=== PATIENT | male | born 1965 | race Caucasian/White ===

== ENCOUNTER → 2016-07-30 | Outpatient (CLI) | payer BC ==
[~2016-07-30] MED LIST: IBP800T PO
--- OUTSIDE RECORDS SUMMARY | 2016-07-30 12:46 | XMS REPORT | Continuity of Care Document ---
Author Author [facility] Address Unknown Phone Unavailable Allergies Medications Problems Date Dx Coded Attending Type Code Diagnosis Diagnosed By 07/16/2012 079.99 VIRAL SYNDROME 07/16/2012 784.91 POSTNASAL DRIP 07/16/2012 CONNIE GOEL APRN 079.99 VIRAL SYNDROME 07/16/2012 CONNIE GOEL APRN 784.91 POSTNASAL DRIP 07/16/2012 SCOTTY WALLIS JAMILAH R 079.99 VIRAL SYNDROME 07/16/2012 SCOTTY WALLIS, JAMILAH R 784.91 POSTNASAL DRIP 07/16/2012 SCOTTY WALLIS JAMILAH R 079.99 VIRAL SYNDROME 07/16/2012 SCOTTY WALLIS, JAMILAH R 784.91 POSTNASAL DRIP 06/25/2013 CONNIE GOEL APRN 719.47 PAIN- FOOT 06/25/2013 SCOTTY TICKET MARKER, JAMILAH R 719.47 PAIN- FOOT 06/25/2013 SCOTTY ADAMSN, JAMILAH R 719.47 PAIN- FOOT 07/22/2013 SCOTTY WALLIS, JAMILAH R 382.9 OTITIS MEDIA 07/22/2013 SCOTTY WALLIS, JAMILAH R 462 ACUTE PHARYNGITIS 07/22/2013 SCOTTY WALLIS JAMILAH R 786.2 COUGH 07/22/2013 SCOTTY WALLIS, JAMILAH R 382.9 OTITIS MEDIA 07/22/2013 SCOTTY WALLIS, JAMILAH R 462 ACUTE PHARYNGITIS 07/22/2013 SCOTTY WALLIS, JAMILAH R 786.2 COUGH 11/25/2013 SCOTTY WALLIS, JAMILAH R 784.0 HEADACHE 11/25/2013 SCOTTY WALLIS JAMILAH R V70.0 EXAM - ROUTINE H&P Procedures Code [place] [address] ROUTINE VENIPUNCTURE 11/29/2013 12312 CBC 11/29/2013 [id number] GFR CALC (RESULT ONLY) 11/29/2013 [id number] CMP 11/29/2013 Results Encounters ACCT No. Visit Date/Time Discharge Status Pt. Type Provider Facility Loc./Unit Complaint [id number] 11/29/2013 08:18:00 11/29/2013 23: 59:59 CLS Outpatient JAMILAH FAJARDO APRN [id number] 07/22/2013 16:38:00 07/22/2013 23: 59:59 CLS Outpatient JAMILAH FAJARDO APRN [id number] 06/25/2013 10:22:00 06/25/2013 23: 59:59 CLS Outpatient CONNIE GOEL APRN [id number] 07/16/2012 11:27:00 07/16/2012 23: 59:59 CLS Outpatient
--- NOTE | 2016-07-31 09:00 | ECHOCARDIOGRAPHY REPORT ---
PROCEDURE PHYSICIAN: LUCAS PATTON DATE OF PROCEDURE: 07/30/2016 TWO DIMENSIONAL ECHOCARDIOGRAM REPORT PRIMARY PHYSICIAN: OTHER PHYSICIAN: REFERRING PHYSICIAN: ORDERING PHYSICIAN: INDICATION FOR THE PROCEDURE: 1. Chest pain. 2. Hypertension. MEASUREMENTS DERIVED VALUES LV DIAMETER (LAX) NORMALS NORMALS Diastolic 4.8 (3.6-5.2) Eject. Fract. 50% (60%+/-6%) Systolic (2.3-3.9) Diastolic Vol. % Shortening (0.22-0.42) Systolic Vol. Aortic Root IVS THICKNESS Diastolic 1.1 (0.6-1.1) LVPW THICKNESS Diastolic 1.1 (0.6-1.1) LA DIAMETER Systolic 2.5 (2.1-3.7) FINDINGS: 1. Technically suboptimal study. 2. The left ventricle is normal in size. Endocardium was not well visualized in all segments. Overall systolic function appeared to be normal. Estimated ejection fraction 50%. 3. The left atrium is normal in size. No clot or thrombus were seen within the left atrium. 4. The right atrium and right ventricle are normal in size. No clot or thrombus were seen within the right side. 5. Mitral valve is normal in morphology with mild mitral regurgitation noted by color Doppler flow. Doppler across the mitral valve showed equalization of E and A, which is suggestive diastolic dysfunction. 6. Aortic valve leaflets were not well visualized. No significant aortic stenosis or regurgitation was seen. 7. Tricuspid valve is normal in morphology. Mild tricuspid regurgitation noted by color Doppler flow. Doppler across tricuspid valve estimated pulmonary artery pressure of 8+ right atrial pressure. 8. Pulmonic valve is functioning normally. 9. No pericardial effusion. IN CONCLUSION: 1. Technically difficult study. 2. Normal left ventricular size and systolic function. Estimated ejection fraction 50%. Endocardium was not well visualized in all segments. Diastolic dysfunction is suggested by Doppler. 3. Mild mitral and tricuspid regurgitation. 4. Estimated pulmonary artery pressure of 15 mmHg. Job ID: [id number] Dictated Date: 07/30/2016 16:59:21 Audit Associate Date: 07/31/2016 08:58:05 / kayla
== END ==
LOC: CARD 12:43
PROVIDERS: ATTEND Internal Medicine Cardiovascular Disease
DX: R07.89 Other chest pain (principal); R06.02 Shortness of breath; I10 Essential (primary) hypertension; E66.9 Obesity, unspecified
CPT/HCPCS: 93017; 93306

== ENCOUNTER 2017-06-09 17:58 | Emergency (ER) | payer BC ==
[~2017-06-09] VITALS: Ht 180.3 cm; Wt 122.0 kg
[2017-06-09] MEDS ORDERED: NS IV 500 ML 500 ML IV ONE (18:20)
[2017-06-09] MEDS ORDERED: LACTATED RINGERS 1,000 ML IV ONE (18:20)
[2017-06-09] MEDS ORDERED: ACETAMINOPHEN 500 MG TAB (TYLENOL) PO ONE (18:30)
[2017-06-09] MEDS ORDERED: ONDANSETRON 4 MG/2 ML (SDV) Z0FRAN IVP PRN (18:30)
[2017-06-09] MEDS ORDERED: IBUPROFEN 800 MG (MOTRIN) TAB PO ONE (18:30)
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
[2017-06-09] MEDS ORDERED: RT-ALBUTEROL/IPRATROPIUM 3 ML (DUONEB) VIAL INH ONE (18:45)
--- NOTE | 2017-06-09 18:56 | Diagnostic Imaging Report ---
INDICATION: Cough and congestion PA and lateral chest Heart size and pulmonary vascularity are normal. Lungs are clear. There are no effusions or pneumothoraces. IMPRESSION: Negative chest Dictated by: Dictated on workstation # [id number]
[2017-06-09 19:02] LABS: BASOPHILS % (AUTO) 1 % (0-10); EOSINOPHILS % (AUTO) 1 % (0-10); LYMPHOCYTES % (AUTO) 17 % (12-44); MEAN CORPUSCULAR HEMOGLOBIN 31 PG (25-34); MEAN CORPUSCULAR HGB CONC 34 G/DL (32-36); MEAN CORPUSCULAR VOLUME 89 FL (80-99); MEAN PLATELET VOLUME 9.9 FL (7.4-10.4); MONOCYTES # (AUTO) 1.2 X 10^3 (0.0-1.0); MONOCYTES % (AUTO) 21 % (0-12); NEUTROPHILS # (AUTO) 3.4 X 10^3 (1.8-7.8); NEUTROPHILS % (AUTO) 61 % (42-75); PLATELET COUNT 191 10^3/uL (130-400); RED BLOOD COUNT 5.09 10^6/uL (4.35-5.85); WHITE BLOOD COUNT 5.6 10^3/uL (4.3-11.0)
[2017-06-09 19:17] LABS: BAND NEUTROPHILS 0 %; BASOPHILS % (MANUAL) 0 %; EOSINOPHILS % (MANUAL) 0 %; LYMPHOCYTES % (MANUAL) 26 %; NEUTROPHILS % (MANUAL) 63 %
[2017-06-09 19:18] LABS: PROTHROMBIN TIME PATIENT 13.7 SEC (12.2-14.7)
[2017-06-09 19:20] LABS: ALANINE AMINOTRANSFERASE 142 U/L (0-55); ALBUMIN 4.3 GM/DL (3.2-4.5); ANION GAP 10 MMOL/L (5-14); ASPARTATE AMINO TRANSFERASE 88 U/L (5-34); BILIRUBIN,TOTAL 0.7 MG/DL (0.1-1.0); BLOOD UREA NITROGEN 14 MG/DL (7-18); BUN/CREATININE RATIO 15; CALCIUM 9.6 MG/DL (8.5-10.1); CARBON DIOXIDE 25 MMOL/L (21-32); CHLORIDE 104 MMOL/L (98-107); CREATININE SERUM 0.95 MG/DL (0.60-1.30); GFR ESTIMATED > 60; GLUCOSE 93 MG/DL (70-105); SODIUM 139 MMOL/L (135-145); TOTAL PROTEIN 7.6 GM/DL (6.4-8.2)
[2017-06-09] MEDS ORDERED: AZIT250T12 PO (20:42)
[2017-06-09 20:47] VITALS: BP 133/99
== END 2017-06-09 20:47 | disposition home or self-care (01) ==
LOC: EDUNIT# 17:58 → ER 17:59
DX: J11.1 Influenza due to unidentified influenza virus with other respiratory manifestations (principal); H66.92 Otitis media, unspecified, left ear; Z90.89 Acquired absence of other organs
CPT/HCPCS: 36415; 71020; 80053; 83605; 83735; 85007; 85027; 85610; 85730; 87040; 87430; 87804; 94640; 96361; 96374

== ENCOUNTER 2017-11-30 13:05 | Outpatient (CLI) | payer BC ==
[~2017-11-30 13:05] MED LIST changes: +AZIT250T12 PO
== END 2017-11-30 13:19 | disposition home or self-care (01) ==
LOC: SLEEP 13:05
PROVIDERS: ATTEND Nurse Practitioner Family
DX: G47.33 Obstructive sleep apnea (adult) (pediatric) (principal)

== ENCOUNTER → 2017-12-28 | Outpatient (CLI) | payer BC ==
[~2017-12-28] MED LIST changes: +AMOX-358 PO; +HYDR-757 PO; +RT-ALBUTEROL SULF 2.5 MG/3 ML PRE-MIX VIAL INH ONE; +RT-ALBUTEROL SULF 2.5 MG/3 ML PRE-MIX VIAL ONE
== END ==
LOC: RT 08:20
PROVIDERS: ATTEND Nurse Practitioner Family
DX: R06.02 Shortness of breath (principal)
CPT/HCPCS: 94060; 94726; 94729

== ENCOUNTER 2018-01-01 20:02 | Outpatient (CLI) | payer BC ==
[~2018-01-01 20:02] MED LIST changes: -AMOX-358 PO; -HYDR-757 PO; -RT-ALBUTEROL SULF 2.5 MG/3 ML PRE-MIX VIAL INH ONE; -RT-ALBUTEROL SULF 2.5 MG/3 ML PRE-MIX VIAL ONE
== END 2018-01-02 06:00 | disposition home or self-care (01) ==
LOC: SLEEP 20:02
PROVIDERS: ATTEND Nurse Practitioner
DX: G47.33 Obstructive sleep apnea (adult) (pediatric) (principal); R06.83 Snoring; R09.02 Hypoxemia; R51 Headache; R53.83 Other fatigue
CPT/HCPCS: 95811

== ENCOUNTER 2018-01-11 09:32 | Outpatient (RCR) | payer BC ==
[2018-01-31] MEDS ORDERED: HYDR-4226 PO (18:11)
[2018-02-26] MEDS ORDERED: NEBI2.5T5 PO (11:43)
[2018-03-01] MEDS ORDERED: PANT40TA2 PO (09:58)
== END 2018-01-19 | disposition home or self-care (01) ==
LOC: RT 09:32
PROVIDERS: ATTEND Nurse Practitioner Family
DX: J98.4 Other disorders of lung (principal)
CPT/HCPCS: 99211

== ENCOUNTER → 2018-01-21 | Outpatient (CLI) | payer BC ==
[~2018-01-21] MED LIST changes: +AMOX-358 PO; +HYDR-757 PO
== END ==
LOC: CARD 11:54
PROVIDERS: ATTEND Internal Medicine Cardiovascular Disease
DX: I10 Essential (primary) hypertension (principal); R07.89 Other chest pain; R06.02 Shortness of breath; G47.30 Sleep apnea, unspecified; E66.9 Obesity, unspecified
CPT/HCPCS: 93306

== ENCOUNTER 2018-01-31 16:03 | Emergency (ER) | payer BC ==
[~2018-01-31] VITALS: Ht 180.3 cm; Wt 127.0 kg
[~2018-01-31 16:03] MED LIST changes: -AMOX-358 PO; -HYDR-757 PO
--- OUTSIDE RECORDS SUMMARY | 2018-01-31 16:09 | XMS REPORT | Continuity of Care Document ---
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 Problems Date Dx Coded Attending Type Code Diagnosis Diagnosed By 05/27/2012 Ot 784.0 HEADACHE 07/16/2012 079.99 VIRAL SYNDROME 07/16/2012 784.91 POSTNASAL DRIP 07/16/2012 CONNIE GOEL APRN 079.99 VIRAL SYNDROME 07/16/2012 CONNIE GOEL APRN 784.91 POSTNASAL DRIP 07/16/2012 SCOTTY WALLIS, JAMILAH R 079.99 VIRAL SYNDROME 07/16/2012 SCOTTY WALLIS, JAMILAH R 784.91 POSTNASAL DRIP 07/16/2012 SCOTTY WALLIS, JAMILAH R 079.99 VIRAL SYNDROME 07/16/2012 SCOTTY WALLIS, JAMILAH R 784.91 POSTNASAL DRIP 06/25/2013 CONNIE GOEL APRN 719.47 PAIN- FOOT 06/25/2013 SCOTTY ADAMSN, JAMILAH R 719.47 PAIN- FOOT 06/25/2013 SCOTTY ADAMSN, JAMILAH R 719.47 PAIN- FOOT 07/22/2013 SCOTTY WALLIS JAMILAH R 382.9 OTITIS MEDIA 07/22/2013 SCOTTY ADAMSN, JAMILAH R 462 ACUTE PHARYNGITIS 07/22/2013 SCOTTY ADAMSN, JAMILAH R 786.2 COUGH 07/22/2013 SCOTTY ADAMSN, JAMILAH R 382.9 OTITIS MEDIA 07/22/2013 SCOTTY ADAMSN, JAMILAH R 462 ACUTE PHARYNGITIS 07/22/2013 SCOTTY WALLIS, JAMILAH R 786.2 COUGH 11/25/2013 SCOTTY WALLIS, JAMILAH R 784.0 HEADACHE 11/25/2013 SCOTTY WALLIS JAMILAH R V70.0 EXAM - ROUTINE H&P 07/31/2016 ABDI JOEL, BASHAR J Ot E66.9 OBESITY, UNSPECIFIED 07/31/2016 ABDI JOEL, LUCAS J Ot I10 ESSENTIAL (PRIMARY) HYPERTENSION 07/31/2016 LUCAS PATTON MD Ot R06.02 SHORTNESS OF BREATH 07/31/2016 LUCAS PATTON MD J Ot R07.89 OTHER CHEST PAIN 08/01/2016 LUCAS PATTON MD Ot E66.9 OBESITY, UNSPECIFIED 08/01/2016 LUCAS PATTON MD J Ot I10 ESSENTIAL (PRIMARY) HYPERTENSION 08/01/2016 LUCAS PATTON MD J Ot R06.02 SHORTNESS OF BREATH 08/01/2016 LUCAS PATTON MD J Ot R07.89 OTHER CHEST PAIN 08/14/2016 LUCAS PATTON MD Ot E66.9 OBESITY, UNSPECIFIED 08/14/2016 LUCAS PATTON MD J Ot I10 ESSENTIAL (PRIMARY) HYPERTENSION 08/14/2016 LUCAS PATTON MD Ot R06.02 SHORTNESS OF BREATH 08/14/2016 LUCAS PATTON MD Ot R07.89 OTHER CHEST PAIN 06/09/2017 NOA PALMER MD J Ot H66.92 OTITIS MEDIA, UNSPECIFIED, LEFT EAR 06/09/2017 SONIA PALMER MDUS J Ot J11.1 FLU DUE TO UNIDENTIFIED INFLUENZA VIRUS 06/09/2017 SONIA PALMER MDUS J Ot R50.9 FEVER, UNSPECIFIED 06/09/2017 ESTELA JOEL, NOA J Ot Z90.89 ACQUIRED ABSENCE OF OTHER ORGANS 06/11/2017 SONIA PALMER MDUS J Ot H66.92 OTITIS MEDIA, UNSPECIFIED, LEFT EAR 06/11/2017 SONIA PALMER MDUS J Ot J11.1 FLU DUE TO UNIDENTIFIED INFLUENZA VIRUS 06/11/2017 SONIA PALMER MDUS J Ot R50.9 FEVER, UNSPECIFIED 06/11/2017 ESTELA JOEL, NOA J Ot Z90.89 ACQUIRED ABSENCE OF OTHER ORGANS 12/01/2017 LEANDRO DAVILA MARKETING SENIOR RECRUITER Ot G47.33 OBSTRUCTIVE SLEEP APNEA (ADULT) (PEDIATR 12/16/2017 OLIVIA VASQUEZ MARKETING SENIOR RECRUITER Ot R05 COUGH 12/16/2017 OLIVIA VASQUEZ MARKETING SENIOR RECRUITER Ot R07.89 OTHER CHEST PAIN 12/21/2017 OLIVIA VASQUEZ MARKETING SENIOR RECRUITER Ot R05 COUGH 12/21/2017 CHRISTINA, OLIVIA E MARKETING SENIOR RECRUITER Ot R07.89 OTHER CHEST PAIN 12/30/2017 OLIVIA VASQUEZ MARKETING SENIOR RECRUITER Ot R06.02 SHORTNESS OF BREATH 12/31/2017 OLIVIA VASQUEZ MARKETING SENIOR RECRUITER Ot R05 COUGH 12/31/2017 OLIVIA VASQUEZ MARKETING SENIOR RECRUITER Ot R07.89 OTHER CHEST PAIN 01/02/2018 YEIMY DAVILA MARKETING SENIOR RECRUITER Ot G47.33 OBSTRUCTIVE SLEEP APNEA (ADULT) (PEDIATR 01/02/2018 YEIMY DAVILA MARKETING SENIOR RECRUITER Ot R06.83 SNORING 01/02/2018 GIOVANNIYEIMY MARKETING SENIOR RECRUITER Ot R09.02 HYPOXEMIA 01/02/2018 GIOVANNIYEIMY MARKETING SENIOR RECRUITER Ot R51 HEADACHE 01/02/2018 YEIMY DAVILA MARKETING SENIOR RECRUITER Ot R53.83 OTHER FATIGUE 01/05/2018 YEIMY DAVILA MARKETING SENIOR RECRUITER Ot G47.33 OBSTRUCTIVE SLEEP APNEA (ADULT) (PEDIATR 01/05/2018 GIOVANNIYEIMY MARKETING SENIOR RECRUITER Ot R06.83 SNORING 01/05/2018 YEIMY DAVILA MARKETING SENIOR RECRUITER Ot R09.02 HYPOXEMIA 01/05/2018 YEIMY DAVILA MARKETING SENIOR RECRUITER Ot R51 HEADACHE 01/05/2018 GIOVANNIYEIMY MARKETING SENIOR RECRUITER Ot R53.83 OTHER FATIGUE 01/13/2018 OLIVIA VASQUEZ MARKETING SENIOR RECRUITER Ot R06.02 SHORTNESS OF BREATH Procedures Code [place] [address] ROUTINE VENIPUNCTURE 11/29/2013 64605 CBC 11/29/2013 [id number] GFR CALC (RESULT ONLY) 11/29/2013 14838 CMP 11/29/2013 Results Test Result Range CBC - 05/22/17 17:06 WHITE BLOOD CELL COUNT 8.4 Thousand/uL 3.8-10.8 RED BLOOD CELL COUNT 5.42 Million/uL 4.20-5.80 HEMOGLOBIN 16.6 g/dL 13.2-17.1 HEMATOCRIT 47.7 % 38.5-50.0 MCV 88.0 fL 80.0-100.0 MCH 30.6 pg 27.0-33.0 MCHC 34.8 g/dL 32.0-36.0 RDW 12.7 % 11.0-15.0 PLATELET COUNT 229 Thousand/uL 140-400 MPV 9.6 fL 7.5-12.5 ABSOLUTE NEUTROPHILS 7375 cells/uL 5417-0547 ABSOLUTE LYMPHOCYTES 529 cells/uL 850-3900 ABSOLUTE MONOCYTES 470 cells/uL 200-950 ABSOLUTE EOSINOPHILS 8 cells/uL 15-500 ABSOLUTE BASOPHILS 17 cells/uL 0-200 NEUTROPHILS 87.8 % NRG LYMPHOCYTES 6.3 % NRG MONOCYTES 5.6 % NRG EOSINOPHILS 0.1 % NRG BASOPHILS 0.2 % NRG Influenza virus A and B antigen detection - 06/09/17 18:35 CALL POSITIVES (F1 HELP) CALLED TO DAVID IN ED AT 1922 NR FLU RESULT POSITIVE FOR INFLUENZA B ANTIGEN, NEG FOR A ANTIGEN, BY IA NRG Blood lactic acid measurement (moles/volume) - 06/09/17 18:40 Blood lactic acid measurement (moles/volume) 1.91 mmol/L 0.50-2.00 Complete blood count (CBC) with automated white blood cell (WBC) differential - 06/09/17 18:40 Blood leukocytes automated count (number/volume) 5.6 10*3/uL 4.3-11.0 Blood erythrocytes automated count (number/volume) 5.09 10*6/uL 4.35-5.85 Venous blood hemoglobin measurement (mass/volume) 15.6 g/dL 13.3-17.7 Blood hematocrit (volume fraction) 45 % 40-54 Automated erythrocyte mean corpuscular volume 89 [foz_us] 80-99 Automated erythrocyte mean corpuscular hemoglobin (mass per erythrocyte) 31 pg 25-34 Automated erythrocyte mean corpuscular hemoglobin concentration measurement ( mass/volume) 34 g/dL 32-36 Automated erythrocyte distribution width ratio 13.0 % 10.0-14.5 Automated blood platelet count (count/volume) 191 10*3/uL 130-400 Automated blood platelet mean volume measurement 9.9 [foz_us] 7.4-10.4 Automated blood neutrophils/100 leukocytes 61 % 42-75 Automated blood lymphocytes/100 leukocytes 17 % 12-44 Blood monocytes/100 leukocytes 21 % 0-12 Automated blood eosinophils/100 leukocytes 1 % 0-10 Automated blood basophils/100 leukocytes 1 % 0-10 Blood neutrophils automated count (number/volume) 3.4 10*3 1.8-7.8 Blood lymphocytes automated count (number/volume) 1.0 10*3 1.0-4.0 Blood monocytes automated count (number/volume) 1.2 10*3 0.0-1.0 Automated eosinophil count 0.0 10*3/uL 0.0-0.3 Automated blood basophil count (count/volume) 0.0 10*3/uL 0.0-0.1 Blood manual differential performed detection - 06/09/17 18:40 Blood monocytes/100 leukocytes 11 % NRG Manual blood segmented neutrophils/100 leukocytes 63 % NRG Blood band neutrophils/100 leukocytes 0 % NRG Manual blood lymphocytes/100 leukocytes 26 % NRG Manual eosinophils/100 leukocytes in nose 0 % NRG Manual blood basophils/100 leukocytes 0 % NRG Blood erythrocyte morphology finding identification NORMAL NRG Comprehensive metabolic panel - 06/09/17 18:40 Serum or plasma sodium measurement (moles/volume) 139 mmol/L 135-145 Serum or plasma potassium measurement (moles/volume) 4.0 mmol/L 3.6-5.0 Serum or plasma chloride measurement (moles/volume) 104 mmol/L 98-107 Carbon dioxide 25 mmol/L 21-32 Serum or plasma anion gap determination (moles/volume) 10 mmol/L 5-14 Serum or plasma urea nitrogen measurement (mass/volume) 14 mg/dL 7-18 Serum or plasma creatinine measurement (mass/volume) 0.95 mg/dL 0.60-1.30 Serum or plasma urea nitrogen/creatinine mass ratio 15 NRG Serum or plasma creatinine measurement with calculation of estimated glomerular filtration rate > NRG Serum or plasma glucose measurement (mass/volume) 93 mg/dL 70-105 Serum or plasma calcium measurement (mass/volume) 9.6 mg/dL 8.5-10.1 Serum or plasma total bilirubin measurement (mass/volume) 0.7 mg/dL 0.1-1.0 Serum or plasma alkaline phosphatase measurement (enzymatic activity/volume) 43 U/L 40-136 Serum or plasma aspartate aminotransferase measurement (enzymatic activity/ volume) 88 U/L 5-34 Serum or plasma alanine aminotransferase measurement (enzymatic activity/volume ) 142 U/L 0-55 Serum or plasma protein measurement (mass/volume) 7.6 g/dL 6.4-8.2 Serum or plasma albumin measurement (mass/volume) 4.3 g/dL 3.2-4.5 Magnesium - 06/09/17 18:40 Magnesium 2.0 mg/dL 1.8-2.4 PT panel in platelet poor plasma by coagulation assay - 06/09/17 18:40 Prothrombin time (PT) in platelet poor plasma by coagulation assay 13.7 s 12.2-14.7 INR in platelet poor plasma or blood by coagulation assay 1.0 0.8-1.4 Activated partial thromboplastin time (aPTT) in platelet poor plasma bycoagulation assay - 06/09/17 18:40 Activated partial thromboplastin time (aPTT) in platelet poor plasma bycoagulation assay 29 s 24-35 Bacterial blood culture - 06/09/17 18:40 Bacterial blood culture NG NRG Bacterial blood culture - 06/09/17 18:54 Bacterial blood culture NG NRG Streptococcus pyogenes antigen detection - 06/09/17 19:09 Streptococcus pyogenes antigen detection NEGATIVE NEGATIVE Bacterial throat culture - 06/09/17 19:09 Bacterial throat culture NBS NRG Arterial blood gas measurement - 12/15/17 15:55 Blood pCO2 40 mm[Hg] 35-45 Blood pO2 72 mm[Hg] 79-93 Arterial blood bicarbonate measurement (moles/volume) 23 mmol/L 23-27 Arterial blood base excess by calculation -0.9 mmol/L - 2.5-2.5 Arterial blood oxygen saturation measurement 96 % 94-100 * Inhaled oxygen flow rate ROOM AIR NRG Arterial blood pH measurement with patient temperature correction 7.39 7.37-7.43 Arterial blood carbon dioxide, total measurement (moles/volume) 24.6 mmol/L 21.0-31.0 Body site RIGHT RADIAL NRG Assessment of wrist artery patency prior to arterial puncture POSITIVE NRG Setting of ventilation mode NO NRG Measurement of body temperature 98.8 NRG Encounters ACCT No. Visit Date/Time Discharge Status Pt. Type Provider Facility Loc./Unit Complaint [id number] 11/29/2013 08:18:00 11/29/2013 23:59:59 CLS Outpatient JAMILAH FAJARDO APRN [id number] 07/22/2013 16:38:00 07/22/2013 23:59:59 CLS Outpatient JAMILAH FAJARDO APRN [id number] 06/25/2013 10:22:00 06/25/2013 23:59:59 CLS Outpatient CONNIE GOEL APRN [id number] 07/16/2012 11:27:00 07/16/2012 23:59:59 CLS Outpatient [id number] 06/16/2017 16:05:45 06/16/2017 23:59:59 CLS Outpatient [id number] 01/11/2018 09:32:00 01/11/2018 23:59:59 CLS Outpatient OLIVIA VASQUEZ MARKETING SENIOR RECRUITER [facility] PULM RESTRICTIVE LUNG DISEASE [id number] 01/05/2018 14:56:00 01/05/2018 23:59:59 CLS Preadmit OLIVIA VASQUEZ MARKETING SENIOR RECRUITER [facility] RAD RESTRICTIVE LUNG DISEASE,SOB,COUGH [id number] 01/01/2018 20:02:00 01/02/2018 06:00:00 DIS Outpatient YEIMY DAVILA MARKETING SENIOR RECRUITER [facility] SLEEP OBSERVED APNEAS, SNORING [id number] 12/28/2017 08:20:00 12/28/2017 23:59:59 CLS Outpatient OLIVIA VASQUEZ APRN [facility] RT SHORT OF BREATH ON EXERTION [id number] 12/15/2017 14:48:00 12/15/2017 23:59:59 CLS Outpatient OLIVIA VASQUEZ APRN [facility] RAD SOB ON EXERTION [id number] 12/11/2017 07:38:00 12/11/2017 23:59:59 CLS Preadmit LUCAS PATTON MD [facility] CARD ANTERIOR CHEST WALL PAIN ,HTN,SOB ON EXERTION [id number] 11/30/2017 13:05:00 11/30/2017 13:19:00 DIS Outpatient LEANDRO DAVILA APRN [facility] SLEEP G47.33 LALA [id number] 06/09/2017 17:59:00 06/09/2017 20:47:00 DIS Emergency NOA PALMER MD [facility] ER FEVER/DRY HEAVING/COUGH [id number] 07/30/2016 12:43:00 07/30/2016 23:59:59 CLS Outpatient LUCAS PATTON MD [facility] CARD ANTERIOR CHEST WALL PAIN [id number] 05/27/2012 20:45:00 Document Registration [id number] 05/22/2017 15:50:00 05/22/2017 23:59:59 CLS Outpatient DOMI SEE MAKENZIE [facility] [id number] 05/22/2017 15:50:00 Document Registration
--- OUTSIDE RECORDS SUMMARY | 2018-01-31 16:09 | XMS REPORT ---
Author Author CONNIE GOEL Organization [facility] Address [address] [place] [address] Care Team Providers Care Chicken And Fish Cleaner Name Role Phone CONNIE GOEL Unavailable PROBLEMS Type Condition ICD9-CM Code XVB03-PT Code Onset Dates Condition Status SNOMED Code Problem Unspecified otitis media 382.9 Active 15144725 Problem Cough 786.2 Active 24669061 Problem Pain in joint, ankle and foot 719.47 Active 695618960 Problem Routine general medical examination at health care facility V70.0 Active 238967688 Problem Unspecified viral infection, in conditions classified elsewhere and of unspecified site 079.99 Active 47182941 Problem Acute pharyngitis 462 Active 252872506 Problem Headache 784.0 Active 68657580 Problem Postnasal drip 784.91 Active 97114306 ALLERGIES Substance Reaction Event Type Date Status N.K.D.A. Unknown Non Drug Allergy May, Unknown SOCIAL HISTORY No smoking Hx information available PLAN OF CARE VITAL SIGNS Height 71 in 2016-06-20 Weight 270 lbs 2016-06-20 Temperature 98 degrees Fahrenheit 2016-06-20 Heart Rate 74 bpm 2016-06-20 Respiratory Rate 20 2016-06-20 Oximetry on room air:98 % 2016-06-20 BMI 37.65 kg/m2 2016-06-20 Blood pressure systolic 140 mmHg 2016-06-20 Blood pressure diastolic 100 mmHg 2016-06-20 MEDICATIONS Medication Instructions Dosage Frequency Start Date End Date Duration Status PredniSONE 20 mg Orally Once a day 2 tablets 24h May, Jun, 05 days Active Mucinex D 60-600 mg take 1 tablet by Oral route 2 times per day for 10 day( s)PRN Jun, Active Doxycycline Hyclate 100 MG Orally every 12 hrs 1 capsule 12h May, Jun, 5 day(s) Active RESULTS No Results PROCEDURES Procedure Date Ordered Related Diagnosis Body Site MEASURE BLOOD OXYGEN LEVEL Jun 20, 2016 Office Visit, Est Pt., Level 3 Jun 20, 2016 IMMUNIZATIONS No Known Immunizations
--- OUTSIDE RECORDS SUMMARY | 2018-01-31 16:09 | XMS REPORT ---
Author Author BERNARDO ONEILL Organization [facility] Address [address] [place] [address] Care Team Providers Care Stencil Typist Name Role Phone MAI BERNARDO Unavailable PROBLEMS Type Condition ICD9-CM Code NAV90-UK Code Onset Dates Condition Status SNOMED Code Problem Cough 786.2 Active 33540308 Problem Routine general medical examination at health care facility V70.0 Active 309422222 Problem Unspecified viral infection, in conditions classified elsewhere and of unspecified site 079.99 Active 10409046 Problem Unspecified otitis media 382.9 Active 76740100 Problem Headache 784.0 Active 65590173 Problem Postnasal drip 784.91 Active 00086181 Problem Acute pharyngitis 462 Active 969278872 Problem Pain in joint, ankle and foot 719.47 Active 627444595 ALLERGIES No Known Allergies ENCOUNTERS Encounter Location Date Diagnosis [facility] [id number] [place] [phone] May, Body aches R52 ; Cough R05 and Low oxygen saturation R79.81 [facility] [id number] [place] [address] May, Bronchitis J40 [facility] [id number] [place] [address] Sep, [facility] [id number] [place] [address] Sep, [facility] [address] [address] Jun, [facility] [address] [address] Jun, [facility] [address] [address] Nov, [facility] [address] [id number] [address] Nov, [facility] [id number] [place] [address] Nov, [facility] [id number] [address] Nov, [facility] [id number] [place] [address] Nov, [facility] [id number] [place] [address] Nov, [facility] [id number] [place] [address] Jun, [facility] [id number] [place] [address] Jun, [facility] [id number] [place] [address] Jun, [facility] [id number] [place] [address] Jun, [facility] [id number] [place] [address] Jun, [facility] [id number] [address] Jun, IMMUNIZATIONS No Known Immunizations SOCIAL HISTORY Never Assessed REASON FOR VISIT vomiting/ diarrhea/ MORILLO/ bilat ear pain/ body aches/ fever/ dry cough x 3 days Murali BACH PLAN OF CARE Activity Details Follow Up prn Reason: VITAL SIGNS Height 71 in 2017-05-22 Weight 277.0 lbs 2017-05-22 Temperature 97.8 degrees Fahrenheit 2017-05-22 Heart Rate 122 bpm 2017-05-22 Respiratory Rate 26 2017-05-22 Oximetry 92 % 2017-05-22 BMI 38.63 kg/m2 2017-05-22 Blood pressure systolic 146 mmHg 2017-05-22 Blood pressure diastolic 90 mmHg 2017-05-22 MEDICATIONS Medication Instructions Dosage Frequency Start Date End Date Duration Status Lora Perles 100 mg 1 capsule by Oral route 3 times per day PRN Jun, Not-Taking Topamax 50 mg 1 Tablet by Oral route 2 times per day for headache Nov, Not-Taking Cefdinir 300 mg 1 Tablet by Po route 2 times per day for 10 days antibio Jun, Not-Taking Advil Active NyQuil Active Mucinex D 60-600 mg take 1 tablet by Oral route 2 times per day for 10 day( s)PRN Jun, Not-Taking PredniSONE 20 mg 2 tablet by Oral route 1 time per day for 5 day(s) Jun, Not-Taking RESULTS Name Result Date Reference Range INFLUENZA A & B (IN HOUSE) 2017-05-22 INFLUENZA A negative INFLUENZA B negative Control + Lot # [id number] Exp date 12/16/2018 Xray : Chest (IN HOUSE) 2017-05-22 CBC 2017-05-22 WHITE BLOOD CELL COUNT 8.4 3.8-10.8 RED BLOOD CELL COUNT 5.42 4.20-5.80 HEMOGLOBIN 16.6 13.2-17.1 HEMATOCRIT 47.7 38.5-50.0 MCV 88.0 80.0-100.0 MCH 30.6 27.0-33.0 MCHC 34.8 32.0-36.0 RDW 12.7 11.0-15.0 PLATELET COUNT 229 140-400 MPV 9.6 7.5-12.5 ABSOLUTE NEUTROPHILS 7375 [phone] ABSOLUTE LYMPHOCYTES [phone] ABSOLUTE MONOCYTES 470 200-950 ABSOLUTE EOSINOPHILS 8 15-500 ABSOLUTE BASOPHILS 17 0-200 NEUTROPHILS 87.8 LYMPHOCYTES 6.3 MONOCYTES 5.6 EOSINOPHILS 0.1 BASOPHILS 0.2 PROCEDURES Procedure Date Ordered Result Body Site MEASURE BLOOD OXYGEN LEVEL May 22, 2017 INFLUENZA ASSAY W/OPTIC May 22, 2017 COMPLETE CBC W/AUTO DIFF WBC May 22, 2017 CHEST X-RAY May 22, 2017 VENIPUNCT, ROUTINE* May 22, 2017 INSTRUCTIONS MEDICATIONS ADMINISTERED No Known Medications MEDICAL (GENERAL) HISTORY Type Description Date Surgical History tonsillectomy
[2018-01-31] MEDS ORDERED: NS 100 ML (IVPB) BAG IV ONE (16:30)
[2018-01-31] MEDS ORDERED: fentaNYL INJECTION 100 MCG/2 ML AMP IVP ONE (16:30)
[2018-01-31] MEDS ORDERED: IOHEXOL 350 MG/ML 100 ML (OMNIPAQUE 350) VIAL IV ONE (16:30)
[2018-01-31] MEDS ORDERED: NS IV 1000 ML 1,000 ML IV SCH (16:30)
[2018-01-31] MEDS ORDERED: KETOROLAC 30 MG/ML VIAL IVP ONE (16:30)
[2018-01-31 16:35] LABS: BASOPHILS % (AUTO) 0 % (0-10); EOSINOPHILS # (AUTO) 0.1 10^3/uL (0.0-0.3); EOSINOPHILS % (AUTO) 1 % (0-10); HEMATOCRIT 45 % (40-54); HEMOGLOBIN 15.4 G/DL (13.3-17.7); LYMPHOCYTES # (AUTO) 2.2 X 10^3 (1.0-4.0); LYMPHOCYTES % (AUTO) 23 % (12-44); MEAN CORPUSCULAR HEMOGLOBIN 31 PG (25-34); MEAN CORPUSCULAR HGB CONC 35 G/DL (32-36); MEAN CORPUSCULAR VOLUME 88 FL (80-99); MEAN PLATELET VOLUME 9.1 FL (7.4-10.4); MONOCYTES % (AUTO) 10 % (0-12); NEUTROPHILS # (AUTO) 6.4 X 10^3 (1.8-7.8); NEUTROPHILS % (AUTO) 66 % (42-75); PLATELET COUNT 238 10^3/uL (130-400); RED BLOOD COUNT 5.05 10^6/uL (4.35-5.85); WHITE BLOOD COUNT 9.7 10^3/uL (4.3-11.0)
--- NOTE | 2018-01-31 16:45 | ED Abdominal Pain ---
General Stated Complaint: PAIN IN LEFT LOWER ABD Source of Information: Patient Exam Limitations: No Limitations History of Present Illness Date Seen by Provider: Jan 31, 2018 Time Seen by Provider: 16:43 Initial Comments To ER with 48 hours of left lower quadrant abdominal pain. He's had left lower quadrant abdominal pain for which she attributed to constipation. She took a laxative last night and had a bowel movement this morning but no relief in the pain. No nausea or vomiting. He's had chills about 2 nights ago but none since then. No measured fevers. No dysuria. No known history of diverticulosis or diverticulitis. Timing/Duration: 1-2 Days Severity/Quality: Aching, Cramping Location: LLQ Radiation: No Radiation Activities at Onset: None Associated Symptoms: Fever/Chills; No Nausea/Vomiting Allergies and Home Medications Allergies Uncoded Allergies: MUSCLE RELAXERS (Allergy, Unknown, 12/28/17) Home Medications Amoxicillin/Potassium Clav 1 Each Tablet, 1 EACH PO BID Prescribed by: LIBBY KENNY on 01/31/181810 Azithromycin 250 Mg Tablet, 250 MG PO UD TAKE 2 TABLETS ON DAY ONE THEN TAKE 1 TABLET DAILY FOR FOUR MORE DAYS Prescribed by: NOA PALMER on 06/09/17 204 Hydrocodone/Acetaminophen 1 Each Tablet, 1 EACH PO Q4H PRN for PAIN-MODERATE TO SEVERE Prescribed by: LIBBY KENNY on 01/31/181810 Ibuprofen 800 Mg Tab, 800 MG PO Q8H Prescribed by: TAIMR WAGONER on 05/27/12 2313 Patient Home Medication List Home Medication List Reviewed: Yes Review of Systems Constitutional: see HPI EENTM: No Symptoms Reported Respiratory: No Symptoms Reported Cardiovascular: See HPI, Chest Pain Gastrointestinal: No Symptoms Reported Genitourinary: No Symptoms Reported Musculoskeletal: no symptoms reported Skin: no symptoms reported Psychiatric/Neurological: No Symptoms Reported Endocrine: No Symptoms Reported Past Bsxpjqa-Zdcqad-Tuatre Hx Patient Social History Recent Foreign Travel: No Contact w/Someone Who Travel: No Past Medical History Surgeries: Yes Tonsillectomy Respiratory: No Cardiac: No Neurological: No Genitourinary: No Gastrointestinal: No Musculoskeletal: No Endocrine: No HEENT: No Cancer: No Psychosocial: No Integumentary: No Blood Disorders: No Physical Exam Vital Signs Capillary Refill : Height/Weight/BMI Height: 5'11.00" Weight: 269lbs. oz. 122.753354lc; BMI Method:Stated General Appearance: WD/WN, no apparent distress, obese HEENT: PERRL/EOMI, normal ENT inspection Neck: non-tender, full range of motion Respiratory: no respiratory distress, no accessory muscle use Cardiovascular: regular rate, rhythm, no murmur Gastrointestinal: normal bowel sounds, soft, tenderness (left lower abdomen) Extremities: normal range of motion, non-tender Neurologic/Psychiatric: alert, normal mood/affect, oriented x 3 Skin: normal color, warm/dry Progress/Results/Core Measures Results/Orders Lab Results Laboratory Tests Test 01/31/18 16:24 01/31/18 16:35 Range/Units White Blood Count 9.7 4.3-11.0 10^3/uL Red Blood Count 5.05 4.35-5.85 10^6/uL Hemoglobin 15.4 13.3-17.7 G/DL Hematocrit 45 40-54 % Mean Corpuscular Volume 88 80-99 FL Mean Corpuscular Hemoglobin 31 25-34 PG Mean Corpuscular Hemoglobin Concent 35 32-36 G/DL Red Cell Distribution Width 13.0 10.0-14.5 % Platelet Count 238 130-400 10^3/uL Mean Platelet Volume 9.1 7.4-10.4 FL Neutrophils (%) (Auto) 66 42-75 % Lymphocytes (%) (Auto) 23 12-44 % Monocytes (%) (Auto) 10 0-12 % Eosinophils (%) (Auto) 1 0-10 % Basophils (%) (Auto) 0 0-10 % Neutrophils # (Auto) 6.4 1.8-7.8 X 10^3 Lymphocytes # (Auto) 2.2 1.0-4.0 X 10^3 Monocytes # (Auto) 1.0 0.0-1.0 X 10^3 Eosinophils # (Auto) 0.1 0.0-0.3 10^3/uL Basophils # (Auto) 0.0 0.0-0.1 10^3/uL Sodium Level 139 135-145 MMOL/L Potassium Level 3.7 3.6-5.0 MMOL/L Chloride Level 105 98-107 MMOL/L Carbon Dioxide Level 25 21-32 MMOL/L Anion Gap 9 5-14 MMOL/L Blood Urea Nitrogen 13 7-18 MG/DL Creatinine 0.93 0.60-1.30 MG/DL Estimat Glomerular Filtration Rate > 60 BUN/Creatinine Ratio 14 Glucose Level 92 70-105 MG/DL Calcium Level 9.7 8.5-10.1 MG/DL Corrected Calcium 9.4 8.5-10.1 MG/DL Total Bilirubin 1.0 0.1-1.0 MG/DL Aspartate Amino Transf (AST/SGOT) 42 H 5-34 U/L Alanine Aminotransferase (ALT/SGPT) 70 H 0-55 U/L Alkaline Phosphatase 37 L 40-136 U/L Total Protein 7.6 6.4-8.2 GM/DL Albumin 4.4 3.2-4.5 GM/DL Urine Color YELLOW Urine Clarity CLEAR Urine pH 6.5 5-9 Urine Specific [place] 1.015 L 1.016-1.022 Urine Protein 1+ H NEGATIVE Urine Glucose (UA) NEGATIVE NEGATIVE Urine Ketones NEGATIVE NEGATIVE Urine Nitrite NEGATIVE NEGATIVE Urine Bilirubin NEGATIVE NEGATIVE Urine Urobilinogen 4 H NORMAL MG/DL Urine Leukocyte Esterase 1+ H NEGATIVE Urine RBC (Auto) NEGATIVE NEGATIVE Urine RBC RARE /HPF Urine WBC 0-2 /HPF Urine Squamous Epithelial Cells 0-2 /HPF Urine Renal Epithelial Cells NONE /HPF Urine Crystals NONE /LPF Urine Bacteria NEGATIVE /HPF Urine Casts NONE /LPF Urine Mucus LARGE H /LPF Urine Culture Indicated NO My Orders Orders - LIBBY KENNY APRN Cbc With Automated Diff (01/31/18 16:19) Comprehensive Metabolic Panel (01/31/18 16:19) Iv He[place]ock-Insert (Order) (01/31/18 16:19) Ua Culture If Indicated (01/31/18 16:19) Ct Abdomen/Pelvis W (01/31/18 16:19) Ketorolac Injection (Toradol Injection) (01/31/18 16:30) Fentanyl Injection (Sublimaze Injection (01/31/18 16:30) Ns Iv 1000 Ml (Sodium Chloride 0.9%) (01/31/18 16:30) Iohexol Injection (Omnipaque 350 Mg/Ml 1 (01/31/18 16:30) Ns (Ivpb) (Sodium Chloride 0.9% Ivpb Bag (01/31/18 16:30) Medications Given in ED Current Medications Medications Dose Ordered Sig/Addison Route Start Time Stop Time Status Last Admin Dose Admin Fentanyl Citrate 50 mcg ONCE ONCE IVP 01/31/18 16:30 01/31/18 16:31 DC 01/31/18 16:35 50 MCG Iohexol 100 ml ONCE ONCE IV 01/31/18 16:30 01/31/18 16:34 DC 01/31/18 17:30 100 ML Ketorolac Tromethamine 15 mg ONCE ONCE IVP 01/31/18 16:30 01/31/18 16:31 DC 01/31/18 16:36 15 MG Sodium Chloride 100 ml ONCE ONCE IV 01/31/18 16:30 01/31/18 16:34 DC 01/31/18 17:30 100 ML Diagnostic Imaging Diagonstic Imaging: CT Comments NAME: [facility] REC#: [id number] PT STATUS: REG ER : 1965 PHYSICIAN: LIBBY KENNY APRN ADMIT DATE: 01/31/18/ER Draft Date of Exam:01/31/18 CT ABDOMEN/PELVIS W PROCEDURE: CT abdomen and pelvis with contrast. TECHNIQUE: Multiple contiguous axial images were obtained through the abdomen and pelvis after administration of intravenous contrast. INDICATION: Left lower quadrant pain. COMPARISON: There are no prior studies available for comparison. FINDINGS: There is diverticulosis of the sigmoid and descending colon. Furthermore, near the junction of the sigmoid and descending colon, there is mild distortion of the pericolic fat. This does suggest edema/inflammation, and I suspect that there is an element of mild acute diverticulitis present. There is no diverticular mass or abscess identified, and there is no sign of a microperforation. There is no pelvic mass or free fluid collection noted either. The urinary bladder and prostate gland are grossly unremarkable. The appendix was visualized and is not abnormally thickened. There is no sign of acute appendicitis. There is a small 4 mm nonobstructive calculus within the left kidney. There is no sign of obstruction of either collecting system. There is no evidence for a solid renal mass either. The liver is homogeneous and not enlarged. The spleen, adrenals, gallbladder, aorta, and inferior vena cava are unremarkable for an acute abnormality. The pancreas is not enlarged, but there is a well-circumscribed 1.5 cm rounded area of low density within the body of the pancreas. I suspect that this is a benign process such as a cyst. If previous studies are available, they would be helpful for comparison. If there are no prior exams, then MRI would be recommended for further study. The stomach is partially filled with fluid and consequently difficult to assess. The lung bases are clear. The bone windows show no sign of a fracture or of a destructive lesion. IMPRESSION: 1. There is diverticulosis of the sigmoid and descending colon, and the slight distortion of the pericolic fat adjacent to the junction of the sigmoid and descending colon does suggest edema/inflammation. Most likely, this is related to mild acute diverticulitis. There is no diverticular mass or abscess visualized, however. 2. There is no acute abnormality of the abdomen or pelvis noted otherwise. 3. The 1.5 cm low-density lesion within the body of the pancreas is of uncertain etiology. This is most likely a benign process, but MRI would be recommended to better characterize this finding unless previous studies are available to demonstrate that it is stable. Dictated on workstation # [id number] Dict: 01/31/18 1745 Trans: 01/31/18 1758 [id number] Interpreted by: CAIO CYR MD Electronically signed by: Departure Impression Primary Impression: Diverticulitis Additional Impression: Pancreatic incidentaloma Disposition: 01 HOME, SELF-CARE Condition: Stable Departure-Patient Inst. Decision time for Depature: 18:10 Referrals: SHAGUFTA RAMIREZ MD (PCP/Family) Primary Care Physician Patient Instructions: Diverticulitis (DC), Diverticulosis (DC) Add. Discharge Instructions: 1. Antibiotics as directed 2. Pain medication as needed 3. Return to ER for any worsening such as fevers or nausea and follow-up with Dr. Dr. Ramirez next week to schedule MRI of the abdomen to further evaluate the lesion in the pancreas. Follow a clear liquid diet only for the next 24 hours. Scripts Hydrocodone/Acetaminophen ([place] 5-325 Tablet) 1 Each Tablet 1 EACH PO Q4H PRN for PAIN-MODERATE TO SEVERE, #14 TAB Prov: LIBBY KENNY SLITTER HELPER 01/31/18 Amoxicillin/Potassium Clav (Augmentin 875-125 Tablet) 1 Each Tablet 1 EACH PO BID, #14 TAB Prov: LIBBY KENNY SLITTER HELPER 01/31/18 Work/School Note: Work Release Form Date Seen in the Emergency Department: Jan 31, 2018 Return to Work: Feb 02, 2018 Copy Copies To 1: SHAGUFAT RAMIREZ MD, PETER J APRN Jan 31, 2018 16:45
[2018-01-31 16:46] LABS: BILIRUBIN,URINE NEGATIVE (NEGATIVE); CLARITY,URINE CLEAR; COLOR,URINE YELLOW; GLUCOSE, URINE (UA) NEGATIVE (NEGATIVE); KETONES,URINE NEGATIVE (NEGATIVE); LEUKOCYTE ESTERASE ,URINE 1+ (NEGATIVE); NITRITE,URINE NEGATIVE (NEGATIVE); PH,URINE 6.5 (5-9); PROTEIN,URINE 1+ (NEGATIVE); UROBILINOGEN,URINE 4 MG/DL (NORMAL)
[2018-01-31 16:57] LABS: ALANINE AMINOTRANSFERASE 70 U/L (0-55); ALBUMIN 4.4 GM/DL (3.2-4.5); ALKALINE PHOSPHATASE 37 U/L (40-136); BUN/CREATININE RATIO 14; CALCIUM 9.7 MG/DL (8.5-10.1); CARBON DIOXIDE 25 MMOL/L (21-32); CHLORIDE 105 MMOL/L (98-107); CREATININE SERUM 0.93 MG/DL (0.60-1.30); GFR ESTIMATED > 60; GLUCOSE 92 MG/DL (70-105); POTASSIUM 3.7 MMOL/L (3.6-5.0); SODIUM 139 MMOL/L (135-145); TOTAL PROTEIN 7.6 GM/DL (6.4-8.2)
[2018-01-31 16:59] LABS: BACTERIA,URINE NEGATIVE /HPF; RBC,URINE RARE /HPF; SQUAMOUS EPITHELIAL CELL,UR 0-2 /HPF; WBC,URINE 0-2 /HPF
--- NOTE | 2018-01-31 17:59 | Diagnostic Imaging Report ---
PROCEDURE: CT abdomen and pelvis with contrast. TECHNIQUE: Multiple contiguous axial images were obtained through the abdomen and pelvis after administration of intravenous contrast. INDICATION: Left lower quadrant pain. COMPARISON: There are no prior studies available for comparison. FINDINGS: There is diverticulosis of the sigmoid and descending colon. Furthermore, near the junction of the sigmoid and descending colon, there is mild distortion of the pericolic fat. This does suggest edema/inflammation, and I suspect that there is an element of mild acute diverticulitis present. There is no diverticular mass or abscess identified, and there is no sign of a microperforation. There is no pelvic mass or free fluid collection noted either. The urinary bladder and prostate gland are grossly unremarkable. The appendix was visualized and is not abnormally thickened. There is no sign of acute appendicitis. There is a small 4 mm nonobstructive calculus within the left kidney. There is no sign of obstruction of either collecting system. There is no evidence for a solid renal mass either. The liver is homogeneous and not enlarged. The spleen, adrenals, gallbladder, aorta, and inferior vena cava are unremarkable for an acute abnormality. The pancreas is not enlarged, but there is a well-circumscribed 1.5 cm rounded area of low density within the body of the pancreas. I suspect that this is a benign process such as a cyst. The possibility that this is related to a cystic pancreatic neoplasm should certainly be considered however. If previous studies are available, they would be helpful for comparison. If there are no prior exams, then MRI would be recommended for further study. The stomach is partially filled with fluid and consequently difficult to assess. The lung bases are clear. The bone windows show no sign of a fracture or of a destructive lesion. IMPRESSION: 1. There is diverticulosis of the sigmoid and descending colon, and the slight distortion of the pericolic fat adjacent to the junction of the sigmoid and descending colon does suggest edema/inflammation. Most likely, this is related to mild acute diverticulitis. There is no diverticular mass or abscess visualized, however. 2. There is no acute abnormality of the abdomen or pelvis noted otherwise. 3. The 1.5 cm low-density lesion within the body of the pancreas is of uncertain etiology. This is most likely a benign process, but MRI would be recommended to better characterize this finding unless previous studies are available to demonstrate that it is stable. Dictated by: Dictated on workstation # [id number]
[2018-01-31] MEDS ORDERED: HYDR-757 PO (18:11)
[2018-01-31] MEDS ORDERED: AMOX-358 PO (18:11)
[2018-01-31] MEDS ORDERED: RX-HYDROCODONE/APAP 5/325 MG #4 TAB PK PO PRN (18:15)
[2018-01-31] MEDS ORDERED: AUGMENTIN 875 MG TAB (AMOXICILLIN/CLAVULANATE) PO SCH (18:15)
[2018-01-31 18:38] VITALS: BP 121/84
== END 2018-01-31 18:38 | disposition home or self-care (01) ==
LOC: EDUNIT# 16:03 → ER 16:05
DX: K57.30 Diverticulosis of large intestine without perforation or abscess without bleeding (principal); K86.89 Other specified diseases of pancreas; Z88.8 Allergy status to other drugs, medicaments and biological substances; Z90.89 Acquired absence of other organs
CPT/HCPCS: 36415; 74177; 80053; 81000; 85025

== ENCOUNTER → 2018-02-02 | Outpatient (CLI) | payer BC ==
[~2018-02-02] MED LIST changes: +AMOX-358 PO; +HYDR-757 PO; +IOHEXOL 350 MG/ML 150 ML (OMNIPAQUE 350) VIAL IV ONE; +NS 250 ML (IVPB) BAG IV ONE
[2018-02-02 11:19] LABS: BUN/CREATININE RATIO 12; CREATININE SERUM 0.91 MG/DL (0.60-1.30); GFR ESTIMATED > 60
--- NOTE | 2018-02-02 12:38 | Diagnostic Imaging Report ---
PROCEDURE: CT angiography of the chest with contrast. TECHNIQUE: Multiple contiguous axial images were obtained through the chest after uneventful bolus administration of intravenous contrast. Reconstructed CTA MIP acquisitions were also performed. INDICATION: Shortness of breath and cough. COMPARISON: No prior studies are available for comparison. FINDINGS: Evaluation of the pulmonary arterial system is without evidence of thromboembolism. No filling defects are seen within central, lobar or segmental branches. The thoracic aorta is normal caliber. No dissection is seen. No pericardial or pleural fluid is identified. No axillary lymphadenopathy is seen. No definite mediastinal or hilar lymphadenopathy is detected. The lungs are clear. No infiltrate, nodule or mass is detected. Upper abdomen again demonstrates small low-density mass in the body of the pancreas, approximately 50 mm in size and similar to study from two days earlier. There appears to be hepatic steatosis as well. IMPRESSION: 1. No evidence of pulmonary embolism or thoracic aortic dissection. No acute feature in the chest is seen. 2. Hepatic steatosis. 3. Pancreatic circumscribed low density, described on CT abdomen and pelvis study from two days earlier. Please see recommendations from previous report. Dictated by: Dictated on workstation # [id number]
== END ==
LOC: RAD 10:41
PROVIDERS: ATTEND Nurse Practitioner Family
DX: K76.0 Fatty (change of) liver, not elsewhere classified (principal); J98.4 Other disorders of lung; J30.2 Other seasonal allergic rhinitis; E66.9 Obesity, unspecified
CPT/HCPCS: 36415; 71275; 82565; 84520

== ENCOUNTER → 2018-02-04 | Outpatient (CLI) | payer BC ==
[~2018-02-04] MED LIST changes: +GADOBUTROL 15 MMOL/15 ML (GADAVIST) VIAL IV ONE; -IOHEXOL 350 MG/ML 150 ML (OMNIPAQUE 350) VIAL IV ONE; -NS 250 ML (IVPB) BAG IV ONE
--- NOTE | 2018-02-04 09:15 | Diagnostic Imaging Report ---
PROCEDURE: MR imaging abdomen with and without contrast. TECHNIQUE: Multiplanar, multisequence MR imaging of the abdomen was performed with and without contrast. INDICATION: Left lower quadrant pain for 6 days. Patient also had a recent CT abdomen and pelvis study demonstrating a low-density lesion in the body of the pancreas. The study is performed for further evaluation. Correlation is made with CT abdomen and pelvis from 01/31/2018. The liver and gallbladder are unremarkable. The spleen is unremarkable. The pancreas demonstrates a circumscribed T1 hypointense and T2 hyperintense lesion in the body corresponding with the CT abnormality. This measures approximately 14 mm in size. No pancreatic ductal dilatation is seen. No abnormal enhancement is seen following contrast administration. No adrenal mass is identified. Left kidney does contain a small approximately 15 mm cyst. Aorta is non-aneurysmal. There is no ascites. IMPRESSION: A 14 mm circumscribed cystic lesion within the body of the pancreas. No abnormal enhancement is seen. This may represent a benign pancreatic cyst versus other cystic lesion such as a intraductal papillary neoplasm. Followup CT in 4-6 months is recommended to confirm stability. Dictated by: Dictated on workstation # [id number]
== END ==
LOC: RAD 07:01
PROVIDERS: ATTEND Nurse Practitioner Family
DX: K86.2 Cyst of pancreas (principal)
CPT/HCPCS: 74183

== ENCOUNTER 2018-02-26 11:48 | Outpatient (CLI) | payer BC ==
[~2018-02-26] VITALS: Ht 180.3 cm; Wt 127.0 kg
[~2018-02-26 11:48] MED LIST changes: -GADOBUTROL 15 MMOL/15 ML (GADAVIST) VIAL IV ONE; +HYDR-4226 PO; -HYDR-757 PO; +NEBI2.5T5 PO
[2018-03-01] MEDS ORDERED: PANT40TA2 PO (09:58)
== END 2018-02-26 12:15 | disposition home or self-care (01) ==
LOC: PREOP 11:48
PROVIDERS: ATTEND Surgery
DX: Z01.818 Encounter for other preprocedural examination (principal)

== ENCOUNTER 2018-03-01 07:42 | Day surgery (SDC) | payer BC ==
[~2018-03-01] VITALS: Ht 180.3 cm; Wt 127.0 kg
--- OUTSIDE RECORDS SUMMARY | 2018-03-01 07:55 | XMS REPORT | CCD ---
Author Author Natalie Hays Organization [facility] Address [address] [place] [address] Phone Care Team Providers Care Yarn Wrapper Name Role Phone PP Unavailable CCM Unavailable Summary Purpose Interface Exchange Insurance Providers Payer name Policy type / Coverage type Covered democrat ID Effective Begin Date Effective End Date Blue Cross Blue [facility] Blue Cross/Blue Shield [id number] 2017 Unknown Family history Sister Diagnosis Age At Onset Diabetes mellitus Type 2 Unknown Father Diagnosis Age At Onset Colon cancer Unknown Hypertension Unknown Social History Social History Element Codes Description Effective Dates Marital status Unknown 06/18/[address]: 298031432 Never smoker 06/18/2017 Has the patient ever used illegal drugs? Unknown Has never used illegal drugs 06/18/2017 Allergies, Adverse Reactions, Alerts Substance Reaction Codes Entered Date Inactivated Date Status NO KNOWN DRUG ALLERGIES Unknown 06/18/2017 No Inactive Date Active Past Medical History Illness Codes Condition Status Onset Date Resolved Date Disease of pancreas, unspecified ICD-9: 577.9 ICD-10: K86.9 Active 02/03/2018 Unknown Diverticulitis of large intestine without perforation or abscess without bleeding ICD-9: 562.11 ICD-10: K57.32 Active 02/03/2018 Unknown Essential (primary) hypertension ICD-9: 401.1 ICD-10: I10 Active 11/20/2017 Unknown Other fatigue ICD-9: 780.79 ICD-10: R53.83 Active 11/06/2017 Unknown Other obesity due to excess calories ICD-9: 278.00 ICD-10: E66.09 Active 11/20/2017 Unknown Acute bronchitis due to other specified organisms ICD-9: 466.0 ICD-10: J20.8 Active 06/18/2017 Unknown Acute laryngopharyngitis ICD-9: 465.0 ICD-10: J06.0 Active 06/18/2017 Unknown Problems Condition Codes Effective Dates Condition Status Disease of pancreas, unspecified ICD-9: 577.9 ICD-10: K86.9 02/03/2018 Active Diverticulitis of large intestine without perforation or abscess without bleeding ICD-9: 562.11 ICD-10: K57.32 02/03/2018 Active Essential (primary) hypertension ICD-9: 401.1 ICD-10: I10 11/20/2017 Active Other fatigue ICD-9: 780.79 ICD-10: R53.83 11/06/2017 Active Other obesity due to excess calories ICD-9: 278.00 ICD-10: E66.09 11/20/2017 Active Acute bronchitis due to other specified organisms ICD-9: 466.0 ICD-10: J20.8 06/18/2017 Active Acute laryngopharyngitis ICD-9: 465.0 ICD-10: J06.0 06/18/2017 Active Medications Medication Codes Instructions Start Date Stop Date Status Fill Instructions Cipro 500 mg tablet RxNorm: 786629 1 Tablet(s) PO BID 201702/12/2018 Active Flagyl 500 mg tablet RxNorm: 013888 1 Tablet(s) PO TID 201702/12/2018 Active Bystolic 5 mg tablet RxNorm: 472891 1/2 Tablet(s) PO daily 12/201704/25/2018 Active Bystolic 5 mg tablet RxNorm: 573262 1/2 Tablet(s) PO daily 12/201701/25/2018 Inactive Bystolic 5 mg tablet RxNorm: 109591 1/2 Tablet(s) PO daily 08/2017 No Stop Date Active Tamiflu 75 mg capsule RxNorm: 033364 1 Capsule(s) PO BID 201606/22/2017 Inactive ceftriaxone 500 mg solution for injection RxNorm: 7035629 Inj 06/18/2017 06/18/2017 Inactive prednisone 20 mg tablet RxNorm: 913822 2 Tablet(s) PO daily 06/22/2017 Inactive Kenalog 40 mg/mL suspension for injection RxNorm: 8113366 Milliliter(s) Inj 06/18/2017 06/18/2017 Inactive Medication Administered Medication Codes Instructions Start Date Status Kenalog 40 mg/mL suspension for injection RxNorm: 6572938 Milliliter 06/18/2017 No longer Active ceftriaxone 500 mg solution for injection RxNorm: 7028619 06/18/2017 No longer Active Immunizations No Immunization data Assessments Condition Codes Effective Dates Disease of pancreas, unspecified ICD-10: K86.9 ICD-9: 577.9 02/03/2018 Diverticulitis of large intestine without perforation or abscess without bleeding ICD-10: K57.32 ICD-9: 562.11 02/03/2018 Essential (primary) hypertension ICD-10: I10 ICD-9: 401.1 11/20/2017 Other fatigue ICD-10: R53.83 ICD-9: 780.79 11/20/2017 Other obesity due to excess calories ICD-10: E66.09 ICD-9: 278.00 11/20/2017 Acute bronchitis due to other specified organisms ICD-10: J20.8 ICD-9: 466.0 06/18/2017 Acute laryngopharyngitis ICD-10: J06.0 ICD-9: 465.0 06/18/2017 Reason For Visit Reason For Visit Effective Dates Notes Hospital Follow Up 02/03/2018 fatigue 11/20/2017 fatigue 11/06/2017 cough 06/18/2017 Results Observation Observation Code Item Item Code Result Date Tsh Ord6 TSH (3rd IS) 1.83 uIU/mL 11/09/2017 Comp Metabolic Lkw406 NA 138 mEq/L 11/09/2017 Comp Metabolic Ypf315 K 4.1 mEq/L 11/09/2017 Comp Metabolic Zqq730 CL 103 mEq/L 11/09/2017 Comp Metabolic Htl966 CO2 27.0 mEq/L 11/09/2017 Comp Metabolic Lkx177 ANION GAP 12 11/09/2017 Comp Metabolic Oke462 GLUCOSE 104 mg/dL 11/09/2017 Comp Metabolic Goj712 Creat 0.9 mg/dL 11/09/2017 Comp Metabolic Gwd772 eGFR 98 ml/min/1.73m2 11/09/2017 Comp Metabolic Ntq900 BUN 10 mg/dL 11/09/2017 Comp Metabolic Skp769 B/C Ratio 11.5 Ratio 11/09/2017 Comp Metabolic Qxc118 CALCIUM 9.1 mg/dL 11/09/2017 Comp Metabolic Dkn468 ALK PHOS 37 U/L 11/09/2017 Comp Metabolic Uit712 AST(SGOT) 42 U/L 11/09/2017 Comp Metabolic Hji503 ALT(SGPT) 74 U/L 11/09/2017 Comp Metabolic Qqp378 BILI T 0.7 mg/dL 11/09/2017 Comp Metabolic Xzg921 ALBUMIN 4.4 g/dL 11/09/2017 Comp Metabolic Smq197 TPRO 6.7 g/dL 11/09/2017 Comp Metabolic Xqg479 GLOB 2.3 g/dL 11/09/2017 Comp Metabolic Tys933 A/G Ratio 1.9 Ratio 11/09/2017 Comp Metabolic Cyt932 Osmo 275 mOsmo 11/09/2017 Lipid Ord30 CHOL 144 mg/dL 11/09/2017 Lipid Ord30 HDL 33.0 mg/dl 11/09/2017 Lipid Ord30 TRIG 135 mg/dL 11/09/2017 Lipid Ord30 LDL 84 mg/dL 11/09/2017 Lipid Ord30 C/HDL 4.4 Ratio 11/09/2017 Cbc With Differential Ord2 WBC 8.61 K/ul 11/09/2017 Cbc With Differential Ord2 RBC 5.38 M/ul 11/09/2017 Cbc With Differential Ord2 HGB 16.4 g/dl 11/09/2017 Cbc With Differential Ord2 HCT 48.0 % 11/09/2017 Cbc With Differential Ord2 Neut% 66.5 % 11/09/2017 Cbc With Differential Ord2 MCV 89.2 fl 11/09/2017 Cbc With Differential Ord2 Lymph% 23.7 % 11/09/2017 Cbc With Differential Ord2 MCH 30.5 pg 11/09/2017 Cbc With Differential Ord2 Treasure% 7.9 % 11/09/2017 Cbc With Differential Ord2 Eos% 1.4 % 11/09/2017 Cbc With Differential Ord2 MCHC 34.2 pg 11/09/2017 Cbc With Differential Ord2 Baso% 0.5 % 11/09/2017 Cbc With Differential Ord2 PLT 230 K/ul 11/09/2017 Cbc With Differential Ord2 RDW 12.9 % 11/09/2017 Cbc With Differential Ord2 Neut ABS# 5.73 K/ul 11/09/2017 Cbc With Differential Ord2 Lymph ABS# 2.04 K/ul 11/09/2017 Cbc With Differential Ord2 Treasure ABS# 0.7 K/ul 11/09/2017 Cbc With Differential Ord2 Eos ABS# 0.1 K/ul 11/09/2017 Cbc With Differential Ord2 Baso ABS# 0.0 K/ul 11/09/2017 Review of Systems System Result Effective Dates Constitutional recent illness 02/03/2018 Constitutional No chills 02/03/2018 Constitutional No diaphoresis 02/03/2018 Constitutional No fever 02/03/2018 Eyes No eye erythema 02/03/2018 Ears/Nose/Throat/Neck No nasal discharge 02/03/2018 Ears/Nose/Throat/Neck No nasal allergies 02/03/2018 Cardiovascular No chest pain/pressure Respiratory No cough 02/03/2018 Respiratory No chest congestion 2017 Respiratory dyspnea on exertion 2017 Respiratory No dyspnea 02/03/2018 Gastrointestinal abdominal pain 2017 Gastrointestinal No constipation 2017 Gastrointestinal No diarrhea 02/03/2018 Gastrointestinal No vomiting 02/03/2018 Gastrointestinal nausea 02/03/2018 Gastrointestinal No jaundice 02/03/2018 Gastrointestinal No hematochezia 2017 Gastrointestinal No melena 02/03/2018 Genitourinary/Nephrology No flank pain Genitourinary/Nephrology No hematuria Musculoskeletal No joint complaint 2017 Dermatologic No rash 02/03/2018 Neurologic No alteration of consciousness 02/03/2018 Neurologic No mental status change 2017 Constitutional No recent illness 2017 Constitutional No chills 11/20/2017 Constitutional No diaphoresis 11/20/2017 Constitutional fatigue 11/20/2017 Constitutional No fever 11/20/2017 Constitutional malaise 11/20/2017 Eyes No eye erythema 11/20/2017 Ears/Nose/Throat/Neck No nasal discharge 11/20/2017 Ears/Nose/Throat/Neck snoring 11/20/2017 Cardiovascular No chest pain/pressure 06/2017 Cardiovascular No edema 11/20/2017 Cardiovascular fatigue 11/20/2017 Respiratory No cough 11/20/2017 Respiratory No chest congestion 2017 Respiratory snoring 11/20/2017 Gastrointestinal No abdominal pain 2017 Gastrointestinal No constipation 2017 Gastrointestinal No diarrhea 11/20/2017 Gastrointestinal No vomiting 11/20/2017 Gastrointestinal No nausea 11/20/2017 Gastrointestinal No melena 11/20/2017 Gastrointestinal No hematochezia 2017 Dermatologic No rash 11/20/2017 Neurologic No alteration of consciousness 11/20/2017 Neurologic No mental status change 2017 Constitutional No recent illness 2017 Constitutional No chills 11/06/2017 Constitutional No diaphoresis 11/06/2017 Constitutional fatigue 11/06/2017 Constitutional No fever 11/06/2017 Constitutional malaise 11/06/2017 Eyes No eye erythema 11/06/2017 Ears/Nose/Throat/Neck No nasal discharge 11/06/2017 Ears/Nose/Throat/Neck snoring 11/06/2017 Cardiovascular No chest pain/pressure Cardiovascular No edema 11/06/2017 Cardiovascular fatigue 11/06/2017 Respiratory No chest congestion 2017 Respiratory No cough 11/06/2017 Respiratory snoring 11/06/2017 Gastrointestinal No abdominal pain 2017 Gastrointestinal No constipation 2017 Gastrointestinal No diarrhea 11/06/2017 Gastrointestinal No hematochezia 2017 Gastrointestinal No melena 11/06/2017 Gastrointestinal No nausea 11/06/2017 Gastrointestinal No vomiting 11/06/2017 Dermatologic No rash 11/06/2017 Neurologic No alteration of consciousness 11/06/2017 Neurologic No mental status change 2017 Constitutional recent illness 06/18/2017 Constitutional chills 06/18/2017 Constitutional No diaphoresis 06/18/2017 Constitutional fatigue 06/18/2017 Constitutional malaise 06/18/2017 Eyes No eye erythema 06/18/2017 Ears/Nose/Throat/Neck nasal allergies Ears/Nose/Throat/Neck nasal discharge Ears/Nose/Throat/Neck postnasal drip Ears/Nose/Throat/Neck sinus congestion Ears/Nose/Throat/Neck sore throat 2016 Cardiovascular No chest pain/pressure Respiratory cough 06/18/2017 Respiratory dyspnea on exertion 2016 Respiratory chest congestion 06/18/2017 Respiratory No cigarette smoking 2016 Gastrointestinal No abdominal pain 2016 Gastrointestinal No constipation 2016 Gastrointestinal No diarrhea 06/18/2017 Gastrointestinal No vomiting 06/18/2017 Gastrointestinal No nausea 06/18/2017 Gastrointestinal No melena 06/18/2017 Gastrointestinal No hematochezia 2016 Musculoskeletal No joint complaint 2016 Dermatologic No rash 06/18/2017 Neurologic No alteration of consciousness 06/18/2017 Neurologic No mental status change 2016 Physical Exam Exam Name System Name Item Name Status Result Effective Dates Notes Full Exam - General 1994 Constitutional general appearance Overall: well developed 02/03/2018 None Full Exam - General 1994 Constitutional general appearance Overall: in no acute distress 02/03/2018 None Full Exam - General 1994 Constitutional general appearance Overall: well nourished 02/03/2018 None Full Exam - General 1994 Eyes conjunctiva /eyelids Overall: conjunctiva clear 02/03/2018 None Full Exam - General 1994 Eyes conjunctiva /eyelids Overall: cornea clear 02/03/2018 None Full Exam - General 1994 Eyes conjunctiva /eyelids Overall: eyelids normal 02/03/2018 None Full Exam - General 1994 Ears/Nose/Throat lips/teeth/gingiva Overall: benign lips 02/03/2018 None Full Exam - General 1994 Ears/Nose/Throat oral cavity/pharynx/larynx Overall: oral mucosa clear 02/03/2018 None Full Exam - General 1994 Respiratory auscultation Diffuse: diminished 02/03/2018 None Full Exam - General 1994 Respiratory auscultation Overall: breath sounds clear bilaterally 02/03/2018 None Full Exam - General 1994 Respiratory respiratory effort/rhythm Overall: normal rate 02/03/2018 None Full Exam - General 1994 Respiratory respiratory effort/rhythm Overall: no retractions 02/03/2018 None Full Exam - General 1994 Cardiovascular auscultation of heart Rate: regular rate 02/03/2018 None Full Exam - General 1994 Cardiovascular auscultation of heart Rhythm: regular rhythm 02/03/2018 None Full Exam - General 1994 Abdomen abdominal exam Overall: normal bowel sounds 02/03/2018 None Full Exam - General 1994 Abdomen abdominal exam Lower quadrant: tender to palpation 02/03/2018 None Full Exam - General 1994 Abdomen abdominal exam Lower quadrant: dull pain 02/03/2018 None Full Exam - General 1994 Abdomen abdominal exam Lower quadrant: no guarding 02/03/2018 None Full Exam - General 1994 Abdomen abdominal exam Lower quadrant: no rebound tenderness 02/03/2018 None Full Exam - General 1994 Abdomen abdominal exam Lower quadrant: soft 02/03/2018 None Full Exam - General 1994 Abdomen abdominal exam Upper quadrant: non-tender to palpation 02/03/2018 None Full Exam - General 1994 Abdomen abdominal exam Upper quadrant: no guarding 02/03/2018 None Full Exam - General 1994 Abdomen abdominal exam Upper quadrant: no rebound tenderness 02/03/2018 None Full Exam - General 1994 Abdomen abdominal exam Upper quadrant: soft 02/03/2018 None Full Exam - General 1994 Musculoskeletal head and neck Overall: head atraumatic 02/03/2018 None Full Exam - General 1994 Musculoskeletal gait and station Overall: normal station 02/03/2018 None Full Exam - General 1994 Musculoskeletal gait and station Overall: normal gait 02/03/2018 None Full Exam - General 1994 Neurologic cranial nerves Overall: crainial nerves 2 - 12 grossly intact 02/03/2018 None Full Exam - General 1994 Psychiatric orientation/consciousness Overall: oriented to person, place and time 02/03/2018 None Full Exam - General 1994 Psychiatric mood and affect Overall: normal mood and affect 02/03/2018 None Full Exam - General 1994 Psychiatric appearance Overall: well-groomed, good eye contact 02/03/2018 None Full Exam - General 1994 Constitutional general appearance Overall: well developed 11/20/2017 None Full Exam - General 1994 Constitutional general appearance Overall: in no acute distress 11/20/2017 None Full Exam - General 1994 Constitutional general appearance Nourishment: obese 11/20/2017 None Full Exam - General 1994 Eyes conjunctiva /eyelids Overall: conjunctiva clear 11/20/2017 None Full Exam - General 1994 Eyes conjunctiva /eyelids Overall: cornea clear 11/20/2017 None Full Exam - General 1994 Eyes pupils and irises Overall: pupils equal, round, reactive to light and accomodation 11/20/2017 None Full Exam - General 1994 Ears/Nose/Throat otoscopic exam Overall: tympanic membranes clear 11/20/2017 None Full Exam - General 1994 Ears/Nose/Throat otoscopic exam Overall: external auditory canals clear 11/20/2017 None Full Exam - General 1994 Ears/Nose/Throat lips/teeth/gingiva Overall: benign lips 11/20/2017 None Full Exam - General 1994 Ears/Nose/Throat oral cavity/pharynx/larynx Overall: oral mucosa clear 11/20/2017 None Full Exam - General 1994 Respiratory respiratory effort/rhythm Overall: normal rate 11/20/2017 None Full Exam - General 1994 Respiratory respiratory effort/rhythm Overall: no retractions 11/20/2017 None Full Exam - General 1994 Respiratory auscultation Overall: breath sounds clear bilaterally 11/20/2017 None Full Exam - General 1994 Respiratory auscultation Diffuse: diminished 11/20/2017 None Full Exam - General 1994 Cardiovascular auscultation of heart Overall: normal heart sounds 11/20/2017 None Full Exam - General 1994 Cardiovascular auscultation of heart Rate: tachycardia 11/20/2017 None Full Exam - General 1994 Abdomen abdominal exam Overall: normal bowel sounds 11/20/2017 None Full Exam - General 1994 Musculoskeletal head and neck Overall: head atraumatic 11/20/2017 None Full Exam - General 1994 Neurologic cranial nerves Overall: crainial nerves 2 - 12 grossly intact 11/20/2017 None Full Exam - General 1994 Psychiatric orientation/consciousness Overall: oriented to person, place and time 11/20/2017 None Full Exam - General 1994 Psychiatric appearance Overall: well-groomed, good eye contact 11/20/2017 None Full Exam - General 1994 Psychiatric mood and affect Overall: normal mood and affect 11/20/2017 None Full Exam - General 1994 Constitutional general appearance Overall: well developed 11/06/2017 None Full Exam - General 1994 Constitutional general appearance Overall: in no acute distress 11/06/2017 None Full Exam - General 1994 Constitutional general appearance Nourishment: obese 11/06/2017 None Full Exam - General 1994 Eyes conjunctiva /eyelids Overall: conjunctiva clear 11/06/2017 None Full Exam - General 1994 Eyes conjunctiva /eyelids Overall: cornea clear 11/06/2017 None Full Exam - General 1994 Eyes pupils and irises Overall: pupils equal, round, reactive to light and accomodation 11/06/2017 None Full Exam - General 1994 Ears/Nose/Throat otoscopic exam Overall: external auditory canals clear 11/06/2017 None Full Exam - General 1994 Ears/Nose/Throat otoscopic exam Overall: tympanic membranes clear 11/06/2017 None Full Exam - General 1994 Ears/Nose/Throat lips/teeth/gingiva Overall: benign lips 11/06/2017 None Full Exam - General 1994 Ears/Nose/Throat oral cavity/pharynx/larynx Overall: oral mucosa clear 11/06/2017 None Full Exam - General 1994 Respiratory auscultation Overall: breath sounds clear bilaterally 11/06/2017 None Full Exam - General 1994 Respiratory auscultation Diffuse: diminished 11/06/2017 None Full Exam - General 1994 Respiratory respiratory effort/rhythm Overall: no retractions 11/06/2017 None Full Exam - General 1994 Respiratory respiratory effort/rhythm Overall: normal rate 11/06/2017 None Full Exam - General 1994 Cardiovascular auscultation of heart Overall: normal heart sounds 11/06/2017 None Full Exam - General 1994 Cardiovascular auscultation of heart Rate: tachycardia 11/06/2017 None Full Exam - General 1994 Abdomen abdominal exam Overall: normal bowel sounds 11/06/2017 None Full Exam - General 1994 Musculoskeletal head and neck Overall: head atraumatic 11/06/2017 None Full Exam - General 1994 Neurologic cranial nerves Overall: crainial nerves 2 - 12 grossly intact 11/06/2017 None Full Exam - General 1994 Psychiatric orientation/consciousness Overall: oriented to person, place and time 11/06/2017 None Full Exam - General 1994 Psychiatric mood and affect Overall: normal mood and affect 11/06/2017 None Full Exam - General 1994 Psychiatric appearance Overall: well-groomed, good eye contact 11/06/2017 None Full Exam - General 1994 Constitutional general appearance Overall: well developed 06/18/2017 None Full Exam - General 1994 Constitutional general appearance Overall: well nourished 06/18/2017 None Full Exam - General 1994 Constitutional general appearance Overall: in no acute distress 06/18/2017 None Full Exam - General 1994 Eyes conjunctiva /eyelids Overall: conjunctiva clear 06/18/2017 None Full Exam - General 1994 Eyes conjunctiva /eyelids Overall: cornea clear 06/18/2017 None Full Exam - General 1994 Eyes conjunctiva /eyelids Overall: eyelids normal 06/18/2017 None Full Exam - General 1994 Eyes pupils and irises Overall: pupils equal, round, reactive to light and accomodation 06/18/2017 None Full Exam - General 1994 Ears/Nose/Throat otoscopic exam Overall: external auditory canals clear 06/18/2017 None Full Exam - General 1994 Ears/Nose/Throat otoscopic exam Tympanic membrane: air- fluid level 06/18/2017 None Full Exam - General 1994 Ears/Nose/Throat lips/teeth/gingiva Overall: benign lips 06/18/2017 None Full Exam - General 1994 Ears/Nose/Throat oral cavity/pharynx/larynx Overall: oral mucosa clear 06/18/2017 None Full Exam - General 1994 Ears/Nose/Throat oral cavity/pharynx/larynx Posterior Pharynx: clear post nasal drainage 06/18/2017 None Full Exam - General 1994 Ears/Nose/Throat oral cavity/pharynx/larynx Oropharynx: erythema 06/18/2017 None Full Exam - General 1994 Respiratory respiratory effort/rhythm Overall: normal rate 06/18/2017 None Full Exam - General 1994 Respiratory respiratory effort/rhythm Overall: no retractions 06/18/2017 None Full Exam - General 1994 Cardiovascular auscultation of heart Overall: normal heart sounds 06/18/2017 None Full Exam - General 1994 Cardiovascular auscultation of heart Overall: regular rate 06/18/2017 None Full Exam - General 1994 Abdomen abdominal exam Overall: normal bowel sounds 06/18/2017 None Full Exam - General 1994 Abdomen abdominal exam Overall: no tenderness 06/18/2017 None Full Exam - General 1994 Lymphatic neck nodes Overall: posterior cervical chain benign 06/18/2017 None Full Exam - General 1994 Lymphatic neck nodes Overall: anterior cervical chain benign 06/18/2017 None Full Exam - General 1994 Musculoskeletal head and neck Overall: head atraumatic 06/18/2017 None Full Exam - General 1994 Musculoskeletal gait and station Overall: normal station 06/18/2017 None Full Exam - General 1994 Musculoskeletal gait and station Overall: normal gait 06/18/2017 None Full Exam - General 1994 Neurologic cranial nerves Overall: crainial nerves 2 - 12 grossly intact 06/18/2017 None Full Exam - General 1994 Psychiatric orientation/consciousness Overall: oriented to person, place and time 06/18/2017 None Full Exam - General 1994 Psychiatric mood and affect Overall: normal mood and affect 06/18/2017 None Full Exam - General 1994 Respiratory auscultation Diffuse: diminished 06/18/2017 None Full Exam - General 1994 Respiratory auscultation Lower lung field: rhonchi 06/18/2017 None Full Exam - General 1994 Respiratory auscultation Lower lung field: expiratory wheezes 06/18/2017 None Procedures Procedure Codes Date TRIAMCINOLONE ACET INJ NOS CPT-4: J3301 06/18/2017 ROCEPHIN, PER 250 MG CPT-4: J0696 06/18/2017 Vital Signs Date Vital 02/03/2018 Blood Pressure 1: 116/82 Code : 8480-6 BMI: 39.6 Code : 45905-5 Heart Rate 1 : 78 bpm Height: 5'11" SpO2: 92% Weight: 284 lbs 11/20/2017 Blood Pressure 1: 134/90 Code : 8480-6 BMI: 39.6 Code : 23598-2 Heart Rate 1 : 102 bpm Height: 5'11 " SpO2: 98% Weight: 284 lbs 11/06/2017 Blood Pressure 1: 140/90 Code : 8480-6 BMI: 39.6 Code : 10583-9 Heart Rate 1 : 105 bpm Height: 5'11 " SpO2: 98% Weight: 284 lbs 06/18/2017 Blood Pressure 1: 130/88 Code : 8480-6 BMI: 37.4 Code : 72535-1 Heart Rate 1 : 87 bpm Height: 5'11" SpO2: 97% Weight: 268 lbs Functional Status No Functional Status data History of Present Illness Symptom Name Status Result Effective Date Notes Hospital Follow Up _ pain 02/03/2018 None Hospital Follow Up _ Other: abdominal pain 02/03/2018 None Hospital Follow Up Quality acute 02/03/2018 None fatigue Limitation on Activities is incapacitating 11/20/2017 None fatigue Pertinent Findings Denies cough 11/20/2017 None fatigue Pertinent Findings Denies dyspnea 11/20/2017 None fatigue Quality chronic 11/20/2017 None fatigue Quality worsening 11/20/2017 None fatigue Onset and Resolution ongoing 11/20/2017 None fatigue Limitation on Activities moderately limits activities 11/06/2017 None fatigue Pertinent Findings Denies fever 11/06/2017 None fatigue Pertinent Findings Denies dyspnea 11/06/2017 None fatigue Quality worsening 11/06/2017 None fatigue Quality chronic 11/06/2017 None fatigue Onset and Resolution ongoing 11/06/2017 None weight gain/obesity Location globally 11/06/2017 None weight gain/obesity Quality chronic 11/06/2017 None weight gain/obesity Onset and Resolution ongoing 11/06/2017 None weight gain/obesity Pertinent Findings Denies dyspnea 11/06/2017 None cough Quality acute None cough Quality intermittent 06/18/2017 None cough Quality dry None cough Pertinent Findings Denies chills 06/18/2017 None cough Pertinent Findings Denies fever 06/18/2017 None cough Pertinent Findings dyspnea 06/18/2017 None cough Pertinent Findings Denies sputum production 06/18/2017 None cough Pertinent Findings lethargy 06/18/2017 None Advance Directives No Advance Directive data Encounters Encounter Performer Location Codes Date 08635 EST. PATIENT, LEVEL III Diagnosis: Diverticulitis of large intestine without perforation or abscess without bleeding[ICD10: K57.32] Diagnosis: Disease of pancreas, unspecified[ICD10: K86.9] Natalie Robin MD, [facility] CPT-4: 99513 02/03/2018 [id number] EST. PATIENT, LEVEL IV Diagnosis: Other fatigue[ICD10: R53.83] Diagnosis: Other obesity due to excess calories[ICD10: E66.09] Diagnosis: Essential (primary) hypertension[ICD10: I10] Natalie Robin MD, [facility] CPT-4: 94715 11/20/2017 40479 EST. PATIENT, LEVEL IV Diagnosis: Other fatigue[ICD10: R53.83] Diagnosis: Essential (primary) hypertension[ICD10: I10] Diagnosis: Other obesity due to excess calories[ICD10: E66.09] [facility] CPT-4: 10719 11/06/2017 OFFICE VISIT, NEW - LEVEL 3 Diagnosis: Acute laryngopharyngitis[ICD10: J06.0] Diagnosis: Acute bronchitis due to other specified organisms[ICD10: J20.8] Natalie Robin MD, [facility] CPT-4: 13976 06/18/2017 Plan of Care Planned Activity Notes Codes Status Date Referral: Tay Denis Referral Appointment Requested 03/01/2018 Care Plan: MRI ABDOMEN W/O & W/DYE Pending 02/04/2018 Care Plan: Referral Order SNOMED-CT : [id number] Pending 02/04/2018 Visit Plan: Diverticulitis - rx for antibiotic sent to pt' s pharmacy - pt advised to avoid seeds, nuts, popcorn, or any other food which has been proven to upset the pt's stomach. Lesion on pancreas - MRI scheduled 02/03/2018 Appointment: Natalie Hays [facility] (15 min) Moderate 02/03/2018 Patient Education: Patient Medication Summary Completed 02/03/2018 Care Plan: BMI Above normal followup SELF-MGMT EDUC & TRAIN 1 PT Pending 2017 Visit Plan: Hypertension - uncontrolled - the patient's medications have been modified as documented in the visit note. The patient has been counseled to cut back on salt in diet for a no added salt diet, low fat diet, start an exercise program with low weight bearing exercises and higher aerobic activity for heart health. The patient is to check blood pressure readings as an outpatient and either fax, call, or email the readings to the office next week for practitioner to review. The pt is to call for acute concerns. Fatigue - pt is to have sleep study Obesity - chronic issue with this patient. The pt has been counseled about diet changes, calorie restriction, and need to exercise. Pt will RTC in one month for weight check. 11/20/2017 Appointment: Natalie Hays [facility]el[facility] [phone] [facility] (30 min) Complex 11/20/2017 Patient Education: Patient Medication Summary Completed 11/20/2017 Patient Education: Obesity Completed 11/20/2017 Visit Plan: Hypertension - uncontrolled - the patient's medications have been modified as documented in the visit note. The patient has been counseled to cut back on salt in diet for a no added salt diet, low fat diet, start an exercise program with low weight bearing exercises and higher aerobic activity for heart health. The patient is to check blood pressure readings as an outpatient and either fax, call, or email the readings to the office next week for practitioner to review. The pt is to call for acute concerns. Fatigue - will check labs and treat as indicated, will order sleep study Obesity - chronic issue with this patient. The pt has been counseled about diet changes, calorie restriction, and need to exercise. Pt will RTC in one month for weight check. 11/06/2017 Appointment: Natalie [facility] [phone] [facility] ([facility] min) Complex 11/06/2017 Patient Education: Patient Medication Summary Completed 11/06/2017 Patient Education: Obesity Completed 11/06/2017 Visit Plan: URI - Pt advised to increase fluids, vitamin C. Discussed natural and expected course of this diagnosis and need to alert me if symptoms do not follow expected course, or if any worse. RX sent to patient' s pharmacy. Bronchitis - acute case of bronchitis identified. Pt has been given antibiotics, steroids as appropriate, and pt has been instructed to call if symptoms are not improved, or if symptoms acutely worsen. 06/18/2017 Visit Plan: URI - Pt advised to increase fluids, vitamin C. Discussed natural and expected course of this diagnosis and need to alert me if symptoms do not follow expected course, or if any worse. RX sent to patient' s pharmacy. Bronchitis - acute case of bronchitis identified. Pt has been given antibiotics, steroids as appropriate, and pt has been instructed to call if symptoms are not improved, or if symptoms acutely worsen. 06/18/2017 Appointment: Natalie Hays [facility]el[facility] [address] [facility] [place] New Patient 06/18/2017 Patient Education: Patient Medication Summary Completed 06/18/2017 Referral: Tay Denis Referral Initiated Instructions Comment . Hypertension - uncontrolled - the patient's medications have been modified as documented in the visit note. The patient has been counseled to cut back on salt in diet for a no added salt diet, low fat diet, start an exercise program with low weight bearing exercises and higher aerobic activity for heart health. The patient is to check blood pressure readings as an outpatient and either fax , call, or email the readings to the office next week for practitioner to review. The pt is to call for acute concerns. Fatigue - pt is to have sleep study Obesity - chronic issue with this patient. The pt has been counseled about diet changes, calorie restriction, and need to exercise. Pt will RTC in one month for weight check. . URI - Pt advised to increase fluids, vitamin C. Discussed natural and expected course of this diagnosis and need to alert me if symptoms do not follow expected course, or if any worse. RX sent to patient's pharmacy. Bronchitis - acute case of bronchitis identified. Pt has been given antibiotics , steroids as appropriate, and pt has been instructed to call if symptoms are not improved, or if symptoms acutely worsen. . URI - Pt advised to increase fluids, vitamin C. Discussed natural and expected course of this diagnosis and need to alert me if symptoms do not follow expected course, or if any worse. RX sent to patient's pharmacy. Bronchitis - acute case of bronchitis identified. Pt has been given antibiotics , steroids as appropriate, and pt has been instructed to call if symptoms are not improved, or if symptoms acutely worsen. . Hypertension - uncontrolled - the patient's medications have been modified as documented in the visit note. The patient has been counseled to cut back on salt in diet for a no added salt diet, low fat diet, start an exercise program with low weight bearing exercises and higher aerobic activity for heart health. The patient is to check blood pressure readings as an outpatient and either fax , call, or email the readings to the office next week for practitioner to review. The pt is to call for acute concerns. Fatigue - will check labs and treat as indicated, will order sleep study Obesity - chronic issue with this patient. The pt has been counseled about diet changes, calorie restriction, and need to exercise. Pt will RTC in one month for weight check. MRI tomorrow at 7:15 - be there at 7 AM - nothing to eat or drink 2 hours before - if there is no one in registration then check in through the ER Colonoscopy/EGD with Dr. Denis on 03/01 - they will be getting in contact with you with details. . Diverticulitis - rx for antibiotic sent to pt's pharmacy - pt advised to avoid seeds, nuts, popcorn, or any other food which has been proven to upset the pt's stomach. Lesion on pancreas - MRI scheduled
--- OUTSIDE RECORDS SUMMARY | 2018-03-01 07:56 | XMS REPORT | CCD ---
Author Author Natalie Hays Organization [facility] Address [address] [place] [address] Phone Care Team Providers Care [employer] Piping Designer Name Role Phone PP Unavailable CCM Unavailable Summary Purpose Interface Exchange Insurance Providers Payer name Policy type / Coverage type Covered alliance party ID Effective Begin Date Effective End Date Blue Cross Blue [facility] Blue Cross/Blue Shield [id number] 2017 Unknown Family history Sister Diagnosis Age At Onset Diabetes mellitus Type 2 Unknown Father Diagnosis Age At Onset Colon cancer Unknown Hypertension Unknown Social History Social History Element Codes Description Effective Dates Marital status Unknown 06/18/[address]: 781109480 Never smoker 06/18/2017 Has the patient ever [...] Fill Instructions Cipro 500 mg tablet RxNorm: 185921 1 Tablet(s) PO BID 201702/12/2018 Active Flagyl 500 mg tablet RxNorm: 665450 1 Tablet(s) PO TID 201702/12/2018 Active Bystolic 5 mg tablet RxNorm: 629202 1/2 Tablet(s) PO daily 12/201704/25/2018 Active Bystolic 5 mg tablet RxNorm: 251649 1/2 Tablet(s) PO daily 12/201701/25/2018 Inactive Bystolic 5 mg tablet RxNorm: 073255 1/2 Tablet(s) PO daily 08/2017 No Stop Date Active Tamiflu 75 mg capsule RxNorm: 319136 1 Capsule(s) PO BID 201606/22/2017 Inactive ceftriaxone 500 mg solution for injection RxNorm: 9067905 Inj 06/18/2017 06/18/2017 Inactive prednisone 20 mg tablet RxNorm: 223110 2 Tablet(s) PO daily 06/22/2017 Inactive Kenalog 40 mg/mL suspension for injection RxNorm: 6008179 Milliliter(s) Inj 06/18/2017 06/18/2017 Inactive Medication Administered Medication Codes Instructions Start Date Status Kenalog 40 mg/mL suspension for injection RxNorm: 7913179 Milliliter 06/18/2017 No longer Active ceftriaxone 500 mg solution for injection RxNorm: 5956857 06/18/2017 No longer Active Immunizations No Immunization [...] (3rd IS) 1.83 uIU/mL 11/09/2017 Comp Metabolic Tin379 NA 138 mEq/L 11/09/2017 Comp Metabolic Bhy340 K 4.1 mEq/L 11/09/2017 Comp Metabolic Ixq535 CL 103 mEq/L 11/09/2017 Comp Metabolic Uvi381 CO2 27.0 mEq/L 11/09/2017 Comp Metabolic Sqr723 ANION GAP 12 11/09/2017 Comp Metabolic Dsr356 GLUCOSE 104 mg/dL 11/09/2017 Comp Metabolic Skm362 Creat 0.9 mg/dL 11/09/2017 Comp Metabolic Cgj360 eGFR 98 ml/min/1.73m2 11/09/2017 Comp Metabolic Mkl329 BUN 10 mg/dL 11/09/2017 Comp Metabolic Rnc347 B/C Ratio 11.5 Ratio 11/09/2017 Comp Metabolic Dvp375 CALCIUM 9.1 mg/dL 11/09/2017 Comp Metabolic Aej483 ALK PHOS 37 U/L 11/09/2017 Comp Metabolic Drk561 AST(SGOT) 42 U/L 11/09/2017 Comp Metabolic Aqt055 ALT(SGPT) 74 U/L 11/09/2017 Comp Metabolic Ayj980 BILI T 0.7 mg/dL 11/09/2017 Comp Metabolic Kdh587 ALBUMIN 4.4 g/dL 11/09/2017 Comp Metabolic Ybl097 TPRO 6.7 g/dL 11/09/2017 Comp Metabolic Bre721 GLOB 2.3 g/dL 11/09/2017 Comp Metabolic Mgv598 A/G Ratio 1.9 Ratio 11/09/2017 Comp Metabolic Wmv632 Osmo 275 mOsmo 11/09/2017 Lipid Ord30 CHOL [...] 30.5 pg 11/09/2017 Cbc With Differential Ord2 Gove% 7.9 % 11/09/2017 Cbc With Differential Ord2 [...] 2.04 K/ul 11/09/2017 Cbc With Differential Ord2 Gove ABS# 0.7 K/ul 11/09/2017 Cbc With Differential [...] Code : 8480-6 BMI: 39.6 Code : 88868-5 Heart Rate 1 : 78 bpm Height: 5'11" SpO2: 92% Weight: 284 lbs 11/20/2017 Blood Pressure 1: 134/90 Code : 8480-6 BMI: 39.6 Code : 50228-3 Heart Rate 1 : 102 bpm Height: 5'11 " SpO2: 98% Weight: 284 lbs 11/06/2017 Blood Pressure 1: 140/90 Code : 8480-6 BMI: 39.6 Code : 32370-0 Heart Rate 1 : 105 bpm Height: 5'11 " SpO2: 98% Weight: 284 lbs 06/18/2017 Blood Pressure 1: 130/88 Code : 8480-6 BMI: 37.4 Code : 50392-6 Heart Rate 1 : 87 bpm Height: [...] data Encounters Encounter Performer Location Codes Date 87040 EST. PATIENT, LEVEL III Diagnosis: Diverticulitis of large intestine without perforation or abscess without bleeding[ICD10: K57.32] Diagnosis: Disease of pancreas, unspecified[ICD10: K86.9] Natalie Robin MD, [facility] CPT-4: 22819 02/03/2018 43956 EST. PATIENT, LEVEL IV Diagnosis: Other fatigue[ICD10: R53.83] Diagnosis: Other obesity due to excess calories[ICD10: E66.09] Diagnosis: Essential (primary) hypertension[ICD10: I10] Natalie Robin MD, [facility] CPT-4: 43131 11/20/2017 56224 EST. PATIENT, LEVEL IV Diagnosis: Other fatigue[ICD10: R53.83] Diagnosis: Essential (primary) hypertension[ICD10: I10] Diagnosis: Other obesity due to excess calories[ICD10: E66.09] [facility] CPT-4: 67777 11/06/2017 OFFICE VISIT, NEW - LEVEL 3 Diagnosis: Acute laryngopharyngitis[ICD10: J06.0] Diagnosis: Acute bronchitis due to other specified organisms[ICD10: J20.8] Natalie Robin MD, [facility] CPT-4: 45986 06/18/2017 Plan of Care Planned Activity Notes Codes Status Date Care Plan: MRI ABDOMEN W/O & W/DYE Pending 02/04/2018 Care Plan: Referral Order SNOMED-CT : 272908531 Pending 02/04/2018 Visit Plan: Diverticulitis - rx for antibiotic sent to pt' s pharmacy - pt advised to avoid seeds, nuts, popcorn, or any other food which has been proven to upset the pt's stomach. Lesion on pancreas - MRI scheduled 02/03/2018 Appointment: Natalie Hays WPtel: [address] [place], [place] [phone] (15 min) Moderate 02/03/2018 Patient Education: Patient [...] month for weight check. 11/20/2017 [facility]ment: [facility] [phone] [facility] ([facility] min) Complex 11/20/2017 Patient Education: Patient [...] check. 11/06/2017 Appointment: [facility] [phone] [facility] (30 min) Complex 11/06/2017 Patient Education: Patient [...] acutely worsen. 06/18/2017 Appointment: Natalie Hays WPtel[facility] [facility] Patient 06/18/2017 Patient Education: Patient Medication [...]
--- OUTSIDE RECORDS SUMMARY | 2018-03-01 07:57 | XMS REPORT | Continuity of Care Document ---
Author Author [facility] Address Unknown Phone Unavailable Allergies [...] ABSENCE OF OTHER ORGANS 12/01/2017 LEANDRO DAVILA LINOLEUM INSTALLER Ot G47.33 OBSTRUCTIVE SLEEP APNEA (ADULT) (PEDIATR 12/16/2017 OLIVIA VASQUEZ LINOLEUM INSTALLER Ot R05 COUGH 12/16/2017 OLIVIA VASQUEZ LINOLEUM INSTALLER Ot R07.89 OTHER CHEST PAIN 12/21/2017 OLIVIA VASQUEZ LINOLEUM INSTALLER Ot R05 COUGH 12/21/2017 CHRISTINA, OLIVIA E LINOLEUM INSTALLER Ot R07.89 OTHER CHEST PAIN 12/30/2017 OLIVIA VASQUEZ LINOLEUM INSTALLER Ot R06.02 SHORTNESS OF BREATH 12/31/2017 OLIVIA VASQUEZ LINOLEUM INSTALLER Ot R05 COUGH 12/31/2017 OLIVIA VASQUEZ LINOLEUM INSTALLER Ot R07.89 OTHER CHEST PAIN 01/02/2018 YEIMY DAVILA LINOLEUM INSTALLER Ot G47.33 OBSTRUCTIVE SLEEP APNEA (ADULT) (PEDIATR 01/02/2018 YEIMY DAVILA R LINOLEUM INSTALLER Ot R06.83 SNORING 01/02/2018 GIOVANNIYEIMY R LINOLEUM INSTALLER Ot R09.02 HYPOXEMIA 01/02/2018 GIOVANNI YEIMY R LINOLEUM INSTALLER Ot R51 HEADACHE 01/02/2018 GIOVANNIYEIMY R LINOLEUM INSTALLER Ot R53.83 OTHER FATIGUE 01/05/2018 YEIMY DAVILA LINOLEUM INSTALLER Ot G47.33 OBSTRUCTIVE SLEEP APNEA (ADULT) (PEDIATR 01/05/2018 YEIMY DAVILA LINOLEUM INSTALLER Ot R06.83 SNORING 01/05/2018 YEIMY DAVILA LINOLEUM INSTALLER Ot R09.02 HYPOXEMIA 01/05/2018 YEIMY DAVILA LINOLEUM INSTALLER Ot R51 HEADACHE 01/05/2018 YEIMY DAVILA LINOLEUM INSTALLER Ot R53.83 OTHER FATIGUE 01/13/2018 OLIVIA VASQUEZ LINOLEUM INSTALLER Ot R06.02 SHORTNESS OF BREATH 02/10/2018 Ot K57.30 DVRTCLOS OF LG 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 OR AB 02/10/2018 Ot K86.89 OTHER SPECIFIED DISEASES OF PANCREAS 02/10/2018 Ot R10.32 LEFT LOWER QUADRANT PAIN 02/10/2018 Ot Z88.8 ALLERGY STATUS TO OT DRUG/MEDS/BIOL SUB 02/10/2018 Ot Z90.89 ACQUIRED ABSENCE OF OTHER ORGANS 02/10/2018 Ot K86.2 CYST OF PANCREAS Procedures Code [place] [address] ROUTINE VENIPUNCTURE 11/29/2013 84571 CBC 11/29/20137629289 GFR CALC (RESULT ONLY) 11/29/2013 73515 CMP 11/29/2013 Results Test Result Range CBC - 05/22/17 17:06 WHITE BLOOD CELL COUNT 8.4 Thousand/uL 3.8-10.8 RED BLOOD CELL COUNT 5.42 Million/uL 4.20-5.80 HEMOGLOBIN 16.6 g/dL 13.2-17.1 HEMATOCRIT 47.7 % 38.5-50.0 MCV 88.0 fL 80.0-100.0 MCH 30.6 pg 27.0-33.0 MCHC 34.8 g/dL 32.0-36.0 RDW 12.7 % 11.0-15.0 PLATELET COUNT 229 Thousand/uL 140-400 MPV 9.6 fL 7.5-12.5 ABSOLUTE NEUTROPHILS 7375 cells/uL 3491-4789 ABSOLUTE LYMPHOCYTES 529 cells/uL 850-3900 ABSOLUTE MONOCYTES [...] ANTIGEN, NEG FOR A ANTIGEN, BY [facility] Blood lactic acid measurement (moles/volume) - 06/09/17 [...] NRG Blood erythrocyte morphology finding identification NORMAL NR Comprehensive metabolic panel - 06/09/17 18:40 Serum [...] Status Pt. Type Provider Facility Loc./Unit Complaint [id number] 11/29/2013 08:18:00 11/29/2013 23:59:59 [facility] Outpatient JAMILAH FAJARDO APRN [id number] 07/22/2013 16:38:00 07/22/2013 23:59:59 [facility] Outpatient SCOTTY BIMALJAMILAH [id number] 06/25/2013 10:22:00 06/25/2013 23:59:59 [facility] Outpatient MANASA BIMALCONNIE [id number] 07/16/2012 11:27:00 07/16/2012 23:59:59 CLS Outpatient [id number] 06/16/2017 16:05:45 06/16/2017 23:59:59 CLS Outpatient [id number] 01/11/2018 09:32:00 01/11/2018 23:59:59 CLS Outpatient OLIVIA VASQUEZ APRN [facility] PULM RESTRICTIVE LUNG DISEASE [id number] 01/05/2018 14:56:00 01/05/2018 23:59:59 CLS Preadmit OLIVIA VASQUEZ APRN [facility] RAD RESTRICTIVE LUNG DISEASE,SOB,COUGH [id number] 01/01/2018 20:02:00 01/02/2018 06:00:00 DIS Outpatient YEIMY DAVILA APRN [facility] SLEEP OBSERVED APNEAS, SNORING [id number] 12/28/2017 08:20:00 12/28/2017 23:59:59 CLS Outpatient OLIVIA VASQUEZ APRN [facility] RT SHORT OF BREATH ON EXERTION [id number] 12/15/2017 14:48:00 12/15/2017 23:59:59 CLS Outpatient OLIVIA VASQUEZ APRN [facility] RAD SOB ON EXERTION [id number] 12/11/2017 07:38:00 12/11/2017 23:59:59 CLS Preadmit LUCAS PATTON MD [facility] CARD ANTERIOR CHEST WALL PAIN ,HTN,SOB ON EXERTION [id number] 11/30/2017 13:05:00 11/30/2017 13:19:00 DIS Outpatient LEANDRO DAVILA APRN [facility] SLEEP G47.33 LALA [id number] 06/09/2017 17:59:00 06/09/2017 20:47:00 DIS Emergency NOA PALMER MD [facility] ER FEVER/DRY HEAVING/COUGH [id number] 07/30/2016 12:43:00 07/30/2016 23:59:59 CLS Outpatient ABDI JOEL, LUCAS Serrano [facility] CARD ANTERIOR CHEST WALL PAIN [id number] 03/01/2018 09:15:00 PEN Preadmit FREDDIE JOEL, MATHEW Rodriguez [facility] ENDO SCREENING/FM HX COLON CA/EPIGASTRIC PAIN/ GERD [id number] 02/04/2018 07:01:00 Document Registration [id number] 01/31/2018 16:05:00 Document Registration [id number] 05/27/2012 20:45:00 Document Registration [id number] 05/22/2017 15:50:00 05/22/2017 23:59:59 CLS Outpatient MAKENZIE DURON [facility] [id number] 05/22/2017 15:50:00 Document Registration
[2018-03-01] MEDS ORDERED: MIDAZOLAM 2 MG/2 ML (VERSED) VIAL IVP ONE (08:00)
[2018-03-01] MEDS ORDERED: fentaNYL INJECTION 100 MCG/2 ML AMP IVP ONE (08:00)
[2018-03-01] MEDS ORDERED: HURRICAINE EXT TUBE (BENZOCAINE) XX PRN (08:00)
[2018-03-01 08:01] VITALS: BP 135/96
[2018-03-01] MEDS: NS IV 500 ML 500 ML IV PRN ×2 (08:05→09:50)
--- NOTE | 2018-03-01 09:04 | History & Physicial ---
History of Present Illness History of Present Illness Reason for visit/HPI to undergo an upper endoscopy to investigate symptoms of reflux and concomitant screening colonoscopy. Previous colonoscopy from 10 years ago was negative. Positive family history of colon cancer in his father. 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 Alcohol Use: Denies Use Recreational Drug Use: No Smoking Status: Never a Smoker 2nd Hand Smoke Exposure: No Recent Foreign Travel: No Contact w/other who traveled: No Recent Hopitalizations: No Recent Infectious Disease Expo: No Immunizations Up To Date Tetanus Booster (TDap): Unknown Seasonal Allergies Seasonal Allergies: No Surgeries Yes Tonsillectomy Respiratory No Currently Using CPAP: Yes Currently Using BIPAP: No Cardiovascular No Neurological No Reproductive System Hx Reproductive Disorders: No Sexually Transmitted Disease: No HIV/AIDS: No Genitourinary No Gastrointestinal No Gastroesophageal Reflux Musculoskeletal No Endocrine History of Endocrine Disorders: No Are Your Blood Sugars Over 250: No HEENT History of HEENT Disorders: No Loss of Vision: Denies Hearing Impairment: Denies Cancer No Psychosocial History of Psychiatric Problem: No Integumentary History of Skin or Integumenta: No Blood Transfusions History of Blood Disorders: No Family Medical History Family Hx: Colon cancer Review of Systems Constitutional: no symptoms reported EENTM: no symptoms reported Respiratory: no symptoms reported Cardiovascular: no symptoms reported Gastrointestinal: see HPI Genitourinary: no symptoms reported Musculoskeletal: no symptoms reported Skin: no symptoms reported Psychiatric/Neurological: No Symptoms Reported Physical Exam Vital Signs Vital Signs - First Documented 03/01/18 08:01 Temp 98.3 Pulse 72 Resp 18 B/P (MAP) 135/96 (109) Pulse Ox 96 O2 Delivery Room Air Capillary Refill : Height, Weight, BMI Height: 5'11.00" Weight: 280lbs. 0.0oz. 127.710366lq; 39.1 BMI Method:Stated General Appearance: No Apparent Distress Neck: Normal Inspection Respiratory: Lungs Clear Cardiovascular: Regular Rate, Rhythm Gastrointestinal: Non Tender, Soft Rectal: Deferred Extremity: Normal Inspection Neurologic/Psychiatric: Alert, Oriented x3 Skin: Warm/Dry Assessment/Plan Assessment and Plan gentleman with epigastric pain and symptoms of reflux disease. For concomitant screening colonoscopy. Discussed in detail Admission Diagnosis Admission Status: Other (Outpt Proc) MATHEW DENIS MD Mar 01, 2018 09:03
--- NOTE | 2018-03-01 09:04 | Conscious Sedation/ASA ---
Conscious Sedation Pre-Proced Time Reviewed: 08:54 ASA Class: 2 Airway Mallampati Classification: (bois forte appropriate class) I. II. III, IV Lungs Heart ASA score ASA 1: a normal healthy patient ASA 2: a patient with a mild systemic disease (mid diabetes, controlled hypertension, obesity ASA 3: a patient with a severe systemic disease that limits activity (angina , COPD, prior Myocardial infarction) ASA 4: a patient with an incapacitating disease that is a constant threat to life (CHF, renal failure) ASA 5: a moribund patient not expected to survive 24 hrs. (ruptured aneurysm) ASA 6: a declared brain patient whose organs are being harvested. For emergent operations, add the letter E after the classification Grade 2 Sedation Plan: Discussed options with patient/fam Note The patient is an appropriate candidate to undergo the planned procedure, sedation, and anesthesia. The patient immediately re-assessed prior to indication. MATHEW FRAZIER MD Mar 01, 2018 09:04
[2018-03-01] MEDS ORDERED: fentaNYL INJECTION 100 MCG/2 ML AMP ONE ×2 (09:06)
[2018-03-01] MEDS ORDERED: HURRICAINE EXT TUBE (BENZOCAINE) ONE (09:07)
[2018-03-01] MEDS ORDERED: MIDAZOLAM 2 MG/2 ML (VERSED) VIAL ONE ×6 (09:07)
[2018-03-01] MEDS ORDERED: NS IV 500 ML 500 ML ONE (09:40)
--- NOTE | 2018-03-01 09:57 | Endo Procedure Record ---
Endo Procedure Report Date of Procedure Last Colonoscopy: Yes Mar 01, 2018 Surgeon (s) MATHEW FRAZIER MD Post Procedure/Op Diagnosis EGD: Multiple antral erosions. Severe duodenitis Colonoscopy: 3 mm sessile polyp at the hepatic flexure Procedure Performed EGD with antral biopsy for H pylori. Colonoscopy to cecum Snare polypectomy Description of Procedure Anesthesia Type: Conscious Sedation Specimen(s) collected/removed polyp from hepatic flexure Description of the Procedure indication for the procedures: This gentleman came in for an endoscopic assessment of symptoms of reflux disease along with screening colonoscopy. He reported a positive family history of colon cancer in his father. Informed consent was obtained after reviewing the procedures in detail. Description of the procedures: EGD/antral biopsy: He was placed in left lateral decubitus position and his vital signs were monitored. Conscious sedation was achieved using Versed and fentanyl. The flexible gastroscope was introduced down the esophagus, past the stomach, into the proximal duodenum. Esophagus: Normal Stomach: Severe distal gastritis with 3, shallow erosions. Biopsy for H. pylori was obtained. Duodenum: Changes of severe duodenitis were noticed along the first part. He tolerated the procedure well and was turned around in preparation for colonoscopy. Impression: Symptoms of reflux disease. Distal gastritis and gastric erosions. Severe duodenitis. Enterobacter status pending. Colonoscopy/snare polypectomy: Digital rectal examination was unremarkable. The colonoscope was then introduced into the rectum and advanced with difficulty to the cecum. The scope was then withdrawn slowly and the mucosa examined in a systematic fashion. Findin mm sessile polyp at the hepatic flexure that was snared. Due to admixture with liquid stools, it could not be retrieved. However, his stools will be strained in an attempt to retrieve the polyp for histologic examination He tolerated the procedures well and was taken to the nursing area in a stable condition. Impression: Screening colonoscopy. Hepatic flexure polyp excised. Positive family history. Recommend repeating 2 years. Copy Copies To 1: SHAGUFTA RAMIREZ MD,MATHEW Rodriguez MD Mar 01, 2018 09:57
[2018-03-01] MEDS ORDERED: PANT40TA2 PO (09:58)
--- NOTE | 2018-03-01 09:59 | Discharge Inst-Simple/Standard ---
Discharge Inst-Standard Discharge Medications New, Converted or Re-Newed RX: RX on Chart Patient Instructions/Follow Up Plan of Care/Instructions/FU: repeat colonoscopy in 2 years. [place] nonsteroidals Activity as Tolerated: Yes Discharge Diet: No Restrictions MATHEW FRAZIER MD Mar 01, 2018 09:59
[2018-03-01 10:30] VITALS: BP 132/90
[2018-03-01 11:10] VITALS: BP 114/81
[2018-03-01 11:20] VITALS: BP 114/81
== END 2018-03-01 11:20 | disposition home or self-care (01) ==
LOC: ENDO 07:42
PROVIDERS: ATTEND Surgery
DX: Z12.11 Encounter for screening for malignant neoplasm of colon (principal); Z80.0 Family history of malignant neoplasm of digestive organs; K63.5 Polyp of colon; K29.70 Gastritis, unspecified, without bleeding; K25.9 Gastric ulcer, unspecified as acute or chronic, without hemorrhage or perforation; K29.80 Duodenitis without bleeding
CPT/HCPCS: 88305; 88342

== ENCOUNTER 2018-06-18 13:18 | Emergency (ER) | payer BC ==
[~2018-06-18] VITALS: Ht 180.3 cm; Wt 124.7 kg
[~2018-06-18 13:18] MED LIST changes: +PANT40TA2 PO
--- OUTSIDE RECORDS SUMMARY | 2018-06-18 13:24 | XMS REPORT | CCD ---
Author Author Natalie Hays Organization [facility] Address [address] [place] [address] Phone Care Team Providers Care Air Traffic Control Operator Name Role Phone PP Unavailable CCM Unavailable Summary Purpose Interface Exchange Insurance Providers Payer name Policy type / Coverage type Covered green party ID Effective Begin Date Effective End Date Blue Cross Blue [facility] Blue Cross/Blue Shield [id number] 2017 Unknown Family history Sister Diagnosis Age At Onset Diabetes mellitus Type 2 Unknown Father Diagnosis Age At Onset Colon cancer Unknown Hypertension Unknown Social History Social History Element Codes Description Effective Dates Marital status Unknown 06/18/[address]: 427888209 Never smoker 06/18/2017 Has the patient ever used illegal drugs? 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 03/18/2018 Active Disease of pancreas, unspecified ICD-9: 577.9 ICD-10: [...] Start Date Stop Date Status Fill Instructions Bystolic 5 mg tablet RxNorm: 706446 1/2 Tablet(s) PO daily 08/08/2018 Active Zorvolex 35 mg capsule RxNorm: 9439207 1 Capsule(s) PO TID No Stop Date Active Zorvolex 35 mg capsule RxNorm: 8929989 1 Capsule(s) PO TID 05/10/2018 Inactive Cipro 500 mg tablet RxNorm: 818432 1 Tablet(s) PO BID 201702/12/2018 Inactive Flagyl 500 mg tablet RxNorm: 166161 1 Tablet(s) PO TID 201702/12/2018 Inactive Bystolic 5 mg tablet RxNorm: 565609 1/2 Tablet(s) PO daily 12/201701/25/2018 Inactive Bystolic 5 mg tablet RxNorm: 020542 1/2 Tablet(s) PO daily 12/201704/25/2018 Inactive Bystolic 5 mg tablet RxNorm: 518535 1/2 Tablet(s) PO daily 08/2017 No Stop Date Active Tamiflu 75 mg capsule RxNorm: 654297 1 Capsule(s) PO BID 201606/22/2017 Inactive ceftriaxone 500 mg solution for injection RxNorm: 4837333 Inj 06/18/2017 06/18/2017 Inactive prednisone 20 mg tablet RxNorm: 412011 2 Tablet(s) PO daily 06/22/2017 Inactive Kenalog 40 mg/mL suspension for injection RxNorm: 7591918 Milliliter(s) Inj 06/18/2017 06/18/2017 Inactive Medication Administered Medication Codes Instructions Start Date Status Kenalog 40 mg/mL suspension for injection RxNorm: 5163909 Milliliter 06/18/2017 No longer Active ceftriaxone 500 mg solution for injection RxNorm: 9792711 06/18/2017 No longer Active Immunizations No Immunization data Assessments Condition Codes Effective Dates Plantar fascial fibromatosis ICD-10: M72.2 ICD-9: 728.71 03/18/2018 Disease of pancreas, unspecified ICD-10: K86.9 ICD-9: [...] Visit Reason For Visit Effective Dates Notes foot pain 03/18/2018 Hospital Follow Up 02/03/2018 fatigue 11/20/2017 fatigue 11/06/2017 cough 06/18/2017 Results Observation Observation Code Item Item Code Result Date Tsh Ord6 TSH (3rd IS) 1.83 uIU/mL 11/09/2017 Comp Metabolic Jpt261 NA 138 mEq/L 11/09/2017 Comp Metabolic Qck593 K 4.1 mEq/L 11/09/2017 Comp Metabolic Wtf430 CL 103 mEq/L 11/09/2017 Comp Metabolic Ocp369 CO2 27.0 mEq/L 11/09/2017 Comp Metabolic Awh339 ANION GAP 12 11/09/2017 Comp Metabolic Btl086 GLUCOSE 104 mg/dL 11/09/2017 Comp Metabolic Ais027 Creat 0.9 mg/dL 11/09/2017 Comp Metabolic Kkn540 eGFR 98 ml/min/1.73m2 11/09/2017 Comp Metabolic Gcg354 BUN 10 mg/dL 11/09/2017 Comp Metabolic Qya631 B/C Ratio 11.5 Ratio 11/09/2017 Comp Metabolic Npw593 CALCIUM 9.1 mg/dL 11/09/2017 Comp Metabolic Dct367 ALK PHOS 37 U/L 11/09/2017 Comp Metabolic Txg604 AST(SGOT) 42 U/L 11/09/2017 Comp Metabolic Prq486 ALT(SGPT) 74 U/L 11/09/2017 Comp Metabolic Anf593 BILI T 0.7 mg/dL 11/09/2017 Comp Metabolic Lxu776 ALBUMIN 4.4 g/dL 11/09/2017 Comp Metabolic Asy534 TPRO 6.7 g/dL 11/09/2017 Comp Metabolic Fqh318 GLOB 2.3 g/dL 11/09/2017 Comp Metabolic Qiu744 A/G Ratio 1.9 Ratio 11/09/2017 Comp Metabolic Xll181 Osmo 275 mOsmo 11/09/2017 Lipid Ord30 CHOL [...] 30.5 pg 11/09/2017 Cbc With Differential Ord2 [place]% 7.9 % 11/09/2017 Cbc With Differential Ord2 [...] 2.04 K/ul 11/09/2017 Cbc With Differential Ord2 [place] ABS# 0.7 K/ul 11/09/2017 Cbc With Differential Ord2 Eos ABS# 0.1 K/ul 11/09/2017 Cbc With Differential Ord2 Baso ABS# 0.0 K/ul 11/09/2017 Review of Systems System Result Effective Dates Constitutional No recent illness 2017 Constitutional No chills 03/18/2018 Constitutional No fever 03/18/2018 Eyes No eye erythema 03/18/2018 Ears/Nose/Throat/Neck No nasal discharge 03/18/2018 Cardiovascular No chest pain/pressure Cardiovascular No dyspnea 03/18/2018 Respiratory No cough 03/18/2018 Respiratory No dyspnea 03/18/2018 Musculoskeletal joint complaint 2017 Neurologic No alteration of consciousness 03/18/2018 Neurologic No mental status change 2017 Constitutional recent illness 02/03/2018 Constitutional No chills [...] Result Effective Dates Notes Full Exam - Orthopedics Constitutional general appearance Overall: well nourished 03/18/2018 None Full Exam - Orthopedics Constitutional general appearance Overall: well developed 03/18/2018 None Full Exam - Orthopedics Constitutional general appearance Overall: in no acute distress 03/18/2018 None Full Exam - Orthopedics Eyes conjunctiva/ eyelids Overall: conjunctiva clear 03/18/2018 None Full Exam - Orthopedics Eyes conjunctiva/ eyelids Overall: eyelids normal 03/18/2018 None Full Exam - Orthopedics Ears/Nose/Throat lips/teeth/gingiva Overall: benign lips 03/18/2018 None Full Exam - Orthopedics Ears/Nose/Throat oral cavity/pharynx/larynx Overall: oral mucosa clear 03/18/2018 None Full Exam - Orthopedics Respiratory respiratory effort/rhythm Overall: no retractions 03/18/2018 None Full Exam - Orthopedics Respiratory respiratory effort/rhythm Overall: normal rate 03/18/2018 None Full Exam - Orthopedics Psychiatric orientation/consciousness Overall: oriented to person, place and time 03/18/2018 None Full Exam - Orthopedics Psychiatric mood and affect Overall: normal mood and affect 03/18/2018 None Full Exam - Orthopedics Psychiatric appearance Overall: well-groomed, good eye contact 03/18/2018 None Full Exam - Orthopedics MS: Bilateral Lower Extremities insp & palp - LE Rearfoot: tenderness of Plantar fascial ligament origin 03/18/2018 None Full Exam - General 1994 Constitutional [...] CPT-4: J0696 06/18/2017 Vital Signs Date Vital 03/18/2018 Blood Pressure 1: 128/74 Code : 8480-6 BMI: 39.5 Code : 65693-5 Heart Rate 1 : 76 bpm Height: 5'11" SpO2: 98% Weight: 283 lbs 02/03/2018 Blood Pressure 1: 116/82 Code : 8480-6 BMI: 39.6 Code : 93309-1 Heart Rate 1 : 78 bpm Height: 5'11" SpO2: 92% Weight: 284 lbs 11/20/2017 Blood Pressure 1: 134/90 Code : 8480-6 BMI: 39.6 Code : 95821-0 Heart Rate 1 : 102 bpm Height: 5'11 " SpO2: 98% Weight: 284 lbs 11/06/2017 Blood Pressure 1: 140/90 Code : 8480-6 BMI: 39.6 Code : 21004-8 Heart Rate 1 : 105 bpm Height: 5'11 " SpO2: 98% Weight: 284 lbs 06/18/2017 Blood Pressure 1: 130/88 Code : 8480-6 BMI: 37.4 Code : 31701-8 Heart Rate 1 : 87 bpm Height: 5'11" SpO2: 97% Weight: 268 lbs Functional Status No Functional Status data History of Present Illness Symptom Name Status Result Effective Date Notes foot pain Location on the left 03/18/2018 None foot pain Location on the right 03/18/2018 None foot pain Quality dull pain 03/18/2018 None foot pain Quality sharp pain 03/18/2018 None foot pain Quality numbness 03/18/2018 None foot pain Quality tingling 03/18/2018 None foot pain Quality constant 03/18/2018 None foot pain Onset and Resolution gradual in onset 03/18/2018 None foot pain Onset of Symptom 9 months ago 03/18/2018 None foot pain Frequency of Episodes daily 03/18/2018 None foot pain Frequency of Episodes increasing 03/18/2018 None Hospital Follow Up _ pain 02/03/2018 None [...] data Encounters Encounter Performer Location Codes Date EST. PATIENT, LEVEL III Diagnosis: Plantar fascial fibromatosis[ICD10: M72.2] Natalie Robin MD, [facility] CPT-4: 68301 03/18/2018 [id number] EST. PATIENT, LEVEL III Diagnosis: Diverticulitis of large intestine without perforation or abscess without bleeding[ICD10: K57.32] Diagnosis: Disease of pancreas, unspecified[ICD10: K86.9] Natalie Robin MD, [facility] CPT-4: 89519 02/03/2018 52809 EST. PATIENT, LEVEL IV Diagnosis: Other fatigue[ICD10: R53.83] Diagnosis: Other obesity due to excess calories[ICD10: E66.09] Diagnosis: Essential (primary) hypertension[ICD10: I10] Natalie Robin MD, [facility] CPT-4: 56003 11/20/2017 19146 EST. PATIENT, LEVEL IV Diagnosis: Other fatigue[ICD10: R53.83] Diagnosis: Essential (primary) hypertension[ICD10: I10] Diagnosis: Other obesity due to excess calories[ICD10: E66.09] Natalie Robin MD, [facility] CPT-4: 02891 11/06/2017 OFFICE VISIT, NEW - LEVEL 3 Diagnosis: Acute laryngopharyngitis[ICD10: J06.0] Diagnosis: Acute bronchitis due to other specified organisms[ICD10: J20.8] [facility] CPT-4: 63502 06/18/2017 Plan of Care Planned Activity Notes Codes Status Date Visit Plan: Plantar fasciitis- pt was educated that this is an inflammatory process, need to stretch the foot and reduce inflammation by using a frozen bottle of water or a tennis ball on the bottom of the foot at least three times a day until the pain is improved. 03/18/2018 App[facility]ment: [facility] [phone] [facility] [place] ([facility] min[facility] Complex 03/18/2018 Patient Education: Patient Medication Summary Completed 03/18/2018 Referral: Tay Denis Referral Appointment Requested 03/01/2018 Care Plan: MRI ABDOMEN W/O & W/DYE Pending 02/04/2018 Care Plan: Referral Order SNOMED-CT : [id number] Pending 02/04/2018 Visit Plan: Diverticulitis - rx for antibiotic sent to pt' s pharmacy - pt advised to avoid seeds, nuts, popcorn, or any other food which has been proven to upset the pt's stomach. Lesion on pancreas - MRI scheduled 02/03/2018 Appointment: [facility] [phone] [facility] [place] (15 min) Moderate 02/03/2018 Patient Education: Patient [...] weight check. 11/20/2017 Appointment: [facility] [phone] [facility] (30 min) Complex 11/20/2017 Patient Education: [...] check. 11/06/2017 Appointment: Natalie Hays [facility] [phone] [facility] (30 min) Complex 11/06/2017 Patient Education: [...] acutely worsen. 06/18/2017 Appointment: Natalie Hays WPtel[facility] New Patient 06/18/2017 Patient Education: Patient [...] improved, or if symptoms acutely worsen. . Plantar fasciitis- pt was educated that this is an inflammatory process, need to stretch the foot and reduce inflammation by using a frozen bottle of water or a tennis ball on the bottom of the foot at least three times a day until the pain is improved. . Hypertension - uncontrolled - the patient's [...]
--- OUTSIDE RECORDS SUMMARY | 2018-06-18 13:25 | XMS REPORT | Continuity of Care Document ---
Author Author [facility] Address Unknown Phone Unavailable Allergies Active Description Code Type Severity Reaction Onset Reported/Identified Relationship to Patient Clinical Status Yes MUSCLE RELAXERS MUSCLE RELAXERS Unknown N/A 12/28/2017 Medications There is no data. Problems Date Dx Coded Attending Type Code Diagnosis Diagnosed By 05/27/2012 Ot 784.0 HEADACHE 07/16/2012 079.99 VIRAL SYNDROME 07/16/2012 784.91 POSTNASAL DRIP 07/16/2012 CONNIE GOEL APRN 079.99 VIRAL SYNDROME 07/16/2012 CONNIE OGEL APRN 784.91 POSTNASAL DRIP 07/16/2012 SCOTTY WALLIS, [...] MDUS J Ot R50.9 FEVER, UNSPECIFIED 06/09/2017 ETSELA JOEL, NOA J Ot Z90.89 ACQUIRED ABSENCE OF OTHER ORGANS 06/11/2017 NOA PALMER MD J Ot H66.92 OTITIS MEDIA, UNSPECIFIED, LEFT EAR 06/11/2017 SONIA PALMER MDUS J Ot J11.1 FLU DUE TO UNIDENTIFIED INFLUENZA VIRUS 06/11/2017 SONIA PALMER MDUS J Ot R50.9 FEVER, UNSPECIFIED 06/11/2017 SONIA PALMER MDUS J Ot Z90.89 ACQUIRED ABSENCE OF OTHER ORGANS 11/30/2017 LEANDRO DAVILA COMPLETION MANAGER Ot G47.33 OBSTRUCTIVE SLEEP APNEA (ADULT) (PEDIATR 12/01/2017 LEANDRO DAVILA COMPLETION MANAGER Ot G47.33 OBSTRUCTIVE SLEEP APNEA (ADULT) (PEDIATR 12/16/2017 OLIVIA VASQUEZ COMPLETION MANAGER Ot R05 COUGH 12/16/2017 OLIVIA VASQUEZ COMPLETION MANAGER Ot R07.89 OTHER CHEST PAIN 12/21/2017 OLIVIA VASQUEZ COMPLETION MANAGER Ot R05 COUGH 12/21/2017 OLIVIA VASQUEZ E COMPLETION MANAGER Ot R07.89 OTHER CHEST PAIN 12/30/2017 OLIVIA VASQUEZ COMPLETION MANAGER Ot R06.02 SHORTNESS OF BREATH 12/31/2017 RENEA VASQUEZINE E COMPLETION MANAGER Ot R05 COUGH 12/31/2017 RENEA VASQUEZINE E COMPLETION MANAGER Ot R07.89 OTHER CHEST PAIN 01/02/2018 GIOVANNIYEIMY R COMPLETION MANAGER Ot G47.33 OBSTRUCTIVE SLEEP APNEA (ADULT) (PEDIATR 01/02/2018 YEIMY DAVILA R COMPLETION MANAGER Ot R06.83 SNORING 01/02/2018 GIOVANNIYUMIKON R COMPLETION MANAGER Ot R09.02 HYPOXEMIA 01/02/2018 GIOVANNI YEIMY R COMPLETION MANAGER Ot R51 HEADACHE 01/02/2018 GIOVANNIYEIMY R COMPLETION MANAGER Ot R53.83 OTHER FATIGUE 01/05/2018 GIOVANNIYEIMY R COMPLETION MANAGER Ot G47.33 OBSTRUCTIVE SLEEP APNEA (ADULT) (PEDIATR 01/05/2018 YEIMY DAVILA R COMPLETION MANAGER Ot R06.83 SNORING 01/05/2018 YEIMY DAVILA R COMPLETION MANAGER Ot R09.02 HYPOXEMIA 01/05/2018 YEIMY DAVILA R COMPLETION MANAGER Ot R51 HEADACHE 01/05/2018 GIOVANNIYEIMY R COMPLETION MANAGER Ot R53.83 OTHER FATIGUE 01/13/2018 OLIVIA VASQUEZ E COMPLETION MANAGER Ot R06.02 SHORTNESS OF BREATH 01/19/2018 OLIVIA VASQUEZ COMPLETION MANAGER Ot J98.4 OTHER DISORDERS OF LUNG 01/31/2018 Ot K57.30 DVRTCLOS OF LG 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 OR AB 01/31/2018 Ot K86.89 OTHER SPECIFIED DISEASES OF PANCREAS 01/31/2018 Ot R10.32 LEFT LOWER QUADRANT PAIN 01/31/2018 Ot Z88.8 ALLERGY STATUS TO OTH DRUG/MEDS/BIOL SUB 01/31/2018 Ot Z90.89 ACQUIRED ABSENCE OF OTHER ORGANS 02/10/2018 Ot K57.30 DVRTCLOS OF LG 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 OR AB 02/10/2018 Ot K86.89 OTHER SPECIFIED DISEASES OF PANCREAS 02/10/2018 Ot R10.32 LEFT LOWER QUADRANT PAIN 02/10/2018 Ot Z88.8 ALLERGY STATUS TO OTH DRUG/MEDS/BIOL SUB 02/10/2018 Ot Z90.89 ACQUIRED ABSENCE OF OTHER ORGANS 02/10/2018 Ot K86.2 CYST OF PANCREAS 02/19/2018 Ot K86.2 CYST OF PANCREAS 02/26/2018 OLIVIA VASQUEZ APRN Ot E66.9 OBESITY, UNSPECIFIED 02/26/2018 OLIVIA VASQUEZ COMPLETION MANAGER Ot J30.2 OTHER SEASONAL ALLERGIC RHINITIS 02/26/2018 OLIVIA VASQUEZ COMPLETION MANAGER Ot J98.4 OTHER DISORDERS OF LUNG 02/26/2018 OLIVIA VASQUEZ COMPLETION MANAGER Ot K76.0 FATTY (CHANGE OF) LIVER, NOT ELSEWHERE C 02/26/2018 FREDDIE JOEL, MATHEW Rodriguez Ot Z01.818 ENCOUNTER FOR OTHER PREPROCEDURAL EXAMIN 02/26/2018 MATHEW FRAZIER MD Ot Z01.818 ENCOUNTER FOR OTHER PREPROCEDURAL EXAMIN 03/01/2018 MATHEW FRAZIER MD Ot K25.9 GASTRIC ULCER, UNSP ACUTE OR CHRONIC, 03/01/2018 MATHEW FRAZIER MD Ot K29.70 GASTRITIS, UNSPECIFIED, WITHOUT BLEEDING 03/01/2018 MATHEW FRAZIER MD Ot K29.80 DUODENITIS WITHOUT BLEEDING 03/01/2018 MATHEW FRAZIER MD Ot K63.5 POLYP OF COLON 03/01/2018 MATHEW FRAZIER MD Ot Z12.11 ENCOUNTER FOR SCREENING FOR MALIGNANT NE 03/01/2018 MATHEW FRAZIER MD Ot Z80.0 FAMILY HISTORY OF MALIGNANT NEOPLASM OF 03/01/2018 MATHEW FRAZIER MD Ot Z01.818 ENCOUNTER FOR OTHER PREPROCEDURAL EXAMIN 03/02/2018 MATHEW FRAZIER MD Ot K25.9 GASTRIC ULCER, UNSP ACUTE OR CHRONIC, 03/02/2018 MATHEW FRAZIER MD Ot K29.70 GASTRITIS, UNSPECIFIED, WITHOUT BLEEDING 03/02/2018 MATHEW FRAZIER MD Ot K29.80 DUODENITIS WITHOUT BLEEDING 03/02/2018 MATHEW FRAZIER MD Ot K63.5 POLYP OF COLON 03/02/2018 MATHEW FRAZIER MD Ot Z12.11 ENCOUNTER FOR SCREENING FOR MALIGNANT NE 03/02/2018 MATHEW FRAZIER MD Ot Z80.0 FAMILY HISTORY OF MALIGNANT NEOPLASM OF 05/04/2018 LUCAS PATTON MD Ot E66.9 OBESITY, UNSPECIFIED 05/04/2018 LUCAS PATTON MD Ot I10 ESSENTIAL (PRIMARY) HYPERTENSION 05/04/2018 LUCAS PATTON MD Ot R06.02 SHORTNESS OF BREATH 05/04/2018 LUCAS PATTON MD Ot R07.89 OTHER CHEST PAIN 05/04/2018 LUCAS PATTON MD Ot E66.9 OBESITY, UNSPECIFIED 05/04/2018 LUCAS PATTON MD Ot G47.30 SLEEP APNEA, UNSPECIFIED 05/04/2018 LUCAS PATTON MD Ot I10 ESSENTIAL (PRIMARY) HYPERTENSION 05/04/2018 LUCAS PATTON MD Ot R06.02 SHORTNESS OF BREATH 05/04/2018 LUCAS PATTON MD Ot R07.89 OTHER CHEST PAIN 05/04/2018 OLIVIA VASQUEZ APRN Ot R06.02 SHORTNESS OF BREATH 05/04/2018 OLIVIA VASQUEZ APRN Ot R05 COUGH 05/04/2018 OLIVIA VASQUEZ APRN Ot R07.89 OTHER CHEST PAIN 05/04/2018 OLIVIA VASQUEZ COMPLETION MANAGER Ot E66.9 OBESITY, UNSPECIFIED 05/04/2018 OLIVIA VASQUEZ APRN Ot J30.2 OTHER SEASONAL ALLERGIC RHINITIS 05/04/2018 OLIVIA VASQUEZ APRN Ot J98.4 OTHER DISORDERS OF LUNG 05/04/2018 OLIVIA VASQUEZ APRN Ot K76.0 FATTY (CHANGE OF) LIVER, NOT ELSEWHERE C 05/04/2018 Ot K86.2 CYST OF PANCREAS 05/04/2018 OLIVIA VASQUEZ APRN Ot J98.4 OTHER DISORDERS OF LUNG 05/11/2018 OLIVIA VASQUEZ APRN Ot R06.02 SHORTNESS OF BREATH Procedures Code Description [place] [address] ROUTINE VENIPUNCTURE 11/29/2013 21417 CBC 11/29/2013 [id number] GFR CALC (RESULT ONLY) 11/29/2013 88380 CMP 11/29/2013 Results Test Result Range CBC - 05/22/17 17:06 WHITE BLOOD CELL COUNT 8.4 Thousand/uL 3.8-10.8 RED BLOOD CELL COUNT 5.42 Million/uL 4.20-5.80 HEMOGLOBIN 16.6 g/dL 13.2-17.1 HEMATOCRIT 47.7 % 38.5-50.0 MCV 88.0 fL 80.0-100.0 MCH 30.6 pg 27.0-33.0 MCHC 34.8 g/dL 32.0-36.0 RDW 12.7 % 11.0-15.0 PLATELET COUNT 229 Thousand/uL 140-400 MPV 9.6 fL 7.5-12.5 ABSOLUTE NEUTROPHILS 7375 cells/uL 4023-3571 ABSOLUTE LYMPHOCYTES 529 cells/uL 850-3900 ABSOLUTE MONOCYTES [...] ANTIGEN, NEG FOR A ANTIGEN, BY [place] [facility] Blood lactic acid measurement (moles/volume) - 06/09/17 [...] Status Pt. Type Provider Facility Loc./Unit Complaint [id number] 11/29/2013 08:18:00 11/29/2013 23:59:[address] [facility] Outpatient JAMILAH FAJARDO APRN [id number] 07/22/2013 16:38:00 07/22/2013 23:59:59 [facility] Outpatient SCOTTY WALLIS JAMILAH Camilo [id number] 06/25/2013 10:22:00 06/25/2013 23:59:59 [facility] Outpatient CONNIE GOEL APRN [id number] 07/16/2012 11:27:00 07/16/2012 23:59:59 CLS Outpatient [id number] 06/16/2017 16:05:45 06/16/2017 23:59:59 CLS Outpatient [id number] 03/22/2018 00:22:00 03/22/2018 23:59:59 CLS Preadmit OLIVIA VASQUEZ APRN [facility] PUL RESTRICTIVE LUNG DISEASE [id number] 03/01/2018 07:42:00 03/01/2018 11:20:00 DIS Outpatient MATHEW FRAZIER MD [facility] ENDO SCREENING/FM HX COLON CA/EPIGASTRIC PAIN/GERD [id number] 02/26/2018 11:48:00 02/26/2018 12:15:00 DIS Outpatient MATHEW FRAZIER MD [facility] PREOP COLONOSCOPY/EGD [id number] 01/11/2018 09:32:00 01/19/2018 00:01:00 DIS Outpatient OLIVIA VASQUEZ APRN [facility] PUL RESTRICTIVE LUNG DISEASE [id number] 01/05/2018 14:56:00 01/05/2018 23:59:59 CLS Outpatient OLIVIA VASQUEZ APRN [facility] RAD RESTRICTIVE LUNG DISEASE,SOB,COUGH [id number] 01/01/2018 20:02:00 01/02/2018 06:00:00 DIS Outpatient YEIMY DAVILA APRN [facility] SLEEP OBSERVED APNEAS, SNORING [id number] 12/28/2017 08:20:00 12/28/2017 23:59:59 CLS Outpatient OLIVIA VASQUEZ APRN [facility] RT SHORT OF BREATH ON EXERTION [id number] 12/15/2017 14:48:00 12/15/2017 23:59:59 CLS Outpatient OLIVIA VASQUEZ APRN [facility] RAD SOB ON EXERTION [id number] 12/11/2017 07:38:00 12/11/2017 23:59:59 CLS Outpatient LUCAS PATTON MD [facility] CARD ANTERIOR CHEST WALL PAIN ,HTN,SOB ON EXERTION [id number] 11/30/2017 13:05:00 11/30/2017 13:19:00 DIS Outpatient LEANDRO DAVILA APRN [facility] SLEEP G47.33 LALA [id number] 06/09/2017 17:59:00 06/09/2017 20:47:00 DIS Emergency NOA PALMER MD [facility] ER FEVER/DRY HEAVING/COUGH [id number] 07/30/2016 12:43:00 07/30/2016 23:59:59 CLS Outpatient LUCAS PATTON MD [facility] CARD ANTERIOR CHEST WALL PAIN [id number] 02/04/2018 07:01:00 Document Registration [id number] 01/31/2018 16:05:00 Document Registration [id number] 05/27/2012 20:45:00 Document Registration [id number] 05/22/2017 15:50:00 05/22/2017 23:59:59 CLS [facility] [id number] 05/22/2017 15:50:00 Document Registration
--- NOTE | 2018-06-18 14:07 | ED GU-Male ---
General Chief Complaint: General Problems/Pain Stated Complaint: CALF PAIN;LOWER BACK AND ABD PAIN Nursing Triage Note: pt ambulated to room 4 with complaint of left testicle pain that radiates to his left lower back. states he was walking at work and suddenly felt that someone had hit him in the groin. was instructed by pcp to come to er. Source: patient Exam Limitations: no limitations History of Present Illness Date Seen by Provider: Jun 18, 2018 Time Seen by Provider: 14:05 Initial Comments To ER with sudden onset of intense left testicular pain about an hour ago while at work. The pain then moved to his left flank/low back. Denies nausea or vomiting. His pain is still present but significantly improved on the way here despite no intervention. No history of this. Timing/Duration: just prior to arrival Severity/Quality: severe Location: scrotal Radiation: left flank Activities at Onset: none Prior Genitourinary Problems: none Associated Symptoms: denies symptoms; No abdominal pain, No dysuria, No fever/ chills Allergies and Home Medications Allergies Uncoded Allergies: MUSCLE RELAXERS (Allergy, Unknown, 12/28/17) Home Medications Nebivolol HCl 2.5 Mg Tablet, 2.5 MG PO DAILY, (Reported) Pantoprazole Sodium 40 Mg Tablet.dr, 40 MG PO DAILY Prescribed by: MATHEW FRAZIER on 03/01/18 0949 Patient Home Medication List Home Medication List Reviewed: Yes Review of Systems Review of Systems Constitutional: see HPI; No chills, No fever EENTM: see HPI Respiratory: no symptoms reported Cardiovascular: no symptoms reported Genitourinary: see HPI, other (left testicular pain) Musculoskeletal: no symptoms reported Skin: no symptoms reported Psychiatric/Neurological: No Symptoms Reported Endocrine: No Symptoms Reported Hematologic/Lymphatic: No Symptoms Reported Past Ifulcri-Gpeiss-Ulsvbp Hx Patient Social History Alcohol Use: Denies Use Recreational Drug Use: No Smoking Status: Never a Smoker 2nd Hand Smoke Exposure: No Recent Foreign Travel: No Contact w/Someone Who Travel: No Recent Infectious Disease Expo: No Recent Hopitalizations: No Immunizations Up To Date Tetanus Booster (TDap): Unknown Seasonal Allergies Seasonal Allergies: No Past Medical History Surgeries: Yes Tonsillectomy Respiratory: Yes Sleep Apnea Currently Using CPAP: Yes Currently Using BIPAP: No Cardiac: Yes Hypertension Neurological: No Reproductive Disorders: No Sexually Transmitted Disease: No HIV/AIDS: No Genitourinary: No Gastrointestinal: Yes Gastroesophageal Reflux Musculoskeletal: No Endocrine: No HEENT: No Loss of Vision: Denies Hearing Impairment: Denies Cancer: No Psychosocial: No Integumentary: No Blood Disorders: No Family Medical History Colon cancer Physical Exam Vital Signs Vital Signs - First Documented 06/18/18 13:28 Temp 98.1 Pulse 68 Resp 20 B/P (MAP) 129/85 (100) Pulse Ox 99 O2 Delivery Room Air Capillary Refill : Less Than 3 Seconds Height, Weight, BMI Height: 5'11.00" Weight: 275lbs. 0.0oz. 124.113410pq; 39.1 BMI Method:Stated General Appearance: WD/WN, no apparent distress HEENT: PERRL/EOMI, normal ENT inspection Neck: non-tender, full range of motion Respiratory: no respiratory distress, no accessory muscle use Gastrointestinal: normal bowel sounds, non tender, soft Neurologic/Psychiatric: alert, normal mood/affect, oriented x 3 Skin: normal color, warm/dry Progress/Results/Core Measures Suspected Sepsis Recent Fever Within 48 Hours: No Infection Criteria Present: None New/Unexplained Altered Menta: No Sepsis Screen: No Definite Risk SIRS Temperature:98.1 Pulse: 68 Respiratory Rate: 20 Blood Pressure 129 /85 Mean: 100 Results/Orders My Orders Orders - LIBBY KENNY APRN Ua Culture If Indicated (06/18/18 13:52) Us Scrotum (Testicle) [id number] (06/18/18 13:52) Ceftriaxone For Im Use (Rocephin For Im (06/18/18 15:30) Vital Signs/I&O 06/18/18 13:28 Temp 98.1 Pulse 68 Resp 20 B/P (MAP) 129/85 (100) Pulse Ox 99 O2 Delivery Room Air Capillary Refill : Less Than 3 Seconds Blood Pressure Mean: 100 Departure Impression Primary Impression: Epididymitis Disposition: 01 HOME, SELF-CARE Condition: Stable Departure-Patient Inst. Decision time for Depature: 15:27 Referrals: SHAGUFTA RAMIREZ MD (PCP/Family) Primary Care Physician Patient Instructions: Epididymitis Add. Discharge Instructions: 1. Elevate the scrotum wearing tighter fitting underwear. If you're sitting down , sit on an ice pack as well with the pain. Pain medication as needed for pain control but beware they can be constipating so if you take the pain medication U should also take an ijgs-cjd-abjfcaf stool softener. Take the antibiotics twice daily as directed. Follow-up with your doctor next week for reevaluation. All discharge instructions reviewed with patient and/or family. Voiced understanding. Scripts Hydrocodone/Acetaminophen ([place] 5-325 Tablet) 1 Each Tablet 1 EACH PO Q6H PRN for PAIN-MODERATE MDD 10, #10 TAB Prov: LIBBY KENNY APRN 06/18/18 Sulfamethoxazole/Trimethoprim (Bactrim Ds Tablet) 1 Each Tablet 1 EACH PO BID, #20 TAB Prov: LIBBY KENNY APRN 06/18/18 Copy Copies To 1: SHAGUFTA RAMIREZ MD, PETER J APRN Jun 18, 2018 14:07
[2018-06-18] MEDS ORDERED: SULF1TAB35 PO (15:28)
[2018-06-18] MEDS ORDERED: HYDR-4226 PO (15:28)
[2018-06-18] MEDS ORDERED: cefTRIAXone FOR IV USE 1,000 MG in NS (IVPB) 50 ML IV ONE (15:30)
[2018-06-18] MEDS ORDERED: cefTRIAXone 1,000 MG/2.86 ml vial (IM ONLY) IM SCH (15:30)
[2018-06-18 16:10] LABS: BILIRUBIN,URINE NEGATIVE (NEGATIVE); CLARITY,URINE SLIGHTLY CLOUDY; COLOR,URINE YELLOW; GLUCOSE, URINE (UA) NEGATIVE (NEGATIVE); KETONES,URINE NEGATIVE (NEGATIVE); LEUKOCYTE ESTERASE ,URINE 1+ (NEGATIVE); NITRITE,URINE NEGATIVE (NEGATIVE); PH,URINE 6 (5-9); PROTEIN,URINE 2+ (NEGATIVE); UROBILINOGEN,URINE NORMAL (NORMAL)
[2018-06-18 16:15] LABS: BACTERIA,URINE NEGATIVE /HPF; RBC,URINE 50-100 /HPF; WBC,URINE 0-2 /HPF
[2018-06-18 16:18] VITALS: BP 125/84
--- NOTE | 2018-06-18 20:52 | Diagnostic Imaging Report ---
EXAM: TESTICULAR/SCROTUM ULTRASOUND DATE: June 18, 2018. COMPARISON: None. INDICATION: 52-year-old male, left testicle pain. PROCEDURE: Two-dimensional grayscale , spectral Doppler and color Doppler ultrasound examination of the testes is performed. FINDINGS: Right testicle. The right testicle has normal contour and is without mass. There is normal blood flow to the right testicle. The right testicle measures 4.2 cm x 2.5 cm x 3.4 cm. Left testicle: The left testicle has normal contour and is without mass. There is normal blood flow to the left testicle. The left testicle measures 3.9 cm x 2.4 cm x 3.2 cm. There is an anechoic lesion in the right epididymis measuring 9 x 7 x 8mm in size without internal blood flow compatible with epididymal head cyst or spermatocele. There is a right-sided varicocele. There is a small left hydrocele. Left epididymis appears hypervascular suggesting epididymitis. IMPRESSION: 1. Hypervascular left epididymis suggesting epididymitis. No evidence of orchitis. 2. No evidence of testicular torsion. 3. No intratesticular mass. 4. Benign right epididymal head cyst or spermatocele. 5. Right-sided varicocele. 6. Small left hydrocele. Dictated by: Dictated on workstation # [id number]
== END 2018-06-18 16:18 | disposition home or self-care (01) ==
LOC: EDUNIT# 13:18 → ER 13:19
DX: N45.1 Epididymitis (principal); G47.30 Sleep apnea, unspecified; I10 Essential (primary) hypertension; K21.9 Gastro-esophageal reflux disease without esophagitis; Z80.0 Family history of malignant neoplasm of digestive organs; Z88.8 Allergy status to other drugs, medicaments and biological substances; Z90.89 Acquired absence of other organs
CPT/HCPCS: 76870; 81000

== ENCOUNTER → 2018-07-09 | Outpatient (CLI) | payer BC ==
[~2018-07-09] MED LIST changes: +CATHETER FLUSH 10 ML SYR IV PRN; +IOHEXOL 350 MG/ML 100 ML (OMNIPAQUE 350) VIAL IV ONE; +NS 100 ML (IVPB) BAG IV ONE; +RECEIVED CONTRAST (Hold Metformin) IV SCH; +SULF1TAB35 PO
[2018-07-09 12:52] LABS: ALANINE AMINOTRANSFERASE 50 U/L (0-55); ALBUMIN 4.4 GM/DL (3.2-4.5); ALKALINE PHOSPHATASE 43 U/L (40-136); BILIRUBIN,TOTAL 0.8 MG/DL (0.1-1.0); BUN/CREATININE RATIO 13; CALCIUM 9.9 MG/DL (8.5-10.1); CARBON DIOXIDE 25 MMOL/L (21-32); CHLORIDE 106 MMOL/L (98-107); CREATININE SERUM 1.23 MG/DL (0.60-1.30); GFR ESTIMATED > 60; GLUCOSE 95 MG/DL (70-105); POTASSIUM 4.1 MMOL/L (3.6-5.0); SODIUM 139 MMOL/L (135-145); TOTAL PROTEIN 7.4 GM/DL (6.4-8.2)
--- NOTE | 2018-07-09 14:11 | Diagnostic Imaging Report ---
PROCEDURE: CT abdomen with contrast only. TECHNIQUE: Multiple contiguous axial images were obtained through the abdomen after the administration of intravenous contrast. INDICATION: Pancreatic cyst. Study is performed for followup. Correlation is made with prior CT from 01/31/2018. The lung bases are clear. The liver and gallbladder remain unremarkable. Cystic lesion in body of the pancreas appear stable at 15 mm. No pancreatic ductal dilatation is seen. No other pancreatic lesions are seen. The spleen is unremarkable. No adrenal mass is seen. The kidneys are unremarkable. Aorta is not aneurysmal. No central, retroperitoneal or mesenteric lymphadenopathy is seen. The visualized bowel loops are normal caliber. There is no ascites. IMPRESSION: Stable pancreatic body cystic lesion when compared with exam from 01/31/2018. Continued CT followup is recommended to show continued stability. Dictated by: Dictated on workstation # [id number]
== END ==
LOC: RAD 12:15
PROVIDERS: ATTEND Nurse Practitioner Family
DX: K86.2 Cyst of pancreas (principal)
CPT/HCPCS: 36415; 74160; 80053

== ENCOUNTER 2018-08-14 22:17 | Emergency (ER) | payer BC ==
[~2018-08-14] VITALS: Ht 182.9 cm; Wt 127.0 kg
[~2018-08-14 22:17] MED LIST changes: -CATHETER FLUSH 10 ML SYR IV PRN; -IOHEXOL 350 MG/ML 100 ML (OMNIPAQUE 350) VIAL IV ONE; -NS 100 ML (IVPB) BAG IV ONE; -RECEIVED CONTRAST (Hold Metformin) IV SCH
--- NOTE | 2018-08-14 22:39 | NUR ---
Attempt to call pt back to room. Pt in restroom at this time.
[2018-08-14] MEDS ORDERED: NS IV 1000 ML 1,000 ML IV SCH (22:55)
[2018-08-14] MEDS ORDERED: ONDANSETRON 4 MG/2 ML (SDV) Z0FRAN IVP ONE (23:00)
[2018-08-14] MEDS ORDERED: KETOROLAC 60 MG/2 ML VIAL IV ONE (23:00)
--- NOTE | 2018-08-14 23:00 | ED Back Pain ---
General Chief Complaint: Back Problems Stated Complaint: BACK PAIN Nursing Triage Note: Pt c/o L lower back pain. pt reports he had back pain yesterday and throughout the day today but pain got much worse approx 1 hour [employer] Nursing Sepsis Screen: No Definite Risk Source of Information: Patient, Family (the daughter) Exam Limitations: No Limitations History of Present Illness Date Seen by Provider: Aug 14, 2018 Time Seen by Provider: 22:45 Initial Comments Patient presents to ER by private conveyance with chief complaint of presently worsening back pain over the last 2 days but for the past hour it is become very severe intractable and causing him to be restless. On the left side at the level of his kidney. He says when he is 21 had some kidney stones that were similar pain to this. He's not been able to urinate. He denies any recent hematuria or dysuria. He says a couple months ago was in the ER did have pyelonephritis. No fevers or chills. He is nauseated with dry heaving. He has a history of hypertension takes half a tablet of Bystolic daily. Since the pain came on severe today he has not taken anything for it. Allergies and Home Medications Allergies Uncoded Allergies: MUSCLE RELAXERS (Allergy, Unknown, 12/28/17) Home Medications Hydrocodone/Acetaminophen 1 Each Tablet, 1 EACH PO Q6H PRN for PAIN-MODERATE Prescribed by: LIBBY KENNY on 06/18/18 1528 Nebivolol HCl 2.5 Mg Tablet, 2.5 MG PO DAILY, (Reported) Pantoprazole Sodium 40 Mg Tablet.dr, 40 MG PO DAILY Prescribed by: MATHEW FRAZIER on 03/01/18 0958 Sulfamethoxazole/Trimethoprim 1 Each Tablet, 1 EACH PO BID Prescribed by: LIBBY KENNY on 06/18/18 1528 Patient Home Medication List Home Medication List Reviewed: Yes Review of Systems Constitutional: No chills, No diaphoresis EENTM: No ear discharge, No ear pain Respiratory: No cough, No short of breath Cardiovascular: No chest pain, No palpitations Gastrointestinal: No abdominal pain, No constipation, No diarrhea; nausea, vomiting Genitourinary: No discharge, No dysuria; hesitancy Musculoskeletal: No back pain, No joint pain Skin: No pruritus, No rash Past Mzdywxy-Whjebg-Aifmhb Hx Patient Social History Alcohol Use: Denies Use Recreational Drug Use: No Smoking Status: Never a Smoker 2nd Hand Smoke Exposure: No Recent Foreign Travel: No Contact w/Someone Who Travel: No Recent Infectious Disease Expo: No Recent Hopitalizations: No Physical Abuse: No Sexual Abuse: No Immunizations Up To Date Tetanus Booster (TDap): Unknown Seasonal Allergies Seasonal Allergies: No Past Medical History Surgeries: Yes Tonsillectomy Respiratory: Yes Sleep Apnea Currently Using CPAP: Yes Currently Using BIPAP: No Cardiac: Yes Hypertension Neurological: No Reproductive Disorders: No Sexually Transmitted Disease: No HIV/AIDS: No Genitourinary: No Gastrointestinal: Yes Gastroesophageal Reflux Musculoskeletal: No Endocrine: No HEENT: No Loss of Vision: Denies Hearing Impairment: Denies Cancer: No Psychosocial: No Integumentary: No Blood Disorders: No Family Medical History Colon cancer Physical Exam Vital Signs Vital Signs - First Documented 08/14/18 08/15/18 22:43 01:23 Temp 96.6 Pulse 85 Resp 18 B/P (MAP) 146/112 (123) Pulse Ox 95 O2 Delivery Room Air Capillary Refill : Less Than 3 Seconds Height, Weight, BMI Height: 6'0" Weight: 280lbs. 0.0oz. 127.502248tn; 39.1 BMI Method:Stated General Appearance: Anxious, Other (restless) HEENT: PERRL/EOMI, Pharynx Normal, Moist Mucous Membranes Neck: Full Range of Motion, Normal Inspection Cardiovascular: Regular Rate, Rhythm, Normal Peripheral Pulses Respiratory: Chest Non Tender, Lungs Clear, Normal Breath Sounds, No Accessory Muscle Use, No Respiratory Distress Gastrointestinal: Normal Bowel Sounds, No Organomegaly, Non Tender, Soft Neurologic/Psychiatric: Alert, Oriented x3, No Motor/Sensory Deficits Skin: Normal Color, Warm/Dry Progress/Results/Core Measures Results/Orders Lab Results Laboratory Tests Test 08/14/18 22:49 Range/Units White Blood Count 9.6 4.3-11.0 10^3/uL Red Blood Count 4.90 4.35-5.85 10^6/uL Hemoglobin 14.8 13.3-17.7 G/DL Hematocrit 43 40-54 % Mean Corpuscular Volume 88 80-99 FL Mean Corpuscular Hemoglobin 30 25-34 PG Mean Corpuscular Hemoglobin Concent 34 32-36 G/DL Red Cell Distribution Width 12.6 10.0-14.5 % Platelet Count 210 130-400 10^3/uL Mean Platelet Volume 9.3 7.4-10.4 FL Neutrophils (%) (Auto) 62 42-75 % Lymphocytes (%) (Auto) 27 12-44 % Monocytes (%) (Auto) 9 0-12 % Eosinophils (%) (Auto) 2 0-10 % Basophils (%) (Auto) 0 0-10 % Neutrophils # (Auto) 5.9 1.8-7.8 X 10^3 Lymphocytes # (Auto) 2.6 1.0-4.0 X 10^3 Monocytes # (Auto) 0.9 0.0-1.0 X 10^3 Eosinophils # (Auto) 0.2 0.0-0.3 10^3/uL Basophils # (Auto) 0.0 0.0-0.1 10^3/uL Sodium Level 139 135-145 MMOL/L Potassium Level 3.6 3.6-5.0 MMOL/L Chloride Level 106 98-107 MMOL/L Carbon Dioxide Level 21 21-32 MMOL/L Anion Gap 12 5-14 MMOL/L Blood Urea Nitrogen 18 7-18 MG/DL Creatinine 1.26 0.60-1.30 MG/DL Estimat Glomerular Filtration Rate 60 BUN/Creatinine Ratio 14 Glucose Level 113 H 70-105 MG/DL Calcium Level 9.8 8.5-10.1 MG/DL Corrected Calcium 9.6 8.5-10.1 MG/DL Total Bilirubin 0.7 0.1-1.0 MG/DL Aspartate Amino Transf (AST/SGOT) 33 5-34 U/L Alanine Aminotransferase (ALT/SGPT) 52 0-55 U/L Alkaline Phosphatase 40 40-136 U/L Total Protein 6.8 6.4-8.2 GM/DL Albumin 4.2 3.2-4.5 GM/DL Lipase 81 H 8-78 U/L My Orders Orders - NOA PALMER Ct Abd/Pelvis Wo(Kidney Stone) (08/14/18 22:55) Abdomen/Kub 1view (08/14/18 22:55) Cbc With Automated Diff (08/14/18 22:55) Comprehensive Metabolic Panel (08/14/18 22:55) Lipase (08/14/18 22:55) Ua Culture If Indicated (08/14/18 22:55) Saline Lock/Iv-Start (08/14/18 22:55) Ns Iv 1000 Ml (Sodium Chloride 0.9%) (08/14/18 22:55) Ketorolac Injection (Toradol Injection) (08/14/18 23:00) Ondansetron Injection (Zofran Injectio (08/14/18 23:00) Fentanyl Injection (Sublimaze Injection (08/15/18 00:45) Ceftriaxone For Iv Use (Rocephin For I (08/15/18 00:45) Medications Given in ED Current Medications Medications Dose Ordered Sig/Addison Route Start Time Stop Time Status Last Admin Dose Admin Ceftriaxone Sodium 1000 mg/ Sterile Water 10 ml @ 200 mls/hr ONCE ONCE IV 08/15/18 00:45 08/15/18 00:47 DC 08/15/18 00:51 200 MLS/HR Fentanyl Citrate 50 mcg ONCE ONCE IVP 08/15/18 00:45 08/15/18 00:46 DC 08/15/18 00:51 50 MCG Ketorolac Tromethamine 60 mg ONCE ONCE IV 08/14/18 23:00 08/14/18 23:01 DC 08/14/18 23:14 60 MG Ondansetron HCl 4 mg ONCE ONCE IVP 08/14/18 23:00 08/14/18 23:01 DC 08/14/18 23:14 4 MG Vital Signs/I&O 08/14/18 08/15/18 08/15/18 22:43 00:51 01:23 Temp 96.6 96.6 Pulse 85 76 Resp 18 16 B/P (MAP) 146/112 (123) 131/87 (102) Pulse Ox 95 O2 Delivery Room Air Blood Pressure Mean: 123 Progress Progress Note #1: Time: 22:59 Progress Note Toradol, Zofran and a liter of saline to help him urinate. Pyelonephritis versus a kidney stone given his amount of restlessness. CT and KUB. Labs. Progress Note #2: Time: 00:46 Progress Note We'll give him some faint his pains coming back. His nausea is resolved. We'll give him some Rocephin and treated outpatient. He says are aware of the pancreatic tail mass and Dr. Robin is following it. We have made recommendations that he also follow the pulmonary nodules with a CT of his chest. Progress Note #3: Time: :52 Progress Note Now the patient's pain is under control we are going to allow him to go home. Diagnostic Imaging Diagonstic Imaging: Xray Plain Films/CT/US/NM/MRI: abdomen (KUB 1 view) Comments Nonspecific bowel gas pattern Reviewed: Reviewed by Me Diagonstic Imaging: CT (without contrast kidney stone study) Plain Films/CT/US/NM/MRI: abdomen, pelvis Comments Mild left hydronephrosis from a 6 mm left distal ureter calculus. Could be some mild proctitis. Diffuse hepatic steatosis. Follow-up CT of the chest recommended in 3 months to evaluate right middle lobe pulmonary nodule and further evaluate addiction to establish stability. Follow-up enhanced CT contrast or MRI to evaluate for more indeterminate pancreatic tail mass and differential diagnosis includes a cyst, peripheral intraductal papillary neoplasm. Reviewed: Reviewed by Me Departure Impression Primary Impression: Left ureteral calculus Additional Impressions: Pulmonary nodules Pancreatic mass Disposition: HOME, SELF-CARE Condition: Stable Departure-Patient Inst. Decision time for Depature: :52 Referrals: SHAGUFTA ROBIN MD (PCP/Family) Primary Care Physician ABNER HUANG MD Patient Instructions: Kidney Stones (DC) Add. Discharge Instructions: Drink lots of water. Caffeine is in encouraged. Use ibuprofen as well as the hydrocodone one to 2 tablets every 6 hours as needed to control your pain. Follow-up with Dr. Huang come Thursday morning because your stone will probably need help passing. Take Flomax daily until stone passes. Strain your urine see if you catch the stone if it passes. Use the Zofran every 6 hours if you needed for nausea. Take the Keflex twice a day for the next week. All discharge instructions reviewed with patient and/or family. Voiced understanding. Scripts Hydrocodone Bit/Acetaminophen (Hydrocodone/Acetaminophen 5/325mg Tablet) 1 Tab Tab 1-2 EACH PO Q6H PRN for BREAKTHROUGH PAIN MDD 10, #15 TAB 0 Refills Prov: NOA PALMER 08/15/18 Tamsulosin HCl (Flomax) 0.4 Mg Cap 0.4 MG PO DAILY for 7 Days, #7 CAP 0 Refills Prov: NOA PALMER 08/15/18 Ondansetron (Ondansetron Odt) 4 Mg Tab.rapdis 4 MG PO Q6H PRN for NAUSEA/VOMITING, #8 TAB 0 Refills Prov: NOA PALMER 08/15/18 Cephalexin (Cephalexin) 500 Mg Tablet 500 MG PO BID for 7 Days, #14 TAB 0 Refills Prov: NOA PALMER 08/15/18 Copy Copies To 1: SHAGUFTA ROBIN MD; ABNER HUANG MD, TITUS J Aug 14, 2018 23:00
[2018-08-14 23:01] LABS: BASOPHILS % (AUTO) 0 % (0-10); EOSINOPHILS # (AUTO) 0.2 10^3/uL (0.0-0.3); EOSINOPHILS % (AUTO) 2 % (0-10); HEMATOCRIT 43 % (40-54); HEMOGLOBIN 14.8 G/DL (13.3-17.7); LYMPHOCYTES # (AUTO) 2.6 X 10^3 (1.0-4.0); LYMPHOCYTES % (AUTO) 27 % (12-44); MEAN CORPUSCULAR HEMOGLOBIN 30 PG (25-34); MEAN CORPUSCULAR HGB CONC 34 G/DL (32-36); MEAN CORPUSCULAR VOLUME 88 FL (80-99); MEAN PLATELET VOLUME 9.3 FL (7.4-10.4); MONOCYTES # (AUTO) 0.9 X 10^3 (0.0-1.0); MONOCYTES % (AUTO) 9 % (0-12); NEUTROPHILS # (AUTO) 5.9 X 10^3 (1.8-7.8); NEUTROPHILS % (AUTO) 62 % (42-75); PLATELET COUNT 210 10^3/uL (130-400); RED CELL DISTRIBUTION WIDTH 12.6 % (10.0-14.5); WHITE BLOOD COUNT 9.6 10^3/uL (4.3-11.0)
[2018-08-14 23:18] LABS: ALBUMIN 4.2 GM/DL (3.2-4.5); BILIRUBIN,TOTAL 0.7 MG/DL (0.1-1.0); CALCIUM 9.8 MG/DL (8.5-10.1); CREATININE SERUM 1.26 MG/DL (0.60-1.30); POTASSIUM 3.6 MMOL/L (3.6-5.0); TOTAL PROTEIN 6.8 GM/DL (6.4-8.2)
[2018-08-15] MEDS ORDERED: cefTRIAXone FOR IV USE 1,000 MG in WATER (STERILE) FOR INJECTION 10 ML IV ONE (00:45)
[2018-08-15] MEDS ORDERED: fentaNYL INJECTION 100 MCG/2 ML AMP IVP ONE (00:45)
[2018-08-15 01:23] VITALS: BP 131/87
[2018-08-15] MEDS ORDERED: ONDA4TAB11 PO (01:56)
[2018-08-15] MEDS ORDERED: ACHD5005 PO (01:56)
[2018-08-15] MEDS ORDERED: CEPH500T PO (01:56)
[2018-08-15] MEDS ORDERED: TAMS0.4C98 PO (01:56)
[2018-08-15 02:00] VITALS: BP 119/71
[2018-08-15] MEDS ORDERED: RX-HYDROCODONE/APAP 5/325 MG #4 TAB PK PO PRN (02:00)
--- NOTE | 2018-08-15 07:15 | Diagnostic Imaging Report ---
INDICATION: Flank pain COMPARISON: None. FINDINGS: Single view of the abdomen demonstrates no abnormal calcifications. The bowel gas pattern is normal. There is slight constipation. There is no free air. IMPRESSION: Slight constipation without bowel obstruction or ileus. Dictated by: Dictated on workstation # [id number]
--- NOTE | 2018-08-15 07:58 | Diagnostic Imaging Report ---
PROCEDURE: CT urinary tract, rule out kidney stone. TECHNIQUE: Multiple contiguous axial images were obtained through the abdomen and pelvis without the use of intravenous contrast. INDICATION: Left abdominal pain Comparison is made to study of 07/09/2018. On the uppermost image obtained, there is a questionable 0.5 cm nodule in the right middle lobe. This was not seen on the previous abdominal CT. Unenhanced images of the liver and spleen reveal no focal abnormality. There is distention of the stomach with particulate matter and fluid. No gallbladder abnormality is identified. A 1.6 cm hypodense nodule in the pancreatic body is not significantly changed. There is no evidence of adrenal gland abnormality. Right kidney is stable and unremarkable. There is slight left hydronephrosis and hydroureter to the level of an approximately 0.6 cm distal left ureteric stone. Prostate gland is somewhat enlarged and irregular which could be due to inflammation. There is no evidence of appendiceal abnormality. There is no evidence of free fluid within the abdomen or pelvis and no pathologic adenopathy is identified. There is inguinal herniation of fat, bilaterally. There is no bowel herniation or obstruction detected. IMPRESSION: At least partially obstructing 0.6 cm distal left ureteric stone. A 1.6 cm low-density nodule the pancreas is stable suggesting a benign etiology, however, clinical correlation and possible followup CT imaging would be useful. Consideration could be given to thoracic imaging given the possible presence of 0.5 cm right middle lobe nodule. Dictated by: Dictated on workstation # [id number]
== END 2018-08-15 02:05 | disposition home or self-care (01) ==
LOC: EDUNIT# 22:17 → ER 22:18
DX: N13.2 Hydronephrosis with renal and ureteral calculous obstruction (principal); K86.9 Disease of pancreas, unspecified; R91.8 Other nonspecific abnormal finding of lung field; I10 Essential (primary) hypertension; G47.30 Sleep apnea, unspecified; K21.9 Gastro-esophageal reflux disease without esophagitis; Z90.89 Acquired absence of other organs; Z80.0 Family history of malignant neoplasm of digestive organs
CPT/HCPCS: 36415; 74018; 74176; 80053; 83690; 85025

== ENCOUNTER → 2018-08-17 | Outpatient (CLI) | payer BC ==
[~2018-08-17] MED LIST changes: +ACHD5005 PO; +CEPH500T PO; +CIPR-225 PO; +ONDA4TAB11 PO; +PHEN-640 PO; +TAMS0.4C98 PO
--- NOTE | 2018-08-17 18:52 | Diagnostic Imaging Report ---
INDICATION: Left ureteral stone, two weeks post extracorporeal shockwave lithotripsy. TECHNIQUE: Two supine views of the abdomen at 01:22 p.m. CORRELATION STUDY: 08/14/2018. FINDINGS: Scattered areas of colonic fecal retention noted with distal colonic fecal loading. No definitive calcification over the renal silhouettes and expected course of either ureter. Previously noted density in left upper quadrant likely owing to distended or fluid-filled stomach. IMPRESSION: 1. No definitive calcification over the renal silhouettes and expected course of either ureter. Dictated by: Dictated on workstation # [id number]
== END ==
LOC: RAD 13:06
PROVIDERS: ATTEND Urology
DX: N20.1 Calculus of ureter (principal); Z98.890 Other specified postprocedural states
CPT/HCPCS: 74018

== ENCOUNTER 2018-08-18 06:06 | Day surgery (SDC) | payer BC ==
[~2018-08-18] VITALS: Ht 181.6 cm; Wt 80.0 kg
[~2018-08-18 06:06] MED LIST changes: -CIPR-225 PO; -PHEN-640 PO
[2018-08-18] MEDS ORDERED: cefTRIAXone FOR IV USE 1,000 MG in WATER (STERILE) FOR INJECTION 10 ML IV ONE (06:15)
[2018-08-18] MEDS ORDERED: CATHETER FLUSH 10 ML SYR IV PRN (06:45)
[2018-08-18] MEDS ORDERED: LACTATED RINGERS 1,000 ML IV PRN (06:49)
[2018-08-18] MEDS ORDERED: ROCURONIUM 10 MG/ML 5 ML SYRINGE IV ONE (06:57)
[2018-08-18] MEDS ORDERED: proPOfol 200 MG/20 ML (DIPRIVAN) VIAL IV ONE (06:57)
[2018-08-18] MEDS ORDERED: ONDANSETRON 4 MG/2 ML (SDV) Z0FRAN ONE (06:57)
[2018-08-18] MEDS ORDERED: MIDAZOLAM 2 MG/2 ML (VERSED) VIAL ONE (06:58)
[2018-08-18] MEDS ORDERED: LIDOCAINE PF 2% 5 ML (XYLOCAINE) VIAL ONE (06:58)
[2018-08-18] MEDS ORDERED: fentaNYL INJECTION 100 MCG/2 ML AMP ONE (06:58)
--- NOTE | 2018-08-18 07:07 | Progress Note-Pre Operative ---
Pre-Operative Progress Note H&P Reviewed The H&P was reviewed, patient examined and no changes noted. Date Seen by Provider: Aug 18, 2018 Time Seen by Provider: 07:07 Date H&P Reviewed: Aug 18, 2018 Time H&P Reviewed: 07:07 Pre-Operative Diagnosis: LT DISTAL URETERL STONE ABNER HUANG MD Aug 18, 2018 07:07
[2018-08-18 07:08] VITALS: BP 131/94
--- NOTE | 2018-08-18 07:33 | Diagnostic Imaging Report ---
INDICATION: Status post lithotripsy. COMPARISON: 08/17/2018. FINDINGS AND IMPRESSION: 1. No radiopaque renal or ureteral calculi are appreciated by radiography. Scattered pelvic phleboliths. 2. Nonobstructive bowel gas pattern Dictated by: Dictated on workstation # [id number]
[2018-08-18] MEDS ORDERED: GLYCOPYRROLATE 0.2 MG/ML (ROBINUL) 2 ML VIAL ONE (07:51)
[2018-08-18] MEDS ORDERED: NEOSTIGMINE 1 MG/ML 5 ML SYRINGE ONE (07:51)
[2018-08-18] MEDS ORDERED: SEVOFLURANE (ULTANE) 15 ML INHAL SOLN ONE (07:53)
[2018-08-18] MEDS ORDERED: FUROSEMIDE 40 MG/4 ML INJ (LASIX) ONE (07:54)
[2018-08-18] MEDS ORDERED: KETOROLAC 30 MG/ML VIAL ONE (07:54)
--- NOTE | 2018-08-18 08:06 | Progress Note-Post Operative ---
Post-Operative Progess Note Surgeon (s)/Fur Pointer (s) Surgeon ABNER HUANG MD Fur Pointer: NONE Pre-Operative Diagnosis LT DISTAL URETERAL STONE Post-Operative Diagnosis SAME Procedure & Operative Findings Date of Procedure 08/18/18 Procedure Performed/Findings LT URETEROSCOPY WITH STONE LITHOTRIPSY Anesthesia Type GENERAL Estimated Blood Loss Estimated blood loss (mL): NONE Specimens/Packing Specimens Removed NONE Packing: NONE ABNER HUANG MD Aug 18, 2018 08:06
--- NOTE | 2018-08-18 08:08 | Discharge Inst-Urology ---
Discharge Inst-Urology Discharge Medications New, Converted, or Re-newed RX: RX on Chart Patient Instructions/Follow Up Plan Please make appointment to been seen in office in 2 weeks. May resume work tomorrow, NOT today Increase oral fluids. Diet as tolerated. If questions or concerns contact your physician Or seek help at emergency department. ABNER HUANG MD Aug 18, 2018 08:08
[2018-08-18 08:55] VITALS: BP 116/86
[2018-08-18 09:25] VITALS: BP 107/78
[2018-08-18] MEDS ORDERED: PHEN-640 PO (09:28)
[2018-08-18] MEDS ORDERED: CIPR-225 PO (09:28)
[2018-08-18] MEDS ORDERED: TAMS0.4C98 PO (09:28)
[2018-08-18 09:52] VITALS: BP 111/87
[2018-08-18 09:58] VITALS: BP 111/87
--- NOTE | 2018-08-18 12:00 | Anesthesia-General Post-Op ---
General Patient Condition Mental Status/LOC: Same as Preop Cardiovascular: Satisfactory Nausea/Vomiting: Absent Respiratory: Satisfactory Pain: Controlled Complications: Absent Post Op Complications Complications None Follow Up Care/Instructions Patient Instructions None needed. Anesthesia/Patient Condition Patient Condition Patient was seen this morning after the procedure and he was doing well, no complaints, stable vital signs, no apparent adverse anesthesia problems. CLEO RAMOS DO Aug 18, 2018 12:00
--- NOTE | 2018-08-18 15:01 | OPERATIVE REPORT ---
DATE OF SERVICE: 08/18/2018 PREOPERATIVE DIAGNOSIS: Left distal ureteral stone. POSTOPERATIVE DIAGNOSIS: Left distal ureteral stone. OPERATION PERFORMED: Left ureteroscopy with stone lithotripsy. SURGEON: Ravi Huang MD ANESTHESIA: General. COMPLICATIONS: None. DESCRIPTION OF PROCEDURE: Under satisfactory general anesthesia, the patient in lithotomy position, genitalia were prepped and draped in usual sterile fashion. Cystoscope was introduced under vision. The anterior urethra was normal. The prostate was mildly enlarged with mild bladder neck obstruction. Bladder was entered and revealed mild trabeculations. Ureteric orifices normal, except for a sluggish efflux on the left side. Using the foroblique lens, I dilated the left ureteral orifice intramural portion to accommodate a 6.9 Kh[place] semi-rigid ureteroscope. I went up the ureter and finally found the stone in the mid ureter. I broke it up completely with the lithoclast. The fragments were flowing down already. We went above it. There were no fragments and withdrew the ureteroscope. The patient tolerated the procedure and anesthesia well, and was sent to recovery room in stable condition. Job ID: [id number] DocumentID: [id number] Dictated Date: 08/18/2018 08:09:52 Racecar Driver Date: 08/18/2018 08:26:05 Dictated By: RAVI HUANG MD
== END 2018-08-18 10:05 | disposition home or self-care (01) ==
LOC: SDC 06:06
PROVIDERS: ATTEND Urology
DX: N20.1 Calculus of ureter (principal); Z11.2 Encounter for screening for other bacterial diseases; I10 Essential (primary) hypertension; N40.0 Benign prostatic hyperplasia without lower urinary tract symptoms; G47.33 Obstructive sleep apnea (adult) (pediatric); Z79.899 Other long term (current) drug therapy
CPT/HCPCS: 74018; 87081

== ENCOUNTER → 2018-08-24 | Outpatient (CLI) | payer BC ==
[~2018-08-24] MED LIST changes: +CIPR-225 PO; +PHEN-640 PO
--- NOTE | 2018-08-24 16:52 | Diagnostic Imaging Report ---
PROCEDURE: CT chest without contrast. TECHNIQUE: Multiple contiguous axial images were obtained through the chest without the use of intravenous contrast. INDICATION: Pulmonary nodule, followup. COMPARISON: Correlation is made with prior CT abdomen and pelvis study from 08/14/2018. FINDINGS: No axillary lymphadenopathy is seen. Hilar and mediastinal evaluation is limited without intravenous contrast but no gross abnormality is seen. No pericardial or pleural fluid is detected. 5-6 mm density right middle lobe is again noted and is indeterminate. Remainder of the pulmonary parenchyma is clear. Central airways are patent. Upper abdomen demonstrates stable 17 mm low-density in the pancreatic body. IMPRESSION: 6 mm right middle lobe density, indeterminate. Followup CT chest in 6 months is recommended to confirm stability. Dictated by: Dictated on workstation # [id number]
== END ==
LOC: RAD 12:39
PROVIDERS: ATTEND Nurse Practitioner Family
DX: J98.4 Other disorders of lung (principal); R91.1 Solitary pulmonary nodule
CPT/HCPCS: 71250

== ENCOUNTER 2018-09-05 09:33 | Outpatient (RCR) | payer BC | END 2018-12-02 | disposition home or self-care (01) | LOC: LAB 09:33 | PROVIDERS: ATTEND Urology | DX: N20.9 Urinary calculus, unspecified (principal) | CPT/HCPCS: 82140; 82340; 82507; 82570; 83735; 83945; 83986; 84105; 84133; 84300; 84392; 84560 ==

== ENCOUNTER → 2018-09-24 | Outpatient (CLI) | payer BC ==
[2018-09-24 07:53] LABS: HEMOGLOBIN 15.9 G/DL (13.3-17.7); MEAN PLATELET VOLUME 9.1 FL (7.4-10.4); RED CELL DISTRIBUTION WIDTH 12.7 % (10.0-14.5); WHITE BLOOD COUNT 6.5 10^3/uL (4.3-11.0)
[2018-09-24 08:10] LABS: ALANINE AMINOTRANSFERASE 67 U/L (0-55); ALBUMIN 4.4 GM/DL (3.2-4.5); ALKALINE PHOSPHATASE 45 U/L (40-136); BILIRUBIN,TOTAL 0.8 MG/DL (0.1-1.0); BUN/CREATININE RATIO 12; CALCIUM 9.7 MG/DL (8.5-10.1); CARBON DIOXIDE 24 MMOL/L (21-32); CHLORIDE 104 MMOL/L (98-107); CREATININE SERUM 1.07 MG/DL (0.60-1.30); GFR ESTIMATED > 60; GLUCOSE 104 MG/DL (70-105); POTASSIUM 3.9 MMOL/L (3.6-5.0); SODIUM 138 MMOL/L (135-145); TOTAL PROTEIN 7.3 GM/DL (6.4-8.2)
--- NOTE | 2018-09-24 09:29 | Diagnostic Imaging Report ---
PROCEDURE: CT chest without contrast. TECHNIQUE: Multiple contiguous axial images were obtained through the chest without the use of intravenous contrast. Auto Exposure Controls were utilized during the CT exam to meet ALARA standards for radiation dose reduction. INDICATION: Followup pulmonary nodules. Correlation is made with prior CT from 08/24/2018. FINDINGS: No axillary lymphadenopathy is seen. Hilar and mediastinal evaluation is limited without intravenous contrast. No pericardial or pleural fluid is identified. Tiny density right middle lobe stable 6 mm. No new parenchymal density is seen. Cystic structure in the pancreatic body appears stable. IMPRESSION: Stable noncontrast CT chest. Right middle lobe nodule is stable, however, followup was obtained at one month. This cannot prove benignity. As previously recommended, followup at least 6 months would be recommended for further evaluation. Dictated by: Dictated on workstation # [id number]
== END ==
LOC: RAD 07:38
PROVIDERS: ATTEND Nurse Practitioner Family
DX: R91.8 Other nonspecific abnormal finding of lung field (principal)
CPT/HCPCS: 36415; 71250; 80053; 85027

== ENCOUNTER → 2018-10-01 | Outpatient (CLI) | payer BC ==
--- NOTE | 2018-10-01 11:48 | Diagnostic Imaging Report ---
PROCEDURE: US Hepatic (Liver). TECHNIQUE: Multiple real-time grayscale images were obtained over the right upper quadrant in various projections. INDICATION: Elevated liver enzymes. FINDINGS: There is hepatomegaly with some fatty infiltration of the liver. There is no biliary duct dilatation. Common bile duct measures less than 5 mm. There is no cholelithiasis, gallbladder wall thickening or pericholecystic fluid. Pancreas is not well seen due to bowel gas. Right kidney is normal. There is no ascites. IMPRESSION: Unremarkable right upper quadrant ultrasound. Dictated by: Dictated on workstation # [id number]
== END ==
LOC: RAD 09:07
PROVIDERS: ATTEND Nurse Practitioner Family
DX: R74.8 Abnormal levels of other serum enzymes (principal)
CPT/HCPCS: 76705

== ENCOUNTER → 2019-06-03 | Outpatient (CLI) | payer BC ==
--- NOTE | 2019-06-03 14:35 | Diagnostic Imaging Report ---
EXAMINATION: CT Chest without contrast. TECHNIQUE: Multiple contiguous axial images were obtained through the chest without the use of intravenous contrast. All CT scans use one or more of the following dose optimizing techniques: automated exposure control, MA and/or KvP adjustment based on a patient size and exam type, or iterative reconstruction. HISTORY: PULMONARY NODULE F/U COMPARISON: 09/24/2018. FINDINGS: The lungs are clear without edema or pneumonia. No pleural effusion or pneumothorax. There is 6 mm flat fissural nodule along the minor fissure is unchanged. No new nodules are seen. Heart size is normal. No pericardial effusion. Aorta is normal in caliber. There is no axillary or supraclavicular lymphadenopathy. There is no mediastinal lymphadenopathy. Cystic lesion in the pancreatic body is unchanged measuring approximately 15 mm. There are no suspicious osseous lesions. IMPRESSION: 1. Stable 6 mm flat fissural nodule along the minor fissure in the right lung in keeping with a lymph node. This can be considered benign with no further follow-up required. Dictated by: Dictated on workstation # [id number]
== END ==
LOC: RAD 13:37
PROVIDERS: ATTEND Nurse Practitioner Family
DX: R91.1 Solitary pulmonary nodule (principal)
CPT/HCPCS: 71250

== ENCOUNTER → 2019-06-10 | Outpatient (CLI) | payer BC ==
--- NOTE | 2019-06-10 15:46 | Diagnostic Imaging Report ---
PROCEDURE: US Scrotum. TECHNIQUE: Multiple real-time grayscale images were obtained over the scrotum in various projections bilaterally. INDICATION: Increasing left testicular and groin pain. FINDINGS: Right testicle measures 4.9 x 2.3 x 3.4 cm and the left testicle measures 4.7 x 2.1 x 3.6 cm. Both testes demonstrate fairly homogeneous echotexture. No discrete testicular mass is identified. There is blood flow to both testes. Right epididymis does contain a 10 mm cyst. Left epididymis is unremarkable. There are bilateral hydroceles, largest on the left. No varicocele is detected. IMPRESSION: 1. No evidence of testicular mass or vascular compromise. 2. Right epididymal cyst. 3. Bilateral hydroceles. Dictated by: Dictated on workstation # [id number]
== END ==
LOC: RAD 13:42
PROVIDERS: ATTEND Nurse Practitioner Family
DX: N43.3 Hydrocele, unspecified (principal); N50.3 Cyst of epididymis
CPT/HCPCS: 76870

== ENCOUNTER → 2019-07-05 | Outpatient (CLI) | payer BC ==
[~2019-07-05] MED LIST changes: -TAMS0.4C98 PO; +TMSL.4C PO
--- NOTE | 2019-07-05 15:11 | Diagnostic Imaging Report ---
PROCEDURE: CT abdomen and pelvis without contrast. TECHNIQUE: Multiple contiguous axial images were obtained through the abdomen and pelvis without the use of intravenous contrast. Auto Exposure Controls were utilized during the CT exam to meet ALARA standards for radiation dose reduction. INDICATION: Bilateral groin pain, left greater. COMPARISON: Correlation is made with prior CT from 08/14/2018. FINDINGS: The lung bases are clear. The liver and gallbladder are unremarkable. No biliary duct dilatation is seen. Pancreatic body again demonstrates a circumscribed low density lesion measuring approximately 17 mm in size, stable when compared with prior exam. No new pancreatic mass is detected. The spleen is unremarkable. No adrenal mass is detected. Kidneys are without evidence of calculi or hydronephrosis. There is a cortical low density lesion posterior aspect of the left kidney, likely a cyst. No definite ureteral or bladder calculi are detected. The aorta is non-aneurysmal. No central retroperitoneal or mesenteric lymphadenopathy is seen. The small and large bowel loops are normal caliber. There is no free fluid or fluid collection. The prostate is unremarkable. Patient appears to have bilateral fat-containing inguinal hernias. No herniated bowel loops are seen. No pelvic lymphadenopathy is detected. The bony structures are nonacute. IMPRESSION: 1. No evidence of urinary tract calculi or obstruction. 2. Stable cystic lesion in the pancreatic body. 3. Small fat-containing inguinal hernias bilaterally. No other abnormality is detected. Dictated by: Dictated on workstation # [id number]
== END ==
LOC: RAD 07-01 12:56
PROVIDERS: ATTEND Urology
DX: K40.20 Bilateral inguinal hernia, without obstruction or gangrene, not specified as recurrent (principal); K86.2 Cyst of pancreas; N50.812 Left testicular pain; Z87.442 Personal history of urinary calculi
CPT/HCPCS: 74176

== ENCOUNTER → 2021-07-04 | Outpatient (CLI) | payer BC ==
[~2021-07-04] MED LIST changes: -SULF1TAB35 PO; +SULF1TAB38 PO
== END ==
LOC: LABNPT 08:37
PROVIDERS: ATTEND Family Medicine
DX: U07.1 COVID-19 (principal)
CPT/HCPCS: 87635

== ENCOUNTER 2021-07-09 07:55 | Emergency (ER) | payer BC ==
[~2021-07-09] VITALS: Ht 182 cm; Wt 122.4 kg
[2021-07-09 08:39] LABS: BASOPHILS % (AUTO) 0 % (0-10); EOSINOPHILS % (AUTO) 0 % (0-10); HEMATOCRIT 51 % (40-54); HEMOGLOBIN 17.6 g/dL (13.3-17.7); LYMPHOCYTES # (AUTO) 1.8 10^3/uL (1.0-4.0); LYMPHOCYTES % (AUTO) 24 % (12-44); MEAN CORPUSCULAR HEMOGLOBIN 30 pg (25-34); MEAN CORPUSCULAR HGB CONC 35 g/dL (32-36); MEAN CORPUSCULAR VOLUME 87 fL (80-99); MEAN PLATELET VOLUME 9.6 fL (9.0-12.2); MONOCYTES # (AUTO) 0.9 10^3/uL (0.0-1.0); MONOCYTES % (AUTO) 12 % (0-12); NEUTROPHILS # (AUTO) 4.7 10^3/uL (1.8-7.8); NEUTROPHILS % (AUTO) 63 % (42-75); PLATELET COUNT 200 10^3/uL (130-400); WHITE BLOOD COUNT 7.4 10^3/uL (4.3-11.0)
--- NOTE | 2021-07-09 08:40 | ED General ---
General Chief Complaint: COVID19 Suspect/Confirmed Stated Complaint: LOW 02 90%,COVID + Nursing Triage Note: PT PRESENTS TO ED WITH COMPLAINTS OF INCREASED SOA AND WEAKNESS. PT STATES HE STARTED HAVING FEVER AND COUGH ON 06/27/21. PT STATES ON 07/04/21 HE TESTED POSITIVE FOR COVID. Source of Information: Patient Exam Limitations: No Limitations History of Present Illness Date Seen by Provider: Jul 09, 2021 Time Seen by Provider: 08:18 Initial Comments This 55-year-old gentleman presents to the emergency room by private vehicle with complaints of shortness of air, weakness, nausea and vomiting, diarrhea, and chest pain with inspiration. He started having symptoms of COVID-19 on the June 27 or at which time he had a negative home COVID-19 test.. He tested positive for COVID-19 on July 04 when he was tested again at Dr[facility]. He was prescribed doxycycline, dexamethasone, albuterol, and Zofran on July 05. He attempted to return to work and was not doing well. He therefore came to the emergency room. He was noted to have an oxygen saturation of 90% at the screeners desk in the ER waiting room. He is not vaccinated for COVID-19 or influenza. He states all last week he was sitting in a recliner with his CPAP on to alleviate the shortness of breath. Allergies and Home Medications Allergies Uncoded Allergies: MUSCLE RELAXERS (Allergy, Unknown, 12/28/17) Patient Home Medication List Home Medication List Reviewed: Yes Azithromycin (Azithromycin) 250 Mg Tablet, 250 MG PO UD Prescribed by: TAMIR WAGONER on 07/09/21 1220 Ciprofloxacin HCl (Cipro) 500 Mg Tablet, 500 MG PO BID Prescribed by: SASKIA TRAN on 08/18/18 09 Nebivolol HCl (Bystolic) 2.5 Mg Tablet, 2.5 MG PO DAILY, (Reported) Entered as Reported by: KEAR JARAMILLO on 02/26/18 1143 Pantoprazole Sodium (Protonix) 40 Mg Tablet.dr, 40 MG PO DAILY Prescribed by: MATHEW FRAZIER on 03/01/18 0958 Phenazopyridine HCl (Pyridium) 200 Mg Tablet, 1 TAB PO TID Prescribed by: SASKIA TRAN on 08/18/18 09 Tamsulosin HCl (Flomax) 0.4 Mg Cap, 0.4 MG PO DAILY Prescribed by: SASKIA TRAN on 08/18/18 0928 Review of Systems Review of Systems Constitutional: see HPI EENTM: other (Dry mucous membranes) Respiratory: see HPI Cardiovascular: see HPI Gastrointestinal: see HPI Genitourinary: no symptoms reported Musculoskeletal: see HPI Skin: no symptoms reported Psychiatric/Neurological: See HPI Hematologic/Lymphatic: No Symptoms Reported Immunological/Allergic: no symptoms reported Past Flkfypa-Xsladn-Bxekru Hx Patient Social History Tobacco Use?: No Substance use?: No Alcohol Use?: No Pt feels they are or have been: No Immunizations Up To Date Tetanus Booster (TDap): Unknown Influenza Vaccine Up-to-Date: No; Not Current Seasonal Allergies Seasonal Allergies: No Past Medical History Surgery/Hospitalization HX: PMH: SLEEP APNEA Surgeries: Yes Tonsillectomy Respiratory: Yes Sleep Apnea Currently Using CPAP: Yes Currently Using BIPAP: No Cardiac: Yes Hypertension Neurological: No Reproductive Disorders: No Sexually Transmitted Disease: No HIV/AIDS: No Genitourinary: No Gastrointestinal: Yes Gastroesophageal Reflux Musculoskeletal: No Endocrine: No HEENT: No Loss of Vision: Denies Hearing Impairment: Denies Cancer: No Psychosocial: No Integumentary: No Blood Disorders: No Family Medical History Colon cancer Physical Exam Vital Signs Vital Signs - First Documented 07/09/21 08:10 Temp 35.8 Pulse 105 Resp 24 B/P (MAP) 136/100 (112) Pulse Ox 95 Capillary Refill : Less Than 3 Seconds Height, Weight, BMI Height: 5'11.50" Weight: 176lbs. 6.0oz. 80.680417gv; 36.00 BMI Method:Stated General Appearance: WD/WN, Mild Distress (Shortness of breath), Obese HEENT: PERRL/EOMI, Normal ENT Inspection, Other (Oropharynx dry) Neck: Normal Inspection; No JVD Respiratory: Lungs Clear, Normal Breath Sounds, No Accessory Muscle Use, No Res piratory Distress, Other (Tachypnea with short shallow breaths) Cardiovascular: No Edema, No Murmur, Tachycardia Gastrointestinal: Normal Bowel Sounds, Non Tender, Soft; No Distended Extremity: Normal Inspection, Non Tender, No Calf Tenderness, No Pedal Edema, Other (Negative Jaswinder) Neurologic/Psychiatric: Alert, Oriented x3, No Motor/Sensory Deficits, Normal Mood/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, 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 Norm as Tested, Other (Subdued, flat demeanor/affect) Skin: Normal Color, Warm/Dry Focused Exam Lactate Level 07/09/21 08:35: Lactic Acid Level 1.22 Lactic Acid Level Laboratory Tests Test 07/09/21 08:35 Lactic Acid Level 1.22 MMOL/L (0.50-2.00) Progress/Results/Core Measures Suspected Sepsis SIRS Temperature: Pulse: 105 Respiratory Rate: 24 Laboratory Tests 07/09/21 08:14: White Blood Count 7.4 Blood Pressure 136 /100 Mean: 112 07/09/21 08:35: Lactic Acid Level 1.22 Laboratory Tests 07/09/21 08:14: Creatinine 1.08, INR Comment 1.0, Platelet Count 200, Total Bilirubin 1.8H Results/Orders Lab Results Laboratory Tests Test 07/09/21 08:14 07/09/21 08:35 Range/Units White Blood Count 7.4 4.3-11.0 10^3/uL Red Blood Count 5.83 H 4.30-5.52 10^6/uL Hemoglobin 17.6 13.3-17.7 g/dL Hematocrit 51 40-54 % Mean Corpuscular Volume 87 80-99 fL Mean Corpuscular Hemoglobin 30 25-34 pg Mean Corpuscular Hemoglobin Concent 35 32-36 g/dL Red Cell Distribution Width 12.4 10.0-14.5 % Platelet Count 200 130-400 10^3/uL Mean Platelet Volume 9.6 9.0-12.2 fL Immature Granulocyte % (Auto) 0 % Neutrophils (%) (Auto) 63 42-75 % Lymphocytes (%) (Auto) 24 12-44 % Monocytes (%) (Auto) 12 0-12 % Eosinophils (%) (Auto) 0 0-10 % Basophils (%) (Auto) 0 0-10 % Neutrophils # (Auto) 4.7 1.8-7.8 10^3/uL Lymphocytes # (Auto) 1.8 1.0-4.0 10^3/uL Monocytes # (Auto) 0.9 0.0-1.0 10^3/uL Eosinophils # (Auto) 0.0 0.0-0.3 10^3/uL Basophils # (Auto) 0.0 0.0-0.1 10^3/uL Immature Granulocyte # (Auto) 0.0 0.0-0.1 10^3/uL Prothrombin Time 13.5 12.2-14.7 SEC INR Comment 1.0 0.8-1.4 Activated Partial Thromboplast Time 28 24-35 SEC D-Dimer 0.56 H 0.00-0.49 UG/ML Sodium Level 138 135-145 MMOL/L Potassium Level 3.0 L 3.6-5.0 MMOL/L Chloride Level 100 98-107 MMOL/L Carbon Dioxide Level 22 21-32 MMOL/L Anion Gap 16 H 5-14 MMOL/L Blood Urea Nitrogen 16 7-18 MG/DL Creatinine 1.08 0.60-1.30 MG/DL Estimat Glomerular Filtration Rate 82 BUN/Creatinine Ratio 15 Glucose Level 125 H 70-105 MG/DL Calcium Level 9.1 8.5-10.1 MG/DL Corrected Calcium 8.9 8.5-10.1 MG/DL Magnesium Level 2.5 H 1.6-2.4 MG/DL Total Bilirubin 1.8 H 0.1-1.0 MG/DL Aspartate Amino Transf (AST/SGOT) 104 H 5-34 U/L Alanine Aminotransferase (ALT/SGPT) 130 H 0-55 U/L Alkaline Phosphatase 45 40-136 U/L C-Reactive Protein High Sensitivity 0.94 H 0.00-0.50 MG/DL Total Protein 8.0 6.4-8.2 GM/DL Albumin 4.3 3.2-4.5 GM/DL Procalcitonin 0.05 <0.10 NG/ML Lactic Acid Level 1.22 0.50-2.00 MMOL/L Micro Results Microbiology 07/09/21 Blood Culture - Preliminary, Resulted No growth My Orders Orders - TAMIR GREEN MD Cbc With Automated Diff (07/09/21 08:18) Comprehensive Metabolic Panel (07/09/21 08:18) Blood Culture (07/09/21 08:18) Protime With Inr (07/09/21 08:18) Partial Thromboplastin Time (07/09/21 08:18) Chest 1 View, Ap/Pa Only (07/09/21 08:18) Ed Iv/Invasive Line Start (07/09/21 08:18) Ed Iv/Invasive Line Start (07/09/21 08:18) Vital Signs Adult Sepsis Patie Q15M (07/09/21 08:18) O2 (07/09/21 08:18) Remove Rings In Anticipation O (07/09/21 08:18) Lactic Acid Analyzer (07/09/21 08:18) Fibrin Degradation Products (07/09/21 08:18) Procalcitonin (Pct) (07/09/21 08:18) Hs C Reactive Protein (07/09/21 08:18) Lactated Ringers (Lr 1000 Ml Iv Solution (07/09/21 08:45) Magnesium (07/09/21 08:34) Ct Angio Chest W (07/09/21 09:46) Potassium Chloride (Tablet) (Klor Con Ta (07/09/21 10:00) Ondansetron Injection (Zofran Injectio (07/09/21 10:00) Iohexol Injection (Omnipaque 350 Mg/Ml 1 (07/09/21 10:00) Received Contrast (Hold Metformin- Contr (07/09/21 10:00) Sodium Chloride Flush (Catheter Flush Sy (07/09/21 10:00) Ns (Ivpb) (Sodium Chloride 0.9% Ivpb Bag (07/09/21 10:00) Ceftriaxone 1 Gm Pre-Mix (Rocephin 1 Gm (07/09/21 11:41) Medications Given in ED Vital Signs/I&O 07/09/21 07/09/21 08:10 12:48 Temp 35.8 35.8 Pulse 105 87 Resp 24 20 B/P (MAP) 136/100 (112) 119/94 Pulse Ox 95 94 Capillary Refill : Less Than 3 Seconds Blood Pressure Mean: 112 Progress Note #1: Time: 08:41 Progress Note Patient seen and examined. Labs and chest x-ray pending. IV fluids ordered. Progress Note #2: Progress Note Patient was out of the treatment window for monoclonal antibodies or antiviral medications. IV fluids were infused and potassium replaced orally. Patient did not require admission. Suspicion for pneumonia on CXR prompted antibiotics. Incidental findings on CTA are of concern and were reviewed in detail with the patient. See discharge instructions for more discussion. Diagnostic Imaging Diagonstic Imaging: Xray Plain Films/CT/US/NM/MRI: chest Comments NAME: BHARAT CONNOR [facility] REC#: [id number] PT STATUS: DEP ER : 1965 PHYSICIAN: TAMIR GREEN MD ADMIT DATE: 07/09/21/ER Signed Date of Exam:07/09/21 CHEST 1 VIEW, AP/PA ONLY CLINICAL INDICATION: Patient is Covid positive. EXAM: Portable chest x-ray, upright view. COMPARISON: None. FINDINGS: Lungs/pleura: There is ill-defined airspace opacification involving the left lung base, left midlung field, and left retrocardiac region which may represent lung infiltrate. The remainder of the lungs is clear. There is no pneumothorax. There is no pleural effusion. Mediastinum: Unremarkable. Pulmonary vasculature: Unremarkable. Heart: There is cardiomegaly. Bones/extrathoracic soft tissue: There are degenerative spurs involving the thoracic spine. IMPRESSION: 1: There is ill-defined airspace opacification involving the left lung base, left midlung field, and left retrocardiac region which may represent lung infiltrate. 2: There is cardiomegaly with no significant pulmonary vascular congestion. 3: The report was faxed to Infection Control by jl@9:05 AM. Dictated by: Dictated on workstation # [id number] Dict: 07/09/21901 Trans: 07/09/211647 [id number] Interpreted by: LANDON LALA MD Electronically signed by: LANDON LALA MD 07/09/21 1648 Diagonstic Imaging: CT Plain Films/CT/US/NM/MRI: chest Comments CT angiogram chest viewed by me and report reviewed. See report below: NAME: BHARAT CONNOR JR [facility] REC#: [id number] PT STATUS: REG ER : 1965 PHYSICIAN: TAMIR GREEN MD ADMIT DATE: 07/09/21/ER Draft Date of Exam:07/09/21 CT ANGIO CHEST W CLINICAL INDICATION: Patient COVID positive and low oxygen. Suspected pulmonary embolism. EXAM: CT angiogram of the chest performed with 87 cc Omnipaque 350 IV contrast. Coronal and oblique MIP images of the vasculature were created to better evaluate anatomy. Auto Exposure Controls were utilized during the CT exam to meet ALARA standards for radiation dose reduction. COMPARISON: CT angiogram of the chest dated 06/03/2019. CT scan of the abdomen and pelvis without contrast dated 06/25/2019. FINDINGS: There is interval increased size of the two pleural-based nodules involving the superior aspect of the left major fissure, which are closely adjacent to each other. The largest one more medially measures 11 mm and the one adjacent to it laterally measures 7 mm. Previously, these measured 8 mm x 6 mm, respectively. These may represent fissural nodules/lymph nodes. Stable roughly 6 mm flattened shelby-fissural nodular area along the minor fissure. There is interval development of ground-glass opacification involving the posterior aspect of the right upper lobe. There is nodular ground-glass and areas of consolidation involving the periphery of both upper lobes. There is patchy consolidation in the areas of amorphous ground-glass opacification involving both lower lobes with the periphery affected the most. These findings have progressed in the interim and concerning for infectious process. There is mild bronchial wall thickening with some areas of mucus plugging involving the bronchi with the lower lobes affected the most. There are bilateral perihilar lymph nodes with the right side more prominent than the left, which has slightly progressed in the interim. There are small mediastinal lymph nodes again seen which have slightly increased. There is no significant axillary lymphadenopathy. There is prominence of the root of the aorta, which was also noted on the prior study measuring at least 4.1 cm in greatest transverse dimension measured on the coronal view. There is no evidence of pulmonary embolism. Stable 1.7 cm cystic area in the tail of the pancreas. Visualized upper abdominal structures show no other significant abnormality. IMPRESSION: 1: There is no evidence of pulmonary embolism. 2: There is interval development of bilateral lung nodular areas of consolidation and ground-glass opacification involving both lungs and peripheral consolidation in both lower lobes concerning for pneumonia. 3: There is interval increased size of the mediastinal and hilar lymph nodes. 4: Again noted prominence of the root of the thoracic aorta measuring at least 4.1 cm. 5: Stable 1.7 cm cystic area involving the tail of the pancreas, which may represent pseudocyst or cystic neoplasm. 6: Interval increased size of suspected fissural nodules/lymph nodes along the upper aspect of the left major fissure. The increase in size may be reactive. 7: Stable fissural nodule/lymph node involving the minor fissure. Dictated on workstation # [id number] Dict: 07/09/21 1107 Trans: 07/09/21 1130 [id number] Interpreted by: LANDON LALA MD Departure Impression Primary Impression: Pneumonia due to COVID-19 virus Additional Impressions: Aortic root enlargement Pancreatic cyst Pulmonary nodule Hypokalemia Disposition: HOME, SELF-CARE Condition: Stable Departure-Patient Inst. Decision time for Depature: 11:54 Referrals: SHAGUFTA ROBIN MD (PCP/Family) Primary Care Physician Patient Instructions: Hypokalemia (DC), COVID-19 Overview Add. Discharge Instructions: Drink plenty of clear liquids to stay well-hydrated. Eat some foods and beverages high in potassium such as citrus fruits and juices to help replace your low potassium level. Pedialyte or sports drinks also have some potassium. Complete your antibiotic as prescribed. Follow-up with your primary care provider soon as possible for repeat examination. If possible, obtain a finger pulse oximeter and measure your oxygen levels often. If you are getting repeated measurements less than 92% or any measurements less than 90%, please return to the ER. Use your inhaler up to 4 puffs in a 4-hour period of time to help with shortness of air and wheezing. Stay home from work for the remainder of the day. Avoid remaining sedentary for prolonged periods of time. Get up and walk around the house frequently. Change positions often and alternate between lying on your back, sides, and stomach when resting. Eat a well-balanced diet and take a multivitamin daily. When you follow-up with your primary care provider, please review your CT scan in detail. There are multiple findings that need addressed includin. Pulmonary nodules which may be related to COVID pneumonia but should be followed. 2. A pancreatic cyst of uncertain nature. Further imaging should be used to monitor and to further characterize this pancreatic cyst. 3. There is a prominent aortic root that should be monitored by your primary care provider and/or a coffee shop manager. Call with questions or concerns. Return to the ER if you have worsening symptoms. All discharge instructions reviewed with patient and/or family. Voiced understanding. Scripts Azithromycin (Azithromycin) 250 Mg Tablet 250 MG PO UD, #6 TAB TAKE 2 TABLETS ON DAY ONE THEN TAKE 1 TABLET DAILY FOR FOUR MORE DAYS Prov: TAMIR GREEN MD 07/09/21 Work/School Note: Work Release Form Date Seen in the Emergency Department: Jul 09, 2021 Return to Work: Jul 15, 2021 Restrictions: Return-No Fever (24hrs), Return-No Vomiting(24hrs) Copy Copies To 1: SHAGUFTA ROBIN MD, JOSHUA T MD Jul 09, 2021 08:40
[2021-07-09 08:41] LABS: ALBUMIN 4.3 GM/DL (3.2-4.5)
[2021-07-09 08:43] LABS: CALCIUM 9.1 MG/DL (8.5-10.1)
[2021-07-09] MEDS ORDERED: LACTATED RINGERS 1,000 ML IV ONE (08:45)
[2021-07-09 08:46] LABS: BILIRUBIN,TOTAL 1.8 MG/DL (0.1-1.0); FIBRIN DEGRADATION PRODUCTS 0.56 UG/ML (0.00-0.49); PROTHROMBIN TIME PATIENT 13.5 SEC (12.2-14.7)
[2021-07-09 08:48] LABS: CREATININE SERUM 1.08 MG/DL (0.60-1.30)
--- NOTE | 2021-07-09 09:06 | Diagnostic Imaging Report ---
CLINICAL INDICATION: Patient is Covid positive. EXAM: Portable chest x-ray, upright view. COMPARISON: None. FINDINGS: Lungs/pleura: There is ill-defined airspace opacification involving the left lung base, left midlung field, and left retrocardiac region which may represent lung infiltrate. The remainder of the lungs is clear. There is no pneumothorax. There is no pleural effusion. Mediastinum: Unremarkable. Pulmonary vasculature: Unremarkable. Heart: There is cardiomegaly. Bones/extrathoracic soft tissue: There are degenerative spurs involving the thoracic spine. IMPRESSION: 1: There is ill-defined airspace opacification involving the left lung base, left midlung field, and left retrocardiac region which may represent lung infiltrate. 2: There is cardiomegaly with no significant pulmonary vascular congestion. 3: The report was faxed to Infection Control by anderson@9:05 AM. Dictated by: Dictated on workstation # [id number]
[2021-07-09] MEDS ORDERED: KCL 10 MEQ TAB (MICRO K) PO ONE (10:00)
[2021-07-09] MEDS ORDERED: ONDANSETRON 4 MG/2 ML (SDV) Z0FRAN IVP ONE (10:00)
[2021-07-09] MEDS ORDERED: IOHEXOL 350 MG/ML 100 ML (OMNIPAQUE 350) VIAL IV ONE (10:00)
[2021-07-09] MEDS ORDERED: NS 100 ML (IVPB) BAG IV ONE (10:00)
[2021-07-09] MEDS ORDERED: CATHETER FLUSH 10 ML SYR IV PRN (10:00)
[2021-07-09] MEDS ORDERED: HOLD METFORMIN - RECEIVED CONTRAST 20 ML VIAL IV SCH (10:00)
--- NOTE | 2021-07-09 11:30 | Diagnostic Imaging Report ---
CLINICAL INDICATION: Patient COVID positive and low oxygen. Suspected pulmonary embolism. EXAM: CT angiogram of the chest performed with 87 cc Omnipaque 350 IV contrast. Coronal and oblique MIP images of the vasculature were created to better evaluate anatomy. Auto Exposure Controls were utilized during the CT exam to meet ALARA standards for radiation dose reduction. COMPARISON: CT angiogram of the chest dated 06/03/2019. CT scan of the abdomen and pelvis without contrast dated 06/25/2019. FINDINGS: There is interval increased size of the two pleural-based nodules involving the superior aspect of the left major fissure, which are closely adjacent to each other. The largest one more medially measures 11 mm and the one adjacent to it laterally measures 7 mm. Previously, these measured 8 mm x 6 mm, respectively. These may represent fissural nodules/lymph nodes. Stable roughly 6 mm flattened shelby-fissural nodular area along the minor fissure. There is interval development of ground-glass opacification involving the posterior aspect of the right upper lobe. There is nodular ground-glass and areas of consolidation involving the periphery of both upper lobes. There is patchy consolidation in the areas of amorphous ground-glass opacification involving both lower lobes with the periphery affected the most. These findings have progressed in the interim and concerning for infectious process. There is mild bronchial wall thickening with some areas of mucus plugging involving the bronchi with the lower lobes affected the most. There are bilateral perihilar lymph nodes with the right side more prominent than the left, which has slightly progressed in the interim. There are small mediastinal lymph nodes again seen which have slightly increased. There is no significant axillary lymphadenopathy. There is prominence of the root of the aorta, which was also noted on the prior study measuring at least 4.1 cm in greatest transverse dimension measured on the coronal view. There is no evidence of pulmonary embolism. Stable 1.7 cm cystic area in the tail of the pancreas. Visualized upper abdominal structures show no other significant abnormality. IMPRESSION: 1: There is no evidence of pulmonary embolism. 2: There is interval development of bilateral lung nodular areas of consolidation and ground-glass opacification involving both lungs and peripheral consolidation in both lower lobes concerning for pneumonia. 3: There is interval increased size of the mediastinal and hilar lymph nodes. 4: Again noted prominence of the root of the thoracic aorta measuring at least 4.1 cm. 5: Stable 1.7 cm cystic area involving the tail of the pancreas, which may represent pseudocyst or cystic neoplasm. 6: Interval increased size of suspected fissural nodules/lymph nodes along the upper aspect of the left major fissure. The increase in size may be reactive. 7: Stable fissural nodule/lymph node involving the minor fissure. Dictated by: Dictated on workstation # [id number]
[2021-07-09] MEDS ORDERED: cefTRIAXone 1 GM PRE-MIX 50 ML IV STA (11:41)
[2021-07-09] MEDS ORDERED: AZIT250T12 PO ×2 (12:05→12:20)
[2021-07-09 12:48] VITALS: BP 119/94
== END 2021-07-09 12:47 | disposition home or self-care (01) ==
LOC: EDUNIT# 07:55 → ER 07:56
DX: U07.1 COVID-19 (principal); J12.82 Pneumonia due to coronavirus disease 2019; I77.819 Aortic ectasia, unspecified site; K86.2 Cyst of pancreas; R91.1 Solitary pulmonary nodule; E87.6 Hypokalemia; E66.9 Obesity, unspecified; G47.30 Sleep apnea, unspecified; I10 Essential (primary) hypertension; K21.9 Gastro-esophageal reflux disease without esophagitis; Z68.36 Body mass index [BMI] 36.0-36.9, adult; Z79.899 Other long term (current) drug therapy
CPT/HCPCS: 36415; 71045; 71275; 80053; 83605; 83735; 84145; 85025; 85379; 85610; 85730; 86141; 87040